=== PATIENT | male | born 1965 | race African-American/Black ===

== ENCOUNTER 2020-05-31 17:12 | Inpatient (IN) | payer OTHER ==
[~2020-05-31] VITALS: Ht 190.5 cm; Wt 102.1 kg
[~2020-05-31 17:12] MED LIST: LISI-517 PO
[2020-05-31] MEDS ORDERED: MORPHINE SULFATE 4 MG/ML VIAL. IV/SQ PRN (18:15)
[2020-05-31] MEDS ORDERED: PIPERACILLIN/TAZOBACTAM 3.375 GM in IV NORMAL SALINE 50ML 50 ML IV ONE (18:30)
--- NOTE | 2020-05-31 18:46 | RAD ---
XR CHEST 1V History: Reason: necrotic wound / Spl. Instructions: / History: Comparison: None. Findings: No consolidation or pleural effusion. Normal heart size. No pneumothorax. Impression: 1. No acute cardiopulmonary process. Electronically signed by: Janak Celestin DO (05/31/2020 6:43 PM) [facility]
--- NOTE | 2020-05-31 18:51 | RAD ---
XR FOOT_LEFT 3 VIEWS History: Reason: necrotic wound / Spl. Instructions: / History: Technique: 3 views left foot. Comparison: None. Findings: Gas along the plantar aspect of the first digit. First digit soft tissue swelling. Normal alignment. No fracture. No radiographic evidence of osteomyelitis. Mild first MTP DJD. Plantar calcaneal spur. M ild ankle DJD. Dorsal foot soft tissue swelling. Impression: 1. Focus of gas along the plantar aspect of the first digit, may relate to known wound or subcutaneo us gas related to gas-forming organisms. Recommend further clinical evaluation and short-term follow- up. 2. No radiographic evidence of osteomyelitis. If persistent clinical concern, MRI can further evalua te. 3. Diffuse dorsal foot soft tissue swelling. Electronically signed by: Janak Celestin DO (05/31/2020 6:49 PM) SAMANTHA
[2020-05-31] MEDS ORDERED: VANCOMYCIN 2 GM in IV NORMAL SALINE 500ML BAG 500 ML IV ONE (19:00)
[2020-05-31 19:02] LABS: BASO # 0.1 x10^3/uL (0.0-0.2); BASO % 0 % (0-3); EOS # 0.1 x10^3/uL (0.0-0.7); EOS % 0 % (0-3); HEMATOCRIT 28.2 % (39.0-53.0); HEMOGLOBIN 9.4 g/dL (13.0-17.5); LYMPH # 1.5 x10^3/uL (1.0-4.8); LYMPH % 11 % (24-48); MEAN CORPUSCULAR HEMOGLOBIN 25 pg (25-35); MEAN CORPUSCULAR HGB CONC 34 g/dL (31-37); MEAN CORPUSCULAR VOLUME 75 fL (79-100); MONO # 1.3 x10^3/uL (0.0-1.1); MONO % 9 % (0-9); NEUT # 11.2 x10^3/uL (1.8-7.7); NEUT % 80 % (31-73); PLATELET COUNT 361 x10^3/uL (140-400); RED BLOOD COUNT 3.76 x10^6/uL (4.30-5.70); RED CELL DISTRIBUTION WIDTH 18.8 % (11.5-14.5); WHITE BLOOD COUNT 14.1 x10^3/uL (4.0-11.0)
--- NOTE | 2020-05-31 19:02 | EKG ---
[facility] [address] [place] [address] Test Date: 2020-05-31 Test Time: 18:22:25 Pat Name: TAMARA FOFANA Department: Room: Gender: M [employer] Compliance Officer: : 1965 Requested By: DANIEL PENA Order Number: [id number] Reading MD: Measurements Intervals Hunt Rate: 70 P: 35 MA: 160 QRS: -10 QRSD: 92 T: 30 QT: 408 QTc: 443 Interpretive Statements SINUS RHYTHM LEFTWARD AXIS OTHERWISE NORMAL ECG RI6.01 No previous ECG available for comparison
[2020-05-31 19:08] LABS: PROTHROMBIN TIME PATIENT 15.7 SEC (11.7-14.0)
[2020-05-31 19:10] LABS: CALCIUM 8.6 mg/dL (8.5-10.1); CREATININE 1.5 mg/dL (0.7-1.3); GFR 58.4; POTASSIUM 3.9 mmol/L (3.5-5.1)
--- NOTE | 2020-05-31 19:13 | HP ---
ADMIT DATE: 05/31/2020 CHIEF COMPLAINT: Left lower extremity diabetic ulcer. HISTORY OF PRESENT ILLNESS: The patient is a pleasant 55-year-old male who has peripheral vascular disease. He has had diabetes for many years. He has never had any surgeries on his legs, but the left lower extremity he has got a severe diabetic wound. I discussed the case with the ER physician. We are going to admit the patient and consult Orthopedics and give him some IV antibiotics and wound care. PAST MEDICAL HISTORY: Diabetes, hypertension, hyperlipidemia, noncompliance, and peripheral vascular disease. ALLERGIES: None. FAMILY HISTORY: Diabetes. SOCIAL HISTORY: Does not drink, smoke or take drugs. He is . MEDICATIONS: Reviewed, please refer to the MRAD. REVIEW OF SYSTEMS: GENERAL: No history of weight change, weakness or fevers. SKIN: No bruising, hair changes or rashes. EYES: No blurred, double or loss of vision. NOSE AND THROAT: No history of nosebleeds, hoarseness or sore throat. HEART: No history of palpitations, chest pain or shortness of breath on exertion. LUNGS: Denies cough, hemoptysis, wheezing or shortness of breath. GASTROINTESTINAL: Denies changes in appetite, nausea, vomiting, diarrhea or constipation. GENITOURINARY: No history of frequency, urgency, hesitancy or nocturia. NEUROLOGIC: Denies history of numbness, tingling, tremor or weakness. PSYCHIATRIC: No history of panic, anxiety or depression. ENDOCRINE: No history of heat or cold intolerance, polyuria or polydipsia. EXTREMITIES: He complains of left leg pain and oozing. PHYSICAL EXAMINATION: VITALS: Within normal limits and are stable. GENERAL: No apparent distress. Alert and oriented. HEENT: Normal cephalic atraumatic, external auditory canals are patent. EYES: Extraocular muscles are intact, pupils are equally round and reactive to light and accommodation. MUSCULOSKELETAL: Well developed, well nourished, good range of motion. ENDOCRINE: No thyromegaly was palpated. LYMPHATICS: No cervical chain or axillary nodes were noted. HEMATOPOIETIC: No bruising. NECK: Supple, no JVD, no thyromegaly was noted. LUNGS: Clear to auscultation in all lung gardner without rhonchi or wheezing. HEART: RRR, S1, S2 present. Peripheral pulses intact, no obvious murmurs were noted. ABDOMEN: Soft, nontender. Positive bowel sounds no organomegaly, normal bowel sounds. EXTREMITIES: The left leg has severe wounds. Please see the pictures. NEUROLOGIC: Normal speech, normal tone. A & O x 3, moves all extremities, no obvious focal deficits. PSYCHIATRIC: Normal affect, normal mood. Stable. SKIN: No ulcerations or rashes, good skin turgor, no jaundice. VASCULAR: Good capillary refill, neurovascular bundle appears to be intact. LABORATORY DATA: Pending. IMAGING: Foot x-ray shows focus of gas along the plantar aspect of the first digit, may relate to known wound or subcutaneous gas related to gas forming organisms. No osteomyelitis was noted. Diffuse soft tissue swelling. ASSESSMENT AND PLAN: Diabetic foot disease. The patient has been admitted. We will consult Orthopedics. IV antibiotics. Consult Infectious Disease. Home medications, deep vein thrombosis prophylaxis. Full code. PROGNOSIS: Guarded. ANCELMO TODD DO DR: TEX/carmen JOB#: [id number] / [id number]
[2020-05-31 19:16] LABS: ALBUMIN 1.7 g/dL (3.4-5.0); ALBUMIN/GLOBULIN RATIO 0.3 (1.0-1.7); TOTAL BILIRUBIN 1.8 mg/dL (0.2-1.0); TOTAL PROTEIN 8.1 g/dL (6.4-8.2)
[2020-05-31] MEDS: IV NORMAL SALINE 1000ML BAG 1,000 ML IV SCH ×3 (19:18→22:09)
[2020-05-31] MEDS: VANCOMYCIN PER PHARMACY MC PRN (20:15)
--- NOTE | 2020-05-31 20:19 | NUR ---
Pharmacy Vancomycin Dosing Note S: Consulted to monitor and dose vancomycin started 05/31/20. O: TAMARA FOFANA is a 55 year old M with , DIABETIC FOOT ULCER . Other Antibiotics: ZOSYN X1 IN ED LABS: Last BUN: 20 Last Creatinine: 1.5 Creatinine Clearance: 67 mL/min Last WBC: 14.1 Tmax (past 24 hours): AFEBRILE Vancomycin Dosing: Dosing Weight: Adjusted Target Trough: 10-20 A: Based on: VANCO dosing guidelines P: 1. Begin Vancomycin 2000mg LOAD dose, then 1250 mg IV q12h 2. Follow up Trough level on 06/02/20 at 0730 3. Pharmacy will continue to monitor, follow and adjust therapy as needed. EFREN OLIVEIRA RPH, 05/31/20 2019
[2020-05-31] MEDS ORDERED: MORPHINE SULFATE 4 MG/ML VIAL. IV PRN (20:30)
[2020-05-31] MEDS ORDERED: IV NORMAL SALINE 1000ML BAG 1,000 ML IV ONE (20:30)
[2020-05-31] MEDS ORDERED: ONDANSETRON PF 4 MG/2 ML VIAL. IV PRN (20:30)
[2020-05-31] MEDS ORDERED: ACETAMINOPHEN 325 MG TABLET. PO PRN (20:30)
--- NOTE | 2020-05-31 21:02 | PHYS DOC ---
Past Medical History Past Medical History: CVA, Diabetes-Type II, High Cholesterol, Hypertension Past Surgical History: Appendectomy Smoking Status: Never Smoker Alcohol Use: None Drug Use: None General Adult EDM: Chief Complaint: WOUND CHECK HPI: HPI: Patient is a 55 year old male with history of diabetes type 2, hypertension, high cholesterol, PVD, who presents to the ED today to be evaluated for diabetic foot ulcer on the left that he has had for 3 weeks. Patient states he went to see the doctor today and was told his infection has gotten worse and he needs to come to the ED and be admitted. Patient denies any fever, denies any nausea vomiting. Review of Systems: Review of Systems: Constitutional: Denies fever or chills. [] Eyes: Denies change in visual acuity. [] HENT: Denies nasal congestion or sore throat. [] Respiratory: Denies cough or shortness of breath. [] Cardiovascular: Denies chest pain or edema. [] GI: Denies abdominal pain, nausea, vomiting, bloody stools or diarrhea. [] : Denies dysuria. [] Musculoskeletal: Denies back pain or joint pain. [] Integument: Reports diabetic foot ulcer to the left Neurologic: Denies headache, focal weakness or sensory changes. [] Psychiatric: Denies depression or anxiety. [] Heart Score: C/O Chest Pain: N/A Risk Factors: Risk Factors: DM, Current or recent (<one month) smoker, HTN, HLP, family history of CAD, obesity. Risk Scores: Score 0 - 3: 2.5% MACE over next 6 weeks - Discharge Home Score 4 - 6: 20.3% MACE over next 6 weeks - Admit for Clinical Observation Score 7 - 10: 72.7% MACE over next 6 weeks - Early Invasive Strategies Current Medications: Current Medications Medications (Trade) Dose Ordered Sig/Beverly Start Time Stop Time Status Last Admin Dose Admin Morphine Sulfate (Morphine Sulfate) 4 mg PRN Q15MIN PRN 05/31/20 18:15 05/31/20 20:26 DC Piperacillin Sod/ Tazobactam Sod 3.375 gm/Sodium Chloride 50 ml @ 100 mls/hr 1X ONCE 05/31/20 18:30 05/31/20 18:59 DC 05/31/20 19:18 100 MLS/HR Sodium Chloride 1,000 ml @ 2,550 mls/hr Q24M 05/31/20 18:30 05/31/20 19:30 DC 05/31/20 20:16 2,550 MLS/HR Vancomycin HCl (Vanco Per Pharmacy) 1 each PRN DAILY PRN 05/31/20 18:15 05/31/20 20:15 1 EACH Allergies: Allergies: Allergies Coded Allergies Type Severity Reaction Last Updated Verified No Known Drug Allergies 03/04/13 No Physical Exam: PE: Constitutional: Well developed, well nourished, no acute distress, non-toxic appearance. [] HENT: Normocephalic, atraumatic, bilateral external ears normal, oropharynx mois t, no oral exudates, nose normal. [] Eyes: PERRLA, EOMI, conjunctiva normal, no discharge. [] Neck: Normal range of motion, no tenderness, supple, no stridor. [] Cardiovascular:Heart rate regular rhythm, no murmur [] Lungs & Thorax: Bilateral breath sounds clear to auscultation [] Abdomen: Bowel sounds normal, soft, no tenderness, no masses, no pulsatile masses. [] Skin: Left plantar foot along the great toe and metacarpal with the necrotic black wound approximately 8 x 4 cm. There is another wound on the left fifth toe, left third toe, plantar aspect. There is a roughly 2 x 2 cm. Mild edema noted to the foot. Drainage from the wounds noted. Multiple wounds noted in between the toes as well as the top of the left foot toes. Left bryson with 2 other wounds each roughly 2 cm. Back: No tenderness, no CVA tenderness. [] Extremities: No tenderness, no cyanosis, no clubbing, ROM intact, no edema. [] Neurologic: Alert and oriented X 3, normal motor function, normal sensory function, no focal deficits noted. [] Psychologic: Affect normal, judgement normal, mood normal. [] Current Patient Data: Labs: Laboratory Tests Test 05/31/20 18:25 05/31/20 18:48 SARS-CoV-2 Antigen (Rapid) Negative (NEGATIVE) White Blood Count 14.1 x10^3/uL (4.0-11.0) H Red Blood Count 3.76 x10^6/uL (4.30-5.70) L Hemoglobin 9.4 g/dL (13.0-17.5) L Hematocrit 28.2 % (39.0-53.0) L Mean Corpuscular Volume 75 fL (79-100) L Mean Corpuscular Hemoglobin 25 pg (25-35) Mean Corpuscular Hemoglobin Concent 34 g/dL (31-37) Red Cell Distribution Width 18.8 % (11.5-14.5) H Platelet Count 361 x10^3/uL (140-400) Neutrophils (%) (Auto) 80 % (31-73) H Lymphocytes (%) (Auto) 11 % (24-48) L Monocytes (%) (Auto) 9 % (0-9) Eosinophils (%) (Auto) 0 % (0-3) Basophils (%) (Auto) 0 % (0-3) Neutrophils # (Auto) 11.2 x10^3/uL (1.8-7.7) H Lymphocytes # (Auto) 1.5 x10^3/uL (1.0-4.8) Monocytes # (Auto) 1.3 x10^3/uL (0.0-1.1) H Eosinophils # (Auto) 0.1 x10^3/uL (0.0-0.7) Basophils # (Auto) 0.1 x10^3/uL (0.0-0.2) Prothrombin Time 15.7 SEC (11.7-14.0) H Prothrombin Time INR 1.3 (0.8-1.1) H Activated Partial Thromboplast Time 37 SEC (24-38) Sodium Level 134 mmol/L (136-145) L Potassium Level 3.9 mmol/L (3.5-5.1) Chloride Level 96 mmol/L (98-107) L Carbon Dioxide Level 28 mmol/L (21-32) Anion Gap 10 (6-14) Blood Urea Nitrogen 20 mg/dL (8-26) Creatinine 1.5 mg/dL (0.7-1.3) H Estimated GFR (Cockcroft-Gault) 58.4 BUN/Creatinine Ratio 13 (6-20) Glucose Level 149 mg/dL (70-99) H Lactic Acid Level 0.9 mmol/L (0.4-2.0) Calcium Level 8.6 mg/dL (8.5-10.1) Total Bilirubin 1.8 mg/dL (0.2-1.0) H Aspartate Amino Transferase (AST) 31 U/L (15-37) Alanine Aminotransferase (ALT) 31 U/L (16-63) Alkaline Phosphatase 225 U/L (46-116) H Total Protein 8.1 g/dL (6.4-8.2) Albumin 1.7 g/dL (3.4-5.0) L Albumin/Globulin Ratio 0.3 (1.0-1.7) L Procalcitonin 3.40 ng/mL (0.00-0.10) H Laboratory Tests 05/31/20 18:48 Laboratory Tests 05/31/20 18:48 Vital Signs: Vital Signs Date Time Temp Pulse Resp B/P (MAP) Pulse Ox O2 Delivery O2 Flow Rate FiO2 05/31/20 17:17 97.4 68 18 123/65 (84) 98 Room Air 97.4 EKG: EK Interpreted by Dr. Casas sinus rhythm HR 70 no STEMI [] Radiology/Procedures: Radiology/Procedures: []PROCEDURE: FOOT LEFT 3V XR FOOT_LEFT 3 VIEWS History: Reason: necrotic wound / Spl. Instructions: / History: Technique: 3 views left foot. Comparison: None. Findings: Gas along the plantar aspect of the first digit. First digit soft tissue swelling. Normal alignment. No fracture. No radiographic evidence of osteomyelitis. Mild first MTP DJD. Plantar calcaneal spur. Mild ankle DJD. Dorsal foot soft tissue swelling. Impression: 1. Focus of gas along the plantar aspect of the first digit, may relate to known wound or subcutaneous gas related to gas-forming organisms. Recommend further clinical evaluation and short-term follow-up. 2. No radiographic evidence of osteomyelitis. If persistent clinical concern, MRI can further evaluate. 3. Diffuse dorsal foot soft tissue swelling. Electronically signed by: Janak Celestin DO (05/31/2020 6:49 PM) [facility] DICTATED and SIGNED BY: JANAK CELESTIN DO DATE: 05/31/20 [id number] PROCEDURE: PORTABLE CHEST 1V XR CHEST 1V History: Reason: necrotic wound / Spl. Instructions: / History: Comparison: None. Findings: No consolidation or pleural effusion. Normal heart size. No pneumothorax. Impression: 1. No acute cardiopulmonary process. Electronically signed by: Janak Celestin DO (05/31/2020 6:43 PM) [facility] DICTATED and SIGNED BY: JANAK CELESTIN Jimena DO DATE: 05/31/20 [id number] 0 Course & Med Decision Making: Course & Med Decision Making Pertinent Labs and Imaging studies reviewed. (See chart for details) This is a 55-year-old male patient with history of diabetes, PVD, presenting today with diabetic foot ulcer. The plantar aspect of the foot especially along the great toe and the first metatarsal is necrotic. Multiple areas of necrosis noted to the other toes. Vitals on arrival to the ED temperature 97.4, heart rate 68, respiration 18, blood pressure 133/65, O2 sats 98% on room air. CBC with a WBC of 14.4, hemoglobin 9.4, hematocrit 28.2, CMP with creatinine of 1.5, BUN of 20, lactic 0.9, procalcitonin 3.40. X-ray of the left foot noted for gas-forming infection. Patient was started on the sepsis protocol on arrival to the ED. He was given IV fluids as well as vancomycin and Zosyn. Consulted with Dr. Clifford who will take patient to OR in am Spoke with Dr. Aragon who accepted patient for admission. Catherine Disclaimer: [employer] Disclaimer: This electronic medical record was generated, in whole or in part, using a voice recognition dictation system. Departure Departure Impression: Primary Impression: Diabetic foot ulcer Qualified Codes: E11.621 - Type 2 diabetes mellitus with foot ulcer; L97.523 - Non-pressure chronic ulcer of other part of left foot with necrosis of muscle Additional Impressions: Acute on chronic renal failure Qualified Codes: N17.9 - Acute kidney failure, unspecified; N18.9 - Chronic kidney disease, unspecified Anemia Qualified Codes: D64.9 - Anemia, unspecified Disposition: 09 ADMITTED INPT THIS HOSP Condition: STABLE Referrals: NON,STAFF (PCP) DANIEL PENA APRN May 31, 2020 21:02
[2020-05-31 21:08] LABS: BILIRUBIN,URINE MODERATE (NEG); CLARITY,URINE CLEAR; COLOR,URINE AMBER; NITRITE,URINE NEGATIVE (NEG); PH,URINE 5.5 (<5.0-8.0); PROTEIN,URINE 30 mg/dL (NEG-TRACE)
[2020-05-31 21:17] LABS: BACTERIA,URINE 0 /HPF (0-FEW); GRANULAR CASTS,URINE FEW /HPF; HYALINE CASTS, URINE FEW /HPF; RBC,URINE OCC /HPF (0-2)
[2020-05-31 21:20] VITALS: BP 161/82
[2020-05-31] MEDS ORDERED: DIPH,PERTUSS(ACELL),TET VAC/PF 0.5 ML SYRINGE. VAX IM ONE (22:00)
[2020-05-31 23:00] VITALS: BP 175/85
[2020-05-31] MEDS ORDERED: SITA100T PO (23:07)
[2020-05-31] MEDS ORDERED: CARV25TA2 PO (23:07)
[2020-05-31] MEDS ORDERED: AMLO-186 PO (23:07)
[2020-05-31] MEDS ORDERED: ATOR40TA59 PO (23:07)
[2020-05-31] MEDS ORDERED: TAMS0.4C97 PO (23:07)
[2020-05-31] MEDS ORDERED: METF10007 PO (23:07)
[2020-05-31] MEDS ORDERED: SERT100T PO (23:07)
--- NOTE | 2020-05-31 23:22 | RAD ---
Exam: US DPLX VENOUS EXTREMITY LOWER LT Indication: Lower extremity edema, Left foot wound Technique: Color-flow and pulsed wave duplex ultrasound with compression of venous structures of the left lower extremity. Comparison: None Available. Findings: Occlusive thrombus in both posterior tibial veins. Occlusive thrombus in the left greater saphenous vein at the level of the mid thigh down through the ankle. Impression: 1. Positive for DVT in the left lower extremity. 2. Superficial thrombophlebitis involving the greater saphenous vein from the mid thigh to the ankle. Electronically signed by: Brennan Pineda MD (05/31/2020 11:19 PM) ABIMAEL
--- NOTE | 2020-05-31 23:26 | RAD ---
Realtime grayscale and color Duplex Doppler ultrasonography of the left lower extremity was performed . History: Left foot wound Comparison: None. Findings: Left: Common femoral artery peak systolic velocity measures 182 cm/s. Profunda femoris artery peak systolic velocity measures 121 cm/s. Proximal superficial femoral artery peak systolic velocity measures 271 cm/s. Mid superficial femoral artery peak systolic velocity measures 149 cm/s. Distal superficial femoral artery peak systolic velocity measures 157 cm/s. Popliteal artery peak systolic velocity measures 186 cm/s. Posterior tibial artery peak systolic velocity measures 161 cm/s. Dorsalis pedis artery peak systolic velocity measures 96 cm/s. Monophasic waveforms in the posterior tibial artery and dorsalis pedis artery, consistent with a more proximal stenosis. Impression: Areas of elevated peak systolic velocity in the left lower extremity arterial vasculature consistent with stenosis, most pronounced in the superficial femoral artery proximally. Electronically signed by: Brennan Pineda MD (05/31/2020 11:24 PM) ABIMAEL
[2020-06-01] VITALS (10 sets, daily range): BP systolic 169–198; BP diastolic 82–98
[2020-06-01 04:20] LABS: BASO # 0.1 x10^3/uL (0.0-0.2); BASO % 1 % (0-3); EOS % 0 % (0-3); HEMOGLOBIN 8.7 g/dL (13.0-17.5); LYMPH # 1.8 x10^3/uL (1.0-4.8); LYMPH % 14 % (24-48); MEAN CORPUSCULAR HEMOGLOBIN 25 pg (25-35); MEAN CORPUSCULAR HGB CONC 33 g/dL (31-37); MEAN CORPUSCULAR VOLUME 75 fL (79-100); MONO # 1.3 x10^3/uL (0.0-1.1); MONO % 10 % (0-9); NEUT # 9.7 x10^3/uL (1.8-7.7); NEUT % 75 % (31-73); PLATELET COUNT 361 x10^3/uL (140-400); RED BLOOD COUNT 3.47 x10^6/uL (4.30-5.70); RED CELL DISTRIBUTION WIDTH 18.8 % (11.5-14.5); WHITE BLOOD COUNT 12.9 x10^3/uL (4.0-11.0)
[2020-06-01 05:01] LABS: ALBUMIN 1.4 g/dL (3.4-5.0); ALBUMIN/GLOBULIN RATIO 0.2 (1.0-1.7); CALCIUM 7.8 mg/dL (8.5-10.1); CREATININE 1.4 mg/dL (0.7-1.3); GFR 63.2; POTASSIUM 3.6 mmol/L (3.5-5.1); TOTAL BILIRUBIN 1.7 mg/dL (0.2-1.0); TOTAL PROTEIN 7.1 g/dL (6.4-8.2)
[2020-06-01] MEDS ORDERED: VANCOMYCIN 1.25 GM in IV NORMAL SALINE 250ML 250 ML IV SCH (08:00)
--- NOTE | 2020-06-01 08:35 | PDOC ---
Infectious Disease Note Vital Sign Vital Signs Vital Signs Date Time Temp Pulse Resp B/P (MAP) Pulse Ox O2 Delivery O2 Flow Rate FiO2 06/01/20 08:18 Room Air 06/01/20 03:00 100.2 85 16 172/86 (114) 95 100.2 Labs Lab Laboratory Tests Test 05/31/20 18:25 05/31/20 18:48 05/31/20 20:58 06/01/20 04:00 SARS-CoV-2 Antigen (Rapid) Negative (NEGATIVE) White Blood Count 14.1 x10^3/uL (4.0-11.0) 12.9 x10^3/uL (4.0-11.0) Red Blood Count 3.76 x10^6/uL (4.30-5.70) 3.47 x10^6/uL (4.30-5.70) Hemoglobin 9.4 g/dL (13.0-17.5) 8.7 g/dL (13.0-17.5) Hematocrit 28.2 % (39.0-53.0) 26.0 % (39.0-53.0) Mean Corpuscular Volume 75 fL (79-100) 75 fL (79-100) Mean Corpuscular Hemoglobin 25 pg (25-35) 25 pg (25-35) Mean Corpuscular Hemoglobin Concent 34 g/dL (31-37) 33 g/dL (31-37) Red Cell Distribution Width 18.8 % (11.5-14.5) 18.8 % (11.5-14.5) Platelet Count 361 x10^3/uL (140-400) 361 x10^3/uL (140-400) Neutrophils (%) (Auto) 80 % (31-73) 75 % (31-73) Lymphocytes (%) (Auto) 11 % (24-48) 14 % (24-48) Monocytes (%) (Auto) 9 % (0-9) 10 % (0-9) Eosinophils (%) (Auto) 0 % (0-3) 0 % (0-3) Basophils (%) (Auto) 0 % (0-3) 1 % (0-3) Neutrophils # (Auto) 11.2 x10^3/uL (1.8-7.7) 9.7 x10^3/uL (1.8-7.7) Lymphocytes # (Auto) 1.5 x10^3/uL (1.0-4.8) 1.8 x10^3/uL (1.0-4.8) Monocytes # (Auto) 1.3 x10^3/uL (0.0-1.1) 1.3 x10^3/uL (0.0-1.1) Eosinophils # (Auto) 0.1 x10^3/uL (0.0-0.7) 0.0 x10^3/uL (0.0-0.7) Basophils # (Auto) 0.1 x10^3/uL (0.0-0.2) 0.1 x10^3/uL (0.0-0.2) Prothrombin Time 15.7 SEC (11.7-14.0) Prothromb Time International Ratio 1.3 (0.8-1.1) Activated Partial Thromboplast Time 37 SEC (24-38) Sodium Level 134 mmol/L (136-145) 135 mmol/L (136-145) Potassium Level 3.9 mmol/L (3.5-5.1) 3.6 mmol/L (3.5-5.1) Chloride Level 96 mmol/L (98-107) 100 mmol/L (98-107) Carbon Dioxide Level 28 mmol/L (21-32) 26 mmol/L (21-32) Anion Gap 10 (6-14) 9 (6-14) Blood Urea Nitrogen 20 mg/dL (8-26) 19 mg/dL (8-26) Creatinine 1.5 mg/dL (0.7-1.3) 1.4 mg/dL (0.7-1.3) Estimated GFR (Cockcroft-Gault) 58.4 63.2 BUN/Creatinine Ratio 13 (6-20) 14 (6-20) Glucose Level 149 mg/dL (70-99) 181 mg/dL (70-99) Lactic Acid Level 0.9 mmol/L (0.4-2.0) Calcium Level 8.6 mg/dL (8.5-10.1) 7.8 mg/dL (8.5-10.1) Total Bilirubin 1.8 mg/dL (0.2-1.0) 1.7 mg/dL (0.2-1.0) Aspartate Amino Transf (AST/SGOT) 31 U/L (15-37) 28 U/L (15-37) Alanine Aminotransferase (ALT/SGPT) 31 U/L (16-63) 26 U/L (16-63) Alkaline Phosphatase 225 U/L (46-116) 202 U/L (46-116) Total Protein 8.1 g/dL (6.4-8.2) 7.1 g/dL (6.4-8.2) Albumin 1.7 g/dL (3.4-5.0) 1.4 g/dL (3.4-5.0) Albumin/Globulin Ratio 0.3 (1.0-1.7) 0.2 (1.0-1.7) Procalcitonin 3.40 ng/mL (0.00-0.10) Urine Collection Type Unknown Urine Color Zeina Urine Clarity Clear Urine pH 5.5 (<5.0-8.0) Urine Specific [place] 1.015 (1.000-1.030) Urine Protein 30 mg/dL (NEG-TRACE) Urine Glucose (UA) Negative mg/dL (NEG) Urine Ketones (Stick) Trace mg/dL (NEG) Urine Blood Negative (NEG) Urine Nitrite Negative (NEG) Urine Bilirubin Moderate (NEG) Urine Urobilinogen Dipstick 4.0 mg/dL (0.2 mg/dL) Urine Leukocyte Esterase Trace (NEG) Urine RBC Occ /HPF (0-2) Urine WBC 5-10 /HPF (0-4) Urine Squamous Epithelial Cells Few /LPF Urine Bacteria 0 /HPF (0-FEW) Urine Cellular Casts Few /HPF Urine Hyaline Casts Few /HPF Urine Granular Casts Few /HPF Test 06/01/20 08:08 Glucose (Fingerstick) 172 mg/dL (70-99) Objective Assessment Patient seen consult dictated Plan Plan of Care / EMELY VILLELA MD Jun 01, 2020 08:35
[2020-06-01] MEDS: PIPERACILLIN/TAZOBACTAM 3.375 GM in IV NORMAL SALINE 50ML 50 ML IV SCH ×4 (09:00→23:42)
--- NOTE | 2020-06-01 09:20 | CONS ---
DATE OF CONSULTATION: 06/01/2020 REQUESTING PHYSICIAN: Dr. Aragon. REASON FOR CONSULTATION: Diabetic foot infection. HISTORY OF PRESENT ILLNESS: This is a 55-year-old gentleman with history of peripheral vascular disease and diabetes, who came in with 2-week history of "he said he was in a kitchen and he noticed skin was peeling off." The patient has a foul smelling necrotic wound into the left foot. The patient was put on vancomycin and consult has been requested. The patient denies any fever. Denies any nausea, vomiting, diarrhea, chest pain or shortness of breath. Denies any trauma. PAST MEDICAL HISTORY: Positive for diabetes mellitus, hypertension, CVA, has had appendicectomy, hyperlipidemia and history of depression. SOCIAL HISTORY: Negative for smoking, alcohol use or drug use. ALLERGIES: No known drug allergies. CURRENT MEDICATIONS: Reviewed. REVIEW OF SYSTEMS: As per HPI, all other systems reviewed are negative. PHYSICAL EXAMINATION: GENERAL: Alert, oriented gentleman, not in distress. VITAL SIGNS: Stable with a T-max 100.2, pulse 85, respirations 16 and blood pressure 172/86. HEENT: Both pupils are round and reacting. No conjunctival lesion. No lesion in the mouth. NECK: Supple, no JVP, no lymphadenopathy. LUNGS: Clear. HEART: S1, S2 regular. ABDOMEN: Soft, nontender, no organomegaly. EXTREMITIES: The right lower extremity is unremarkable. The patient does have some superficial skin breakdowns and scabs present. Left lower extremity, the foot is a foul smelling necrotic distal foot involving the large areas of toes and the foot. Dorsalis pedis is not palpable. NEUROLOGIC: The patient is alert, awake and appropriate. No focal neurologic deficit. LABORATORY DATA: White count is 12.9, BUN and creatinine is 19 and 1.4. Liver functions are normal. Total bilirubin is 1.7. Urinalysis 5-10 wbc's. COVID negative. Procalcitonin is 0.4. X-ray of the chest is unremarkable. X-ray of the foot showed a focus of gas along the plantar aspect of the first digit may relate to the known wound or subcutaneous gas forming organism. No osteomyelitis seen. Ultrasound of the lower extremity showed left lower extremity arterial vascular stenosis and the venous Doppler also showed DVT in the left lower extremity, superficial thrombophlebitis is also there. IMPRESSION: 1. Left foot diabetic infection with gangrenous changes. 2. Peripheral arterial disease. 3. Gas in the x-ray probably from the wound as the patient does not look systemically sick, having gas forming organism infection. 4. Diabetes. 5. Hypertension. 6. Renal insufficiency. RECOMMENDATIONS: Continue vancomycin. Although creatinine is improving, we will watch closely. Add Zosyn. Supportive care also get Vascular Surgery involved and we will continue to follow. Thank you very much, Dr. Aragon, for giving me the opportunity to participate in this patient's care. EMELY VILLELA MD DR: LIVIA/carmen JOB#: [id number] / [id number]
--- NOTE | 2020-06-01 10:16 | PDOC ---
PROGRESS NOTES Date of Service DATE: 06/01/20 TIME: 10:13 Subjective Subjective Problems overnight: About 2 weeks worth of worsening left foot pain symptoms and turning black. Objective Vital Signs Vital Signs Date Time Temp Pulse Resp B/P (MAP) Pulse Ox O2 Delivery O2 Flow Rate FiO2 06/01/20 08:18 Room Air 06/01/20 07:00 97.5 129 33 186/88 (120) 98 97.5 Physical Exam Clear necrosis of the left foot distally with adequate sensation otherwise and some scabbed areas on the legs overall but no evidence of proximal infection Labs Laboratory Tests Test 05/31/20 18:25 05/31/20 18:48 05/31/20 20:58 06/01/20 04:00 SARS-CoV-2 Antigen (Rapid) Negative (NEGATIVE) White Blood Count 14.1 x10^3/uL (4.0-11.0) 12.9 x10^3/uL (4.0-11.0) Red Blood Count 3.76 x10^6/uL (4.30-5.70) 3.47 x10^6/uL (4.30-5.70) Hemoglobin 9.4 g/dL (13.0-17.5) 8.7 g/dL (13.0-17.5) Hematocrit 28.2 % (39.0-53.0) 26.0 % (39.0-53.0) Mean Corpuscular Volume 75 fL (79-100) 75 fL (79-100) Mean Corpuscular Hemoglobin 25 pg (25-35) 25 pg (25-35) Mean Corpuscular Hemoglobin Concent 34 g/dL (31-37) 33 g/dL (31-37) Red Cell Distribution Width 18.8 % (11.5-14.5) 18.8 % (11.5-14.5) Platelet Count 361 x10^3/uL (140-400) 361 x10^3/uL (140-400) Neutrophils (%) (Auto) 80 % (31-73) 75 % (31-73) Lymphocytes (%) (Auto) 11 % (24-48) 14 % (24-48) Monocytes (%) (Auto) 9 % (0-9) 10 % (0-9) Eosinophils (%) (Auto) 0 % (0-3) 0 % (0-3) Basophils (%) (Auto) 0 % (0-3) 1 % (0-3) Neutrophils # (Auto) 11.2 x10^3/uL (1.8-7.7) 9.7 x10^3/uL (1.8-7.7) Lymphocytes # (Auto) 1.5 x10^3/uL (1.0-4.8) 1.8 x10^3/uL (1.0-4.8) Monocytes # (Auto) 1.3 x10^3/uL (0.0-1.1) 1.3 x10^3/uL (0.0-1.1) Eosinophils # (Auto) 0.1 x10^3/uL (0.0-0.7) 0.0 x10^3/uL (0.0-0.7) Basophils # (Auto) 0.1 x10^3/uL (0.0-0.2) 0.1 x10^3/uL (0.0-0.2) Prothrombin Time 15.7 SEC (11.7-14.0) Prothromb Time International Ratio 1.3 (0.8-1.1) Activated Partial Thromboplast Time 37 SEC (24-38) Sodium Level 134 mmol/L (136-145) 135 mmol/L (136-145) Potassium Level 3.9 mmol/L (3.5-5.1) 3.6 mmol/L (3.5-5.1) Chloride Level 96 mmol/L (98-107) 100 mmol/L (98-107) Carbon Dioxide Level 28 mmol/L (21-32) 26 mmol/L (21-32) Anion Gap 10 (6-14) 9 (6-14) Blood Urea Nitrogen 20 mg/dL (8-26) 19 mg/dL (8-26) Creatinine 1.5 mg/dL (0.7-1.3) 1.4 mg/dL (0.7-1.3) Estimated GFR (Cockcroft-Gault) 58.4 63.2 BUN/Creatinine Ratio 13 (6-20) 14 (6-20) Glucose Level 149 mg/dL (70-99) 181 mg/dL (70-99) Lactic Acid Level 0.9 mmol/L (0.4-2.0) Calcium Level 8.6 mg/dL (8.5-10.1) 7.8 mg/dL (8.5-10.1) Total Bilirubin 1.8 mg/dL (0.2-1.0) 1.7 mg/dL (0.2-1.0) Aspartate Amino Transf (AST/SGOT) 31 U/L (15-37) 28 U/L (15-37) Alanine Aminotransferase (ALT/SGPT) 31 U/L (16-63) 26 U/L (16-63) Alkaline Phosphatase 225 U/L (46-116) 202 U/L (46-116) Total Protein 8.1 g/dL (6.4-8.2) 7.1 g/dL (6.4-8.2) Albumin 1.7 g/dL (3.4-5.0) 1.4 g/dL (3.4-5.0) Albumin/Globulin Ratio 0.3 (1.0-1.7) 0.2 (1.0-1.7) Procalcitonin 3.40 ng/mL (0.00-0.10) Urine Collection Type Unknown Urine Color Zeina Urine Clarity Clear Urine pH 5.5 (<5.0-8.0) Urine Specific [place] 1.015 (1.000-1.030) Urine Protein 30 mg/dL (NEG-TRACE) Urine Glucose (UA) Negative mg/dL (NEG) Urine Ketones (Stick) Trace mg/dL (NEG) Urine Blood Negative (NEG) Urine Nitrite Negative (NEG) Urine Bilirubin Moderate (NEG) Urine Urobilinogen Dipstick 4.0 mg/dL (0.2 mg/dL) Urine Leukocyte Esterase Trace (NEG) Urine RBC Occ /HPF (0-2) Urine WBC 5-10 /HPF (0-4) Urine Squamous Epithelial Cells Few /LPF Urine Bacteria 0 /HPF (0-FEW) Urine Cellular Casts Few /HPF Urine Hyaline Casts Few /HPF Urine Granular Casts Few /HPF Test 06/01/20 08:08 Glucose (Fingerstick) 172 mg/dL (70-99) Laboratory Tests Test 05/31/20 18:25 05/31/20 18:48 05/31/20 20:58 06/01/20 04:00 SARS-CoV-2 Antigen (Rapid) Negative (NEGATIVE) White Blood Count 14.1 x10^3/uL (4.0-11.0) 12.9 x10^3/uL (4.0-11.0) Red Blood Count 3.76 x10^6/uL (4.30-5.70) 3.47 x10^6/uL (4.30-5.70) Hemoglobin 9.4 g/dL (13.0-17.5) 8.7 g/dL (13.0-17.5) Hematocrit 28.2 % (39.0-53.0) 26.0 % (39.0-53.0) Mean Corpuscular Volume 75 fL (79-100) 75 fL (79-100) Mean Corpuscular Hemoglobin 25 pg (25-35) 25 pg (25-35) Mean Corpuscular Hemoglobin Concent 34 g/dL (31-37) 33 g/dL (31-37) Red Cell Distribution Width 18.8 % (11.5-14.5) 18.8 % (11.5-14.5) Platelet Count 361 x10^3/uL (140-400) 361 x10^3/uL (140-400) Neutrophils (%) (Auto) 80 % (31-73) 75 % (31-73) Lymphocytes (%) (Auto) 11 % (24-48) 14 % (24-48) Monocytes (%) (Auto) 9 % (0-9) 10 % (0-9) Eosinophils (%) (Auto) 0 % (0-3) 0 % (0-3) Basophils (%) (Auto) 0 % (0-3) 1 % (0-3) Neutrophils # (Auto) 11.2 x10^3/uL (1.8-7.7) 9.7 x10^3/uL (1.8-7.7) Lymphocytes # (Auto) 1.5 x10^3/uL (1.0-4.8) 1.8 x10^3/uL (1.0-4.8) Monocytes # (Auto) 1.3 x10^3/uL (0.0-1.1) 1.3 x10^3/uL (0.0-1.1) Eosinophils # (Auto) 0.1 x10^3/uL (0.0-0.7) 0.0 x10^3/uL (0.0-0.7) Basophils # (Auto) 0.1 x10^3/uL (0.0-0.2) 0.1 x10^3/uL (0.0-0.2) Prothrombin Time 15.7 SEC (11.7-14.0) Prothromb Time International Ratio 1.3 (0.8-1.1) Activated Partial Thromboplast Time 37 SEC (24-38) Sodium Level 134 mmol/L (136-145) 135 mmol/L (136-145) Potassium Level 3.9 mmol/L (3.5-5.1) 3.6 mmol/L (3.5-5.1) Chloride Level 96 mmol/L (98-107) 100 mmol/L (98-107) Carbon Dioxide Level 28 mmol/L (21-32) 26 mmol/L (21-32) Anion Gap 10 (6-14) 9 (6-14) Blood Urea Nitrogen 20 mg/dL (8-26) 19 mg/dL (8-26) Creatinine 1.5 mg/dL (0.7-1.3) 1.4 mg/dL (0.7-1.3) Estimated GFR (Cockcroft-Gault) 58.4 63.2 BUN/Creatinine Ratio 13 (6-20) 14 (6-20) Glucose Level 149 mg/dL (70-99) 181 mg/dL (70-99) Lactic Acid Level 0.9 mmol/L (0.4-2.0) Calcium Level 8.6 mg/dL (8.5-10.1) 7.8 mg/dL (8.5-10.1) Total Bilirubin 1.8 mg/dL (0.2-1.0) 1.7 mg/dL (0.2-1.0) Aspartate Amino Transf (AST/SGOT) 31 U/L (15-37) 28 U/L (15-37) Alanine Aminotransferase (ALT/SGPT) 31 U/L (16-63) 26 U/L (16-63) Alkaline Phosphatase 225 U/L (46-116) 202 U/L (46-116) Total Protein 8.1 g/dL (6.4-8.2) 7.1 g/dL (6.4-8.2) Albumin 1.7 g/dL (3.4-5.0) 1.4 g/dL (3.4-5.0) Albumin/Globulin Ratio 0.3 (1.0-1.7) 0.2 (1.0-1.7) Procalcitonin 3.40 ng/mL (0.00-0.10) Urine Collection Type Unknown Urine Color Zeina Urine Clarity Clear Urine pH 5.5 (<5.0-8.0) Urine Specific [place] 1.015 (1.000-1.030) Urine Protein 30 mg/dL (NEG-TRACE) Urine Glucose (UA) Negative mg/dL (NEG) Urine Ketones (Stick) Trace mg/dL (NEG) Urine Blood Negative (NEG) Urine Nitrite Negative (NEG) Urine Bilirubin Moderate (NEG) Urine Urobilinogen Dipstick 4.0 mg/dL (0.2 mg/dL) Urine Leukocyte Esterase Trace (NEG) Urine RBC Occ /HPF (0-2) Urine WBC 5-10 /HPF (0-4) Urine Squamous Epithelial Cells Few /LPF Urine Bacteria 0 /HPF (0-FEW) Urine Cellular Casts Few /HPF Urine Hyaline Casts Few /HPF Urine Granular Casts Few /HPF Test 06/01/20 08:08 Glucose (Fingerstick) 172 mg/dL (70-99) Imaging Vascular studies noted proximal occlusion and monophasic flow distally Assessment Assessment 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 I went over with him that at least he should have consideration of potentially correcting the vascular issues as I think is a little premature to address the foot right now prior to addressing those issues. Full consult dictated Justicifation of Admission Dx: Justifications for Admission: Justification of Admission Dx: N/A MATTIE GABRIEL MD Jun 01, 2020 10:16
--- NOTE | 2020-06-01 10:27 | NUR ---
This RN notified Dr. Condon of pt's elevated BP. Dr. Condon stated he would place orders for Labetolol IV. Will await these orders.
[2020-06-01] MEDS: VANCOMYCIN PER PHARMACY MC PRN (11:22)
[2020-06-01] MEDS: LABETALOL 20 MG/4 ML DISP.SYRIN. IVP PRN (11:37)
[2020-06-01] MEDS ORDERED: IV RINGERS,LACTATED 1000ML 1,000 ML IV SCH (12:45)
[2020-06-01] MEDS ORDERED: HYDROmorphone 2 MG/ML VIAL IVP PRN (12:45)
[2020-06-01] MEDS ORDERED: MORPHINE SULFATE 2 MG/ML VIAL. IVP PRN (12:45)
[2020-06-01] MEDS ORDERED: fentaNYL PF VIAL 100 MCG/2 ML VIAL IVP PRN ×2 (12:45)
[2020-06-01] MEDS ORDERED: PROCHLORPERAZINE 10 MG/2 ML VIAL. IVP PRN (12:45)
[2020-06-01] MEDS ORDERED: INSULIN LISPRO 100 UNIT/ML 3ML VIAL for OP,RR ONLY. SQ PRN (12:45)
--- NOTE | 2020-06-01 12:58 | NUR ---
SW following for discharge planning. Spoke with RN and reviewed chart. Pt from home. Pt has [employer] insurance. Possible surgery pending vascular. Room air, IV Vanco and IV Zosyn. Pt NPO at this time with a negative RAPID COVID result. SW following.
--- NOTE | 2020-06-01 13:54 | PDOC2 ---
CONSULT Date of Service Date of Service DATE: 06/01/20 TIME: 12:35 Reason for Consult Reason for Consult: Peripheral vascular disease, left foot wound Referring Physician Referring Physician: Dr. Crews Identification/Chief Complaint Chief Complaint Left foot wound Source Source: Chart review, Patient History of Present Illness Reason for Visit: This is a pleasant 55-year-old male with a history of diabetes, peripheral arterial disease, hypertension, hyperlipidemia and stroke who presented to the hospital with a left foot wound. Patient states that approximately 2 weeks ago he noticed the skin peeling off of his left foot. He presented to his primary care doctor yesterday and was subsequently admitted to the hospital for a worsening foot wound with skin necrosis, purulent drainage, malodorous, erythema and swelling. The wound necrosis and drainage involves most of his toes and forefoot. In addition he has two bullae on his medial calf draining purulent drainage. The patient has been seen by infectious disease and intravenous antibiotics have been initiated. Patient denies pain in his foot except while ambulating. He denies any history of lower extremity claudication. Patient has had a stroke involving his left side with weakness in his left upper arm and left leg. He was ambulating without difficulty prior to foot wound. Patient denies any fever or chills although temperature today was 100.2. Patient denies any nausea or vomiting. Patient denies any shortness of breath. Lower extremity venous ultrasound demonstrates posterior tibial vein thrombosis and greater saphenous vein thrombosis with superficial thrombophlebitis phlebitis. Lower extremity arterial ultrasound demonstrates monophasic flow in the posterior tibial and dorsalis pedis artery. Handheld arterial Doppler demonstrates biphasic dorsalis pedis and posterior tibial pulses. Left foot X-ray suggests gas along the plantar aspect of the first digit. Lab results WBC 14.9, procalcitonin 3.4, glucose 146, creatinine 1.4. Positive blood cultures: GRAM POSITIVE COCCI IN [employer]USTERS Past Medical History Cardiovascular: HTN, Hyperlipidemia CENTRAL NERVOUS SYSTEM: CVA Endocrine: Diabetes Past Surgical History Past Surgical History: Appendectomy Family History Family History Noncontributory to current problem Social History No ALCOHOL: none Lives: with Family Current Problem List Problem List Problems Medical Problems: (1) Acute on chronic renal failure Status: Acute (2) Anemia Status: Acute (3) Diabetic foot ulcer Status: Acute Current Medications Current Medications Current Medications Sodium Chloride 1,000 ml @ 2,550 mls/hr Q24M IV Last administered on 05/31/20at 22:09; Start 05/31/20 at 18:30; Stop 05/31/20 at 19:30; Status DC Morphine Sulfate (Morphine Sulfate) 4 mg PRN Q15MIN PRN IV/SQ PAIN GREATER THAN 3/10; Start 05/31/20 at 18:15; Stop 05/31/20 at 20:26; Status DC Piperacillin Sod/ Tazobactam Sod 3.375 gm/Sodium Chloride 50 ml @ 100 mls/hr 1X ONCE IV Last administered on 05/31/20at 19:18; Start 05/31/20 at 18:30; Stop 05/31/20 at 18:59; Status DC Vancomycin HCl (Vanco Per Pharmacy) 1 each PRN DAILY PRN MC SEE COMMENTS Last administered on 06/01/20at 11:22; Start 05/31/20 at 18:15 Vancomycin HCl 2 gm/Sodium Chloride 500 ml @ 250 mls/hr 1X ONCE IV Last administered on 05/31/20at 20:06; Start 05/31/20 at 19:00; Stop 05/31/20 at 20:59; Status DC Vancomycin HCl 1.25 gm/Sodium Chloride 250 ml @ 167 mls/hr Q12H IV Last administered on 06/01/20at 08:10; Start 06/01/20 at 08:00 Vancomycin HCl (Vancomycin Trough Level) 1 each 1X ONCE MC ; Start 06/02/20 at 07:30; Stop 06/02/20 at 07:31 Ondansetron HCl (Zofran) 4 mg PRN Q8HRS PRN IV NAUSEA/VOMITING; Start 05/31/20 at 20:30; Stop 06/01/20 at 20:29 Morphine Sulfate (Morphine Sulfate) 4 mg PRN Q2HR PRN IV PAIN; Start 05/31/20 at 20:30; Stop 06/01/20 at 20:29 Acetaminophen (Tylenol) 650 mg PRN Q4HRS PRN PO FEVER > 100.3'F; Start 05/31/20 at 20:30; Stop 06/01/20 at 20:29 Sodium Chloride 1,000 ml @ 125 mls/hr 1X ONCE IV Last administered on at 22:09; Start 05/31/20 at 20:30; Stop 06/01/20 at 04:29; Status DC Diphtheria/ Tetanus/Acell Pertussis (ADACEL TDap SYRINGE) 0.5 ml ONCE ONCE VAX IM ; Start 05/31/20 at 22:00; Stop 05/31/20 at 22:01; Status DC Piperacillin Sod/ Tazobactam Sod 3.375 gm/Sodium Chloride 50 ml @ 100 mls/hr Q6HRS IV ; Start 06/01/20 at 09:00 Labetalol HCl (Normodyne Iv Push) 10 mg PRN Q2HR PRN IVP HYPERTENSION Last administered on 06/01/20at 11:37; Start 06/01/20 at 10:30 Active Scripts Active Reported Amlodipine Besylate 5 Mg Tablet 5 Mg PO HS Carvedilol 25 Mg Tablet 25 Mg PO BIDWMEALS Atorvastatin Calcium 40 Mg Tablet 80 Mg PO HS Zoloft (Sertraline Hcl) 100 Mg Tablet 100 Mg PO HS Flomax (Tamsulosin Hcl) 0.4 Mg Cap.er.24h 0.4 Mg PO DAILY Metformin Hcl 1,000 Mg Tablet 1,000 Mg PO BIDWMEALS Januvia (Sitagliptin Phosphate) 100 Mg Tablet 100 Mg PO DAILY Allergies Allergies: Coded Allergies: No Known Drug Allergies (Unverified , 03/04/13) ROS Review of System Constitutional: Denies fever or chills Eyes: Denies any visual disturbances HENT: Denies nasal congestion or sore throat Respiratory: Denies cough or shortness of breath Cardiovascular: Denies any palpitations or chest pain GI: Denies abdominal pain, nausea, vomiting, bloody stools or diarrhea : Denies dysuria or hematuria Musculoskeletal: As per HPI Integument: As per HPI Neurologic: No gross deficits Endocrine: Diabetes Psychiatric: Denies depression or anxiety Physical Exam Physical Exam General: Alert and oriented X3, in no acute distress HEENT: Atraumatic, Pupils equal, round. Mucous membranes moist. Cardiac: Heart rate 110-120. Normal carotid pulses. Lungs: CTA, non-labored respirations. Respirations >20. Abdomen: Soft, obese, nontender, nondistended, no palpable masses. RLQ scar. Extremities: 2+ palpable bilateral radial, femoral pulses. 2+ palpable right dorsalis pedis and 1+ posterior tibial pulse. Left hand-held Doppler with biphasic dorsalis pedis and posterior tibial pulses. Moderate to severe swelling in the left calf and foot. Calves are soft. Musculoskeletal: Moving all extremities. Left arm with mild contracture. Skin: Left foot with skin necrosis involving all toes and large area plantar surface first metatarsal. Purulent drainage that is malodorous from webspaces of 1,2nd and 3rd, 4th toes. Erythema that extends into forefoot. Bullae on medial calf draining purulent drainage with fluctuance that does not extend pass bullae. Neurological: Motor and sensation intact. 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 Speech clear, no facial asymmetry. Psychiatry: No depression or anxiety Vitals VITALS Vital Signs Date Time Temp Pulse Resp B/P (MAP) Pulse Ox O2 Delivery O2 Flow Rate FiO2 06/01/20 11:37 110 198/82 06/01/20 10:41 97.7 20 100 Room Air 97.7 Labs Labs Laboratory Tests Test 05/31/20 18:25 05/31/20 18:48 05/31/20 20:58 06/01/20 04:00 SARS-CoV-2 Antigen (Rapid) Negative (NEGATIVE) White Blood Count 14.1 x10^3/uL (4.0-11.0) 12.9 x10^3/uL (4.0-11.0) Red Blood Count 3.76 x10^6/uL (4.30-5.70) 3.47 x10^6/uL (4.30-5.70) Hemoglobin 9.4 g/dL (13.0-17.5) 8.7 g/dL (13.0-17.5) Hematocrit 28.2 % (39.0-53.0) 26.0 % (39.0-53.0) Mean Corpuscular Volume 75 fL (79-100) 75 fL (79-100) Mean Corpuscular Hemoglobin 25 pg (25-35) 25 pg (25-35) Mean Corpuscular Hemoglobin Concent 34 g/dL (31-37) 33 g/dL (31-37) Red Cell Distribution Width 18.8 % (11.5-14.5) 18.8 % (11.5-14.5) Platelet Count 361 x10^3/uL (140-400) 361 x10^3/uL (140-400) Neutrophils (%) (Auto) 80 % (31-73) 75 % (31-73) Lymphocytes (%) (Auto) 11 % (24-48) 14 % (24-48) Monocytes (%) (Auto) 9 % (0-9) 10 % (0-9) Eosinophils (%) (Auto) 0 % (0-3) 0 % (0-3) Basophils (%) (Auto) 0 % (0-3) 1 % (0-3) Neutrophils # (Auto) 11.2 x10^3/uL (1.8-7.7) 9.7 x10^3/uL (1.8-7.7) Lymphocytes # (Auto) 1.5 x10^3/uL (1.0-4.8) 1.8 x10^3/uL (1.0-4.8) Monocytes # (Auto) 1.3 x10^3/uL (0.0-1.1) 1.3 x10^3/uL (0.0-1.1) Eosinophils # (Auto) 0.1 x10^3/uL (0.0-0.7) 0.0 x10^3/uL (0.0-0.7) Basophils # (Auto) 0.1 x10^3/uL (0.0-0.2) 0.1 x10^3/uL (0.0-0.2) Prothrombin Time 15.7 SEC (11.7-14.0) Prothromb Time International Ratio 1.3 (0.8-1.1) Activated Partial Thromboplast Time 37 SEC (24-38) Sodium Level 134 mmol/L (136-145) 135 mmol/L (136-145) Potassium Level 3.9 mmol/L (3.5-5.1) 3.6 mmol/L (3.5-5.1) Chloride Level 96 mmol/L (98-107) 100 mmol/L (98-107) Carbon Dioxide Level 28 mmol/L (21-32) 26 mmol/L (21-32) Anion Gap 10 (6-14) 9 (6-14) Blood Urea Nitrogen 20 mg/dL (8-26) 19 mg/dL (8-26) Creatinine 1.5 mg/dL (0.7-1.3) 1.4 mg/dL (0.7-1.3) Estimated GFR (Cockcroft-Gault) 58.4 63.2 BUN/Creatinine Ratio 13 (6-20) 14 (6-20) Glucose Level 149 mg/dL (70-99) 181 mg/dL (70-99) Lactic Acid Level 0.9 mmol/L (0.4-2.0) Calcium Level 8.6 mg/dL (8.5-10.1) 7.8 mg/dL (8.5-10.1) Total Bilirubin 1.8 mg/dL (0.2-1.0) 1.7 mg/dL (0.2-1.0) Aspartate Amino Transf (AST/SGOT) 31 U/L (15-37) 28 U/L (15-37) Alanine Aminotransferase (ALT/SGPT) 31 U/L (16-63) 26 U/L (16-63) Alkaline Phosphatase 225 U/L (46-116) 202 U/L (46-116) Total Protein 8.1 g/dL (6.4-8.2) 7.1 g/dL (6.4-8.2) Albumin 1.7 g/dL (3.4-5.0) 1.4 g/dL (3.4-5.0) Albumin/Globulin Ratio 0.3 (1.0-1.7) 0.2 (1.0-1.7) Procalcitonin 3.40 ng/mL (0.00-0.10) Urine Collection Type Unknown Urine Color [place] Urine Clarity Clear Urine pH 5.5 (<5.0-8.0) Urine Specific [place] 1.015 (1.000-1.030) Urine Protein 30 mg/dL (NEG-TRACE) Urine Glucose (UA) Negative mg/dL (NEG) Urine Ketones (Stick) Trace mg/dL (NEG) Urine Blood Negative (NEG) Urine Nitrite Negative (NEG) Urine Bilirubin Moderate (NEG) Urine Urobilinogen Dipstick 4.0 mg/dL (0.2 mg/dL) Urine Leukocyte Esterase Trace (NEG) Urine RBC Occ /HPF (0-2) Urine WBC 5-10 /HPF (0-4) Urine Squamous Epithelial Cells Few /LPF Urine Bacteria 0 /HPF (0-FEW) Urine Cellular Casts Few /HPF Urine Hyaline Casts Few /HPF Urine Granular Casts Few /HPF Test 06/01/20 08:08 06/01/20 11:36 Glucose (Fingerstick) 172 mg/dL (70-99) 146 mg/dL (70-99) Laboratory Tests Test 05/31/20 18:25 05/31/20 18:48 05/31/20 20:58 06/01/20 04:00 SARS-CoV-2 Antigen (Rapid) Negative (NEGATIVE) White Blood Count 14.1 x10^3/uL (4.0-11.0) 12.9 x10^3/uL (4.0-11.0) Red Blood Count 3.76 x10^6/uL (4.30-5.70) 3.47 x10^6/uL (4.30-5.70) Hemoglobin 9.4 g/dL (13.0-17.5) 8.7 g/dL (13.0-17.5) Hematocrit 28.2 % (39.0-53.0) 26.0 % (39.0-53.0) Mean Corpuscular Volume 75 fL (79-100) 75 fL (79-100) Mean Corpuscular Hemoglobin 25 pg (25-35) 25 pg (25-35) Mean Corpuscular Hemoglobin Concent 34 g/dL (31-37) 33 g/dL (31-37) Red Cell Distribution Width 18.8 % (11.5-14.5) 18.8 % (11.5-14.5) Platelet Count 361 x10^3/uL (140-400) 361 x10^3/uL (140-400) Neutrophils (%) (Auto) 80 % (31-73) 75 % (31-73) Lymphocytes (%) (Auto) 11 % (24-48) 14 % (24-48) Monocytes (%) (Auto) 9 % (0-9) 10 % (0-9) Eosinophils (%) (Auto) 0 % (0-3) 0 % (0-3) Basophils (%) (Auto) 0 % (0-3) 1 % (0-3) Neutrophils # (Auto) 11.2 x10^3/uL (1.8-7.7) 9.7 x10^3/uL (1.8-7.7) Lymphocytes # (Auto) 1.5 x10^3/uL (1.0-4.8) 1.8 x10^3/uL (1.0-4.8) Monocytes # (Auto) 1.3 x10^3/uL (0.0-1.1) 1.3 x10^3/uL (0.0-1.1) Eosinophils # (Auto) 0.1 x10^3/uL (0.0-0.7) 0.0 x10^3/uL (0.0-0.7) Basophils # (Auto) 0.1 x10^3/uL (0.0-0.2) 0.1 x10^3/uL (0.0-0.2) Prothrombin Time 15.7 SEC (11.7-14.0) Prothromb Time International Ratio 1.3 (0.8-1.1) Activated Partial Thromboplast Time 37 SEC (24-38) Sodium Level 134 mmol/L (136-145) 135 mmol/L (136-145) Potassium Level 3.9 mmol/L (3.5-5.1) 3.6 mmol/L (3.5-5.1) Chloride Level 96 mmol/L (98-107) 100 mmol/L (98-107) Carbon Dioxide Level 28 mmol/L (21-32) 26 mmol/L (21-32) Anion Gap 10 (6-14) 9 (6-14) Blood Urea Nitrogen 20 mg/dL (8-26) 19 mg/dL (8-26) Creatinine 1.5 mg/dL (0.7-1.3) 1.4 mg/dL (0.7-1.3) Estimated GFR (Cockcroft-Gault) 58.4 63.2 BUN/Creatinine Ratio 13 (6-20) 14 (6-20) Glucose Level 149 mg/dL (70-99) 181 mg/dL (70-99) Lactic Acid Level 0.9 mmol/L (0.4-2.0) Calcium Level 8.6 mg/dL (8.5-10.1) 7.8 mg/dL (8.5-10.1) Total Bilirubin 1.8 mg/dL (0.2-1.0) 1.7 mg/dL (0.2-1.0) Aspartate Amino Transf (AST/SGOT) 31 U/L (15-37) 28 U/L (15-37) Alanine Aminotransferase (ALT/SGPT) 31 U/L (16-63) 26 U/L (16-63) Alkaline Phosphatase 225 U/L (46-116) 202 U/L (46-116) Total Protein 8.1 g/dL (6.4-8.2) 7.1 g/dL (6.4-8.2) Albumin 1.7 g/dL (3.4-5.0) 1.4 g/dL (3.4-5.0) Albumin/Globulin Ratio 0.3 (1.0-1.7) 0.2 (1.0-1.7) Procalcitonin 3.40 ng/mL (0.00-0.10) Urine Collection Type Unknown Urine Color [place] Urine Clarity Clear Urine pH 5.5 (<5.0-8.0) Urine Specific [place] 1.015 (1.000-1.030) Urine Protein 30 mg/dL (NEG-TRACE) Urine Glucose (UA) Negative mg/dL (NEG) Urine Ketones (Stick) Trace mg/dL (NEG) Urine Blood Negative (NEG) Urine Nitrite Negative (NEG) Urine Bilirubin Moderate (NEG) Urine Urobilinogen Dipstick 4.0 mg/dL (0.2 mg/dL) Urine Leukocyte Esterase Trace (NEG) Urine RBC Occ /HPF (0-2) Urine WBC 5-10 /HPF (0-4) Urine Squamous Epithelial Cells Few /LPF Urine Bacteria 0 /HPF (0-FEW) Urine Cellular Casts Few /HPF Urine Hyaline Casts Few /HPF Urine Granular Casts Few /HPF Test 06/01/20 08:08 06/01/20 11:36 Glucose (Fingerstick) 172 mg/dL (70-99) 146 mg/dL (70-99) Images Images Reviewed Arterial US Left: Common femoral artery peak systolic velocity measures 182 cm/s. Profunda femoris artery peak systolic velocity measures 121 cm/s. Proximal superficial femoral artery peak systolic velocity measures 271 cm/s. Mid superficial femoral artery peak systolic velocity measures 149 cm/s. Distal superficial femoral artery peak systolic velocity measures 157 cm/s. Popliteal artery peak systolic velocity measures 186 cm/s. Posterior tibial artery peak systolic velocity measures 161 cm/s. Dorsalis pedis artery peak systolic velocity measures 96 cm/s. Monophasic waveforms in the posterior tibial artery and dorsalis pedis artery, consistent with a more proximal stenosis. Impression: Areas of elevated peak systolic velocity in the left lower extremity arterial vasculature consistent with stenosis, most pronounced in the superficial femoral artery proximally. Venous Ultrasound Findings: Occlusive thrombus in both posterior tibial veins. Occlusive thrombus in the left greater saphenous vein at the level of the mid thigh down through the ankle. Impression: 1. Positive for DVT in the left lower extremity. 2. Superficial thrombophlebitis involving the greater saphenous vein from the mid thigh to the ankle. Xray Findings: Gas along the plantar aspect of the first digit. First digit soft tissue swelling. Normal alignment. No fracture. No radiographic evidence of osteomyelitis. Mild first MTP DJD. Plantar calcaneal spur. Mild ankle DJD. Dorsal foot soft tissue swelling. Impression: 1. Focus of gas along the plantar aspect of the first digit, may relate to known wound or subcutaneous gas related to gas-forming organisms. Recommend further clinical evaluation and short-term follow-up. 2. No radiographic evidence of osteomyelitis. If persistent clinical concern, MRI can further evaluate. 3. Diffuse dorsal foot soft tissue swelling. Assessment/Plan Assessment/Plan 55-year-old male with diabetic foot wound with gangrenous skin changes and purulent drainage. Possible sepsis with positive blood cultures, tachycardia, fever,and leukocytosis. Recommend urgent foot debridement with possible transmetatarsal amputation versus a more proximal leg amputation. Tentatively we have scheduled him for this afternoon. I have discussed at length with the patient and his the plan and options for care. He expresses understanding and is agreeable to the procedure. Arterial US was reviewed there is some elevated velocity in SFA, although he does have biphasic doppler signal by handheld doppler in his DP and PT arteries in the foot. Hopefully this is adequate to heal an amputation. We could potentially proceed with additional arterial intervention in the future if needed. Agree with infectious disease consultation and intravenous antibiotics. Continue local wound care. Will discuss plan of care with the vascular surgeon and make additional recommendations as needed. CLEVE VASQUEZ APRN Jun 01, 2020 13:54
--- NOTE | 2020-06-01 14:07 | PDOC ---
[facility] PROGRESS NOTE Date of Service DOS: DATE: 06/01/20 TIME: 14:00 Chief Complaint Chief Complaint Assessment/Plan Sepsis Left foot diabetic infection with gangrenous changes. Peripheral vascular disease Left lower extremity DVT KAYCEE due to vasomotor nephropathy History of diabetes mellitus type 2 Hypertensive urgency Anemia of chronic inflammation Elevated alkaline phosphatase Severe protein malnutrition Continue empiric IV antibiotics Pending blood and wound cultures Pending OR with vascular surgery Wound care consult PT OT Lovenox for DVT prophylaxis ADA diet Full code Discussed with RN and SW Disposition pending surgical debridement Surrogate decision maker is the History of Present Illness History of Present Illness 06/01/2020 No acute events overnight. Pain is well controlled. T-max of 100.2 this morning. Patient has no concerns at this time. No concerns from nursing. Patient's chart, labs, images were reviewed and discussed with RN 55-year-old male who has peripheral vascular disease. He has had diabetes for many years. He has never had any surgeries on his legs, but the left lower extremity he has got a severe diabetic wound. Vitals/I&O Vitals/I&O: Vital Signs Date Time Temp Pulse Resp B/P (MAP) Pulse Ox O2 Delivery O2 Flow Rate FiO2 06/01/20 12:50 190/94 (126) 06/01/20 11:37 110 06/01/20 10:41 97.7 20 100 Room Air 97.7 I & O 05/31/20 05/31/20 06/01/20 15:00 23:00 07:00 Intake Total 0 ml 200 ml Balance 0 ml 200 ml Physical Exam General: Alert, Oriented X3, Cooperative Extremities: Other (Gain gangrenous changes of the left lower foot with malodor) Labs Labs: Laboratory Tests Test 05/31/20 18:25 05/31/20 18:48 05/31/20 20:58 06/01/20 04:00 SARS-CoV-2 Antigen (Rapid) Negative (NEGATIVE) White Blood Count 14.1 x10^3/uL (4.0-11.0) 12.9 x10^3/uL (4.0-11.0) Red Blood Count 3.76 x10^6/uL (4.30-5.70) 3.47 x10^6/uL (4.30-5.70) Hemoglobin 9.4 g/dL (13.0-17.5) 8.7 g/dL (13.0-17.5) Hematocrit 28.2 % (39.0-53.0) 26.0 % (39.0-53.0) Mean Corpuscular Volume 75 fL (79-100) 75 fL (79-100) Mean Corpuscular Hemoglobin 25 pg (25-35) 25 pg (25-35) Mean Corpuscular Hemoglobin Concent 34 g/dL (31-37) 33 g/dL (31-37) Red Cell Distribution Width 18.8 % (11.5-14.5) 18.8 % (11.5-14.5) Platelet Count 361 x10^3/uL (140-400) 361 x10^3/uL (140-400) Neutrophils (%) (Auto) 80 % (31-73) 75 % (31-73) Lymphocytes (%) (Auto) 11 % (24-48) 14 % (24-48) Monocytes (%) (Auto) 9 % (0-9) 10 % (0-9) Eosinophils (%) (Auto) 0 % (0-3) 0 % (0-3) Basophils (%) (Auto) 0 % (0-3) 1 % (0-3) Neutrophils # (Auto) 11.2 x10^3/uL (1.8-7.7) 9.7 x10^3/uL (1.8-7.7) Lymphocytes # (Auto) 1.5 x10^3/uL (1.0-4.8) 1.8 x10^3/uL (1.0-4.8) Monocytes # (Auto) 1.3 x10^3/uL (0.0-1.1) 1.3 x10^3/uL (0.0-1.1) Eosinophils # (Auto) 0.1 x10^3/uL (0.0-0.7) 0.0 x10^3/uL (0.0-0.7) Basophils # (Auto) 0.1 x10^3/uL (0.0-0.2) 0.1 x10^3/uL (0.0-0.2) Prothrombin Time 15.7 SEC (11.7-14.0) Prothromb Time International Ratio 1.3 (0.8-1.1) Activated Partial Thromboplast Time 37 SEC (24-38) Sodium Level 134 mmol/L (136-145) 135 mmol/L (136-145) Potassium Level 3.9 mmol/L (3.5-5.1) 3.6 mmol/L (3.5-5.1) Chloride Level 96 mmol/L (98-107) 100 mmol/L (98-107) Carbon Dioxide Level 28 mmol/L (21-32) 26 mmol/L (21-32) Anion Gap 10 (6-14) 9 (6-14) Blood Urea Nitrogen 20 mg/dL (8-26) 19 mg/dL (8-26) Creatinine 1.5 mg/dL (0.7-1.3) 1.4 mg/dL (0.7-1.3) Estimated GFR (Cockcroft-Gault) 58.4 63.2 BUN/Creatinine Ratio 13 (6-20) 14 (6-20) Glucose Level 149 mg/dL (70-99) 181 mg/dL (70-99) Lactic Acid Level 0.9 mmol/L (0.4-2.0) Calcium Level 8.6 mg/dL (8.5-10.1) 7.8 mg/dL (8.5-10.1) Total Bilirubin 1.8 mg/dL (0.2-1.0) 1.7 mg/dL (0.2-1.0) Aspartate Amino Transf (AST/SGOT) 31 U/L (15-37) 28 U/L (15-37) Alanine Aminotransferase (ALT/SGPT) 31 U/L (16-63) 26 U/L (16-63) Alkaline Phosphatase 225 U/L (46-116) 202 U/L (46-116) Total Protein 8.1 g/dL (6.4-8.2) 7.1 g/dL (6.4-8.2) Albumin 1.7 g/dL (3.4-5.0) 1.4 g/dL (3.4-5.0) Albumin/Globulin Ratio 0.3 (1.0-1.7) 0.2 (1.0-1.7) Procalcitonin 3.40 ng/mL (0.00-0.10) Urine Collection Type Unknown Urine Color Zeina Urine Clarity Clear Urine pH 5.5 (<5.0-8.0) Urine Specific [place] 1.015 (1.000-1.030) Urine Protein 30 mg/dL (NEG-TRACE) Urine Glucose (UA) Negative mg/dL (NEG) Urine Ketones (Stick) Trace mg/dL (NEG) Urine Blood Negative (NEG) Urine Nitrite Negative (NEG) Urine Bilirubin Moderate (NEG) Urine Urobilinogen Dipstick 4.0 mg/dL (0.2 mg/dL) Urine Leukocyte Esterase Trace (NEG) Urine RBC Occ /HPF (0-2) Urine WBC 5-10 /HPF (0-4) Urine Squamous Epithelial Cells Few /LPF Urine Bacteria 0 /HPF (0-FEW) Urine Cellular Casts Few /HPF Urine Hyaline Casts Few /HPF Urine Granular Casts Few /HPF Test 06/01/20 08:08 06/01/20 11:36 Glucose (Fingerstick) 172 mg/dL (70-99) 146 mg/dL (70-99) Assessment and Plan Assessmemt and Plan Problems Medical Problems: (1) Acute on chronic renal failure Status: Acute (2) Anemia Status: Acute (3) Diabetic foot ulcer Status: Acute Comment Review of Relevant I have reviewed the following items deepa (where applicable) has been applied. Medications: Current Medications Medications (Trade) Dose Ordered Sig/Beverly Route PRN Reason Start Time Stop Time Status Last Admin Dose Admin Sodium Chloride 1,000 ml @ 2,550 mls/hr Q24M IV 05/31/20 18:30 05/31/20 19:30 DC 05/31/20 22:09 Piperacillin Sod/ Tazobactam Sod 3.375 gm/Sodium Chloride 50 ml @ 100 mls/hr 1X ONCE IV 05/31/20 18:30 05/31/20 18:59 DC 05/31/20 19:18 Vancomycin HCl (Vanco Per Pharmacy) 1 each PRN DAILY PRN MC SEE COMMENTS 05/31/20 18:15 06/01/20 11:22 Vancomycin HCl 2 gm/Sodium Chloride 500 ml @ 250 mls/hr 1X ONCE IV 05/31/20 19:00 05/31/20 20:59 DC 05/31/20 20:06 Vancomycin HCl 1.25 gm/Sodium Chloride 250 ml @ 167 mls/hr Q12H IV 06/01/20 08:00 06/01/20 08:10 Sodium Chloride 1,000 ml @ 125 mls/hr 1X ONCE IV 05/31/20 20:30 06/01/20 04:29 DC 05/31/20 22:09 Piperacillin Sod/ Tazobactam Sod 3.375 gm/Sodium Chloride 50 ml @ 100 mls/hr Q6HRS IV 06/01/20 09:00 06/01/20 13:09 Labetalol HCl (Normodyne Iv Push) 10 mg PRN Q2HR PRN IVP HYPERTENSION 06/01/20 10:30 06/01/20 11:37 Justifications for Admission Other Justification TRACY CHOI MD Jun 01, 2020 14:07
[2020-06-01] MEDS ORDERED: LIDOCAINE 2% PF 5 ML VIAL. ONE (14:37)
[2020-06-01] MEDS ORDERED: PROPOFOL 10 MG/ML (20ML) VIAL. IV ONE (14:37)
[2020-06-01] MEDS ORDERED: fentaNYL PF VIAL 100 MCG/2 ML VIAL ONE (14:37)
[2020-06-01] MEDS: NORMAL SALINE IV SCH (14:38)
[2020-06-01] MEDS: DAPTOMYCIN IV SCH (14:38)
[2020-06-01] MEDS ORDERED: BACITRACIN 50,000 UNIT in IV NORMAL SALINE 500ML BAG 500 ML IRR ONE (16:00)
[2020-06-01] MEDS ORDERED: ceFAZolin SODIUM IV Push 1 GM VIAL. IVP ONE (17:19)
[2020-06-01] MEDS ORDERED: DEXAMETHASONE SOD PHOS 4 MG/ML VIAL ONE (17:29)
[2020-06-01] MEDS ORDERED: ONDANSETRON PF 4 MG/2 ML VIAL. ONE (17:29)
--- NOTE | 2020-06-01 18:13 | PDOC ---
BRIEF OPERATIVE NOTE Date: Jun 01, 2020 Pre-Op Diagnosis Left leg gangrene Post-Op Diagnosis Same Procedure Performed Left guillotine Transmetatarsal Amputation Surgeon Christy Moise DO, FACS Anesthesia Type: General Blood Loss 100mL Specimens Obtained Left foot and wound culture Complications None Operative Note Full note dictated CHRISTY MOISE DO Jun 01, 2020 18:13
--- NOTE | 2020-06-01 18:40 | OP ---
DATE OF SURGERY: 06/01/2020 VASCULAR SURGERY OPERATIVE NOTE ATTENDING SURGEON: Christy Moise DO PREOPERATIVE DIAGNOSIS: 1. 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 2. Diabetes mellitus. POSTOPERATIVE DIAGNOSES: 1. 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 2. Diabetes mellitus. PROCEDURE: 1. Left transmetatarsal guillotine amputation. 2. Sharp excisional debridement of the left lower leg. ANESTHESIA: General. SPECIMENS: 1. Left forefoot containing first through fifth toes. 2. Wound culture. ANESTHESIA: General. ESTIMATED BLOOD LOSS: 100 mL. COMPLICATIONS: None. PREOPERATIVE INDICATIONS: The patient is a very pleasant 55-year-old diabetic male who developed worsening left foot gangrene involving all of his toes on the left foot. The patient had evidence of purulent infection also on the lower portion of the leg with purulent drainage. The patient was consented for operative therapy including possible transmetatarsal amputation and possible below-knee amputation. He understood all risks, benefits and alternatives of the procedure prior to proceeding. OPERATIVE PROCEDURE: The patient was brought to the operating suite and placed in the supine position. After establishing appropriate anesthesia, the left foot was prepped and draped in a sterile fashion. Next, a timeout procedure was performed. It was confirmed that the correct operative site was marked and draped, and the patient received appropriate perioperative antibiotics. Following this, a transmetatarsal amputation incision was made at the base of the foot and the toes were disarticulated from the metatarsal heads. Fortunately, there was no evidence of deep space infection within the mid foot and no evidence of tracking along the tendon sheaths. A sharp dissection was performed along the metatarsal bones with the first through fifth metatarsal bones. Next, a bone saw was used to divide the metatarsal bones at the mid foot. Next, Bovie electrocautery was used to obtain hemostasis. Following adequate hemostasis, the wound was copiously irrigated with antibiotic-impregnated solution. At this point in time, the wound on the lower lateral portion of his leg was opened and there was certainly purulent drainage from this location as well. Wound cultures were obtained from the foot and from this area and sent for culture. Next, the two areas of draining purulence were connected into one single wound down to healthy tissue. There was no tracking of purulence cephalad or caudad. This wound was also irrigated with antibiotic-impregnated solution. Next, after correct lap, sponge, needle and instrument count, nonadherent dressings were placed followed by sterile dressings, followed by a compressive wrap. The patient tolerated the procedure well and was transferred to the postanesthesia care unit in stable condition. CHRISTY MOISE DO DR: ZAHIRA/camren JOB#: [id number] / [id number]
--- NOTE | 2020-06-01 20:42 | CONS ---
DATE OF CONSULTATION: 06/01/2020 ORTHOPEDIC CONSULTATION REASON FOR CONSULTATION: Left foot wound and vascular disease. HISTORY OF PRESENT ILLNESS: The patient is a 55-year-old male who noticed that he started to have problems with his left foot about 2 weeks ago when he had noticed skin peeling off of his left foot around his great toe primarily. It has worsened over this period of time and indicates increased pain with activity in the left foot and due to the worsening in his left foot, went to his primary care doctor and was admitted to the hospital for progression of his foot wound as he had smelling drainage from the foot as well and clear necrosis of his great toe as well as some of the lesser toes. 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 PAST SURGICAL HISTORY: Appendectomy. SOCIAL HISTORY: Denies smoking, alcohol or drug use. ALLERGIES: He has no known drug allergies. MEDICATIONS: List is reviewed. REVIEW OF SYSTEMS: Significant for the worsening foot problems with drainage, otherwise denies any fever or chills. PHYSICAL EXAMINATION: GENERAL: Pleasant, cooperative 55-year-old male, in no acute distress. VITAL SIGNS: He has a T-max since his admission of 100.2. EXTREMITIES: Examination of the left lower extremity, he has necrosis of his toes and the distal aspect of his foot. He has normal examination of the contralateral foot. On the left side, he has purulent foul-smelling drainage and has some scabs over the lower extremities, particularly the leg and calf areas, but no evidence of redness or erythema. Likewise does not appear to have spreading proximal infection as the necrosis and redness over the distal aspect of the left foot only. LABORATORY DATA: White count is 12.9. DIAGNOSTIC DATA: X-rays of the foot showed some gas along the plantar aspect of the first digit. There is no evidence of osteomyelitis. Vascular ultrasound showed DVT in the left lower extremity and some proximal occlusion. IMPRESSION: Left diabetic foot ulcer. No signs of neuropathy. I suspect gas formation is adjacent to the known foot wound, but he clearly has gangrene of the toes and forefoot. TREATMENT PLAN: I went over with him that I would recommended a Vascular Surgery evaluation as he appears to have some proximal stenosis and occlusion that may warrant consideration for revascularization along with definitive treatment of his gangrene of his toes and foot. I would expect they would perform either both procedures as indicated at the same time, but I would be happy to assist from an orthopedic standpoint as necessary. MATTIE GABRIEL MD DR: MIGUE/carmen JOB#: [id number] / [id number]
[2020-06-02] MEDS: LABETALOL 20 MG/4 ML DISP.SYRIN. IVP PRN (00:03)
[2020-06-02 03:00] VITALS: BP 169/79
[2020-06-02] MEDS: PIPERACILLIN/TAZOBACTAM 3.375 GM in IV NORMAL SALINE 50ML 50 ML IV SCH ×3 (05:59→17:10)
--- NOTE | 2020-06-02 06:42 | PDOC ---
Infectious Disease Note Subjective Subjective Comfortable. NO pain/F/C/S/N/V/D/SOA/rash ROS ROS o/w neg Vital Sign Vital Signs Vital Signs Date Time Temp Pulse Resp B/P (MAP) Pulse Ox O2 Delivery O2 Flow Rate FiO2 06/02/20 03:00 98.6 67 18 169/79 (109) 98 Room Air 98.6 06/01/20 18:23 8 Physical Exam PHYSICAL EXAM GENERAL: Alert, oriented gentleman, not in distress. HEENT: Both pupils are round and reacting. No conjunctival lesion. No lesion in the mouth. NECK: Supple, no JVP, no lymphadenopathy. LUNGS: Clear. HEART: S1, S2 regular. ABDOMEN: Soft, nontender, no organomegaly. EXTREMITIES: The right lower extremity does have some superficial skin breakdowns and scabs present. Left lower extremity - dressed NEUROLOGIC: The patient is alert, awake and appropriate. No focal neurologic deficit. SKIN: No rash Labs Lab Laboratory Tests Test 06/01/20 08:08 06/01/20 11:36 06/01/20 14:14 06/01/20 18:21 Glucose (Fingerstick) 172 mg/dL (70-99) 146 mg/dL (70-99) 147 mg/dL (70-99) 155 mg/dL (70-99) Test 06/01/20 20:08 Glucose (Fingerstick) 150 mg/dL (70-99) Micro GRAM NEGATIVE RODS:MANY GRAM POSITIVE COCCI:FEW SQUAMOUS EPI CELL:NONE SEEN PMN (WBCs):NONE SEEN Microbiology 05/31/20 Blood Culture - Final, Complete 05/31/20 Gram Stain - Final, Resulted 05/31/20 Aerobic Culture, Resulted Pending Objective Assessment 4/4 GPC Bacteremia 05/31 1. Left foot diabetic infection with gangrenous changes- S/p Left transmetatarsal guillotine amputation. Sharp excisional debridement of the left lower leg. 06/01 2. Peripheral arterial disease. 3. Gas in the x-ray probably from the wound as the patient does not look systemically sick, having gas forming organism infection. 4. Diabetes. 5. Hypertension. 6. Renal insufficiency. Plan Plan of Care S/p Dexamethasone 06/01 Continue Daptomycin and Zosyn. F/u labs and cults JAREN WILLARD MD Jun 02, 2020 06:42
[2020-06-02 07:00] VITALS: BP 184/88
[2020-06-02] MEDS: MORPHINE SULFATE 2 MG/ML VIAL. IV PRN (10:21)
[2020-06-02 11:00] VITALS: BP 181/82
[2020-06-02] MEDS ORDERED: DEXTROSE 50% 25 GM / 50ML DISP.SYRIN. IV PRN (12:00)
[2020-06-02] MEDS: TAMSULOSIN 0.4 MG CAP.ER.24H. PO SCH (12:27)
[2020-06-02] MEDS: INSULIN LISPRO 300 UNITS/3 ML VIAL. SQ SCH ×3 (12:29→22:00)
[2020-06-02] MEDS: DAPTOMYCIN IV SCH (14:37)
[2020-06-02] MEDS: NORMAL SALINE IV SCH (14:37)
[2020-06-02 15:00] VITALS: BP 167/84
--- NOTE | 2020-06-02 17:03 | PDOC ---
GENERAL General: Patient examined chart reviewed today's hospital day 3 for this patient with ga ngrenous left foot ulcer status post transmetatarsal amputation of that foot yesterday. He is resting comfortably in bed has no new complaints for me this afternoon. We appreciate subspecialty support. Problems: (1) Type 2 diabetes mellitus (2) S/P transmetatarsal amputation of foot (3) Diabetic foot ulcer (4) Acute on chronic renal failure VITAL SIGNS Vital Signs/I&O: Vital Signs Date Time Temp Pulse Resp B/P (MAP) Pulse Ox O2 Delivery O2 Flow Rate FiO2 06/02/20 11:00 99.7 80 17 181/82 (115) 99 Room Air 99.7 06/01/20 18:23 8 I & O 06/01/20 06/01/20 06/02/20 15:00 23:00 07:00 Intake Total 300 ml 1300 ml 900 ml Output Total 525 ml 150 ml Balance 300 ml 775 ml 750 ml In general the patient is pleasant at baseline orientation in no acute distress HEENT exam is unremarkable Chest bilateral equal air entry though diminished throughout no crackles or wheezes are noted Heart S1-S2 normal regular rate and rhythm no murmurs or gallops are noted Abdomen soft nontender nondistended no masses organomegaly noted Extremity exam is notable for marked excoriations over right lower extremity pulses are intact no edema noted. Left lower extremity dressings are dry clean and intact ALLERGIES Allergies: Allergies Coded Allergies Type Severity Reaction Last Updated Verified No Known Drug Allergies 03/04/13 No MEDS Medications: Current Medications Medications (Trade) Dose Ordered Sig/Beverly Start Time Stop Time Status Last Admin Dose Admin Acetaminophen (Tylenol) 650 mg PRN Q4HRS PRN 05/31/20 20:30 06/01/20 20:29 DC Acetaminophen/ Hydrocodone Bitart (Lortab 5/325) 1 tab PRN Q6HRS PRN 06/01/20 23:00 Amlodipine Besylate (Norvasc) 5 mg HS 06/02/20 21:00 Atorvastatin Calcium (Lipitor) 80 mg HS 06/02/20 21:00 Bacitracin 79152 unit/Sodium Chloride 500 ml @ 500 mls/hr 1X ONCE 06/01/20 16:00 06/01/20 16:59 DC 06/01/20 17:37 Carvedilol (Coreg) 25 mg BIDWMEALS 06/02/20 17:00 Cefazolin Sodium (Ancef) 1 gm STK-MED ONCE 06/01/20 17:19 06/01/20 17:20 DC Cefazolin Sodium/ Dextrose 50 ml @ 100 mls/hr 1X ONCE 06/01/20 18:30 06/01/20 18:59 DC 06/01/20 17:28 Daptomycin 610 mg/ Sodium Chloride 50 ml @ 100 mls/hr Q24H 06/01/20 15:00 06/02/20 14:37 Dexamethasone Sodium Phosphate (Decadron) 4 mg STK-MED ONCE 06/01/20 17:29 06/01/20 17:29 DC Dextrose (Dextrose 50%-Water Syringe) 12.5 gm PRN Q15MIN PRN 06/02/20 12:00 Diphtheria/ Tetanus/Acell Pertussis (ADACEL TDap SYRINGE) 0.5 ml ONCE ONCE 05/31/20 22:00 05/31/20 22:01 DC Fentanyl Citrate (Fentanyl 2ml Vial) 100 mcg STK-MED ONCE 06/01/20 14:37 06/01/20 14:37 DC Hydromorphone HCl (Dilaudid) 0.5 mg PRN Q10MIN PRN 06/01/20 12:45 06/02/20 12:44 DC Insulin Human Lispro (HumaLOG VIAL for OP,RR ONLY) 0-10 units PRN Q1HR PRN 06/01/20 12:45 06/02/20 12:44 DC Insulin Human Lispro (HumaLOG) 0-7 UNITS TIDWMEALS 06/02/20 12:00 06/02/20 12:29 Labetalol HCl (Normodyne Iv Push) 10 mg PRN Q2HR PRN 06/01/20 10:30 06/02/20 00:03 Lidocaine HCl (Lidocaine Pf 2% Vial) 5 ml STK-MED ONCE 06/01/20 14:37 06/01/20 14:37 DC Morphine Sulfate (Morphine Sulfate) 2 mg PRN Q2HR PRN 06/01/20 23:00 06/02/20 10:21 Ondansetron HCl (Zofran) 4 mg STK-MED ONCE 06/01/20 17:29 06/01/20 17:29 DC Piperacillin Sod/ Tazobactam Sod 3.375 gm/Sodium Chloride 50 ml @ 100 mls/hr Q6HRS 06/01/20 09:00 06/02/20 11:57 Prochlorperazine Edisylate (Compazine) 5 mg PACU PRN PRN 06/01/20 12:45 06/02/20 12:44 DC Propofol (Diprivan) 200 mg STK-MED ONCE 06/01/20 14:37 06/01/20 14:37 DC Ringer's Solution 1,000 ml @ 30 mls/hr Q24H 06/01/20 12:45 06/02/20 00:44 DC Sertraline HCl (Zoloft) 100 mg HS 06/02/20 21:00 Sodium Chloride 1,000 ml @ 125 mls/hr 1X ONCE 05/31/20 20:30 06/01/20 04:29 DC 05/31/20 22:09 Tamsulosin HCl (Flomax) 0.4 mg DAILY 06/02/20 12:00 06/02/20 12:27 Vancomycin HCl (Vanco Per Pharmacy) 1 each PRN DAILY PRN 05/31/20 18:15 06/01/20 14:07 DC 06/01/20 11:22 Vancomycin HCl (Vancomycin Trough Level) 1 each 1X ONCE 06/02/20 07:30 06/01/20 14:04 DC Vancomycin HCl 1.25 gm/Sodium Chloride 250 ml @ 167 mls/hr Q12H 06/01/20 08:00 06/01/20 14:03 DC 06/01/20 08:10 Vancomycin HCl 2 gm/Sodium Chloride 500 ml @ 250 mls/hr 1X ONCE 05/31/20 19:00 06/01/20 14:03 DC 05/31/20 20:06 Current Medications Medications (Trade) Dose Ordered Sig/Beverly Route PRN Reason Start Time Stop Time Status Last Admin Dose Admin Cefazolin Sodium/ Dextrose 50 ml @ 100 mls/hr 1X ONCE IV 06/01/20 18:30 06/01/20 18:59 DC 06/01/20 17:28 Morphine Sulfate (Morphine Sulfate) 2 mg PRN Q2HR PRN IV SEVERE PAIN 7-10 06/01/20 23:00 06/02/20 10:21 Tamsulosin HCl (Flomax) 0.4 mg DAILY PO 06/02/20 12:00 06/02/20 12:27 Insulin Human Lispro (HumaLOG) 0-7 UNITS TIDWMEALS SQ 06/02/20 12:00 06/02/20 12:29 LAB Lab: Laboratory Tests Test 06/01/20 18:21 06/01/20 20:08 06/02/20 07:52 06/02/20 11:50 Glucose (Fingerstick) 155 mg/dL (70-99) H 150 mg/dL (70-99) H 236 mg/dL (70-99) H 215 mg/dL (70-99) H ASSESSMENT & PLAN A&P Plan as noted above This note was created using [employer] and may have omissions and/or errors due to the nature of real-time voice polarity tester. Justifications for Admission Other Justification Problem Qualifiers (1) Diabetic foot ulcer: Diabetic foot ulcer location: unspecified part of foot Diabetes mellitus type: type 2 Laterality: left Non-pressure ulcer stage: with necrosis of muscle Qualified Codes: E11.621 - Type 2 diabetes mellitus with foot ulcer; L97.523 - Non-pressure chronic ulcer of other part of left foot with necrosis of muscle (2) Acute on chronic renal failure: Acute renal failure type: unspecified Chronic kidney disease stage: unspecified stage Qualified Codes: N17.9 - Acute kidney failure, unspecified; N18.9 - Chronic kidney disease, unspecified BREA ASKEW MD Jun 02, 2020 17:03
[2020-06-02] MEDS: CARVEDILOL 12.5 MG TABLET. PO SCH (17:10)
[2020-06-02 19:30] VITALS: BP 160/72
[2020-06-02] MEDS: ONDANSETRON PF 4 MG/2 ML VIAL. IVP PRN (20:35)
[2020-06-02] MEDS: ATORVASTATIN CALCIUM 40 MG TABLET. PO SCH (21:30)
[2020-06-02] MEDS: amLODIPine BESYLATE 5 MG TABLET PO SCH (21:30)
[2020-06-02] MEDS: SERTRALINE 50 MG TABLET. PO SCH (21:30)
[2020-06-02 23:21] VITALS: BP 113/65
[2020-06-03] MEDS: ONDANSETRON PF 4 MG/2 ML VIAL. IVP PRN (00:49)
[2020-06-03] MEDS: PIPERACILLIN/TAZOBACTAM 3.375 GM in IV NORMAL SALINE 50ML 50 ML IV SCH ×4 (00:49→17:35)
[2020-06-03 03:32] VITALS: BP 111/72
[2020-06-03 05:02] LABS: BASO # 0.1 x10^3/uL (0.0-0.2); BASO % 1 % (0-3); EOS % 0 % (0-3); HEMATOCRIT 27.8 % (39.0-53.0); HEMOGLOBIN 9.3 g/dL (13.0-17.5); LYMPH # 0.9 x10^3/uL (1.0-4.8); LYMPH % 4 % (24-48); MEAN CORPUSCULAR HEMOGLOBIN 25 pg (25-35); MEAN CORPUSCULAR HGB CONC 34 g/dL (31-37); MEAN CORPUSCULAR VOLUME 75 fL (79-100); MONO # 0.9 x10^3/uL (0.0-1.1); MONO % 4 % (0-9); NEUT # 20.7 x10^3/uL (1.8-7.7); NEUT % 92 % (31-73); PLATELET COUNT 413 x10^3/uL (140-400); RED BLOOD COUNT 3.69 x10^6/uL (4.30-5.70); RED CELL DISTRIBUTION WIDTH 18.3 % (11.5-14.5); WHITE BLOOD COUNT 22.7 x10^3/uL (4.0-11.0)
[2020-06-03 05:36] LABS: ALBUMIN 1.5 g/dL (3.4-5.0); ALBUMIN/GLOBULIN RATIO 0.3 (1.0-1.7); CALCIUM 7.8 mg/dL (8.5-10.1); CREATININE 1.7 mg/dL (0.7-1.3); GFR 50.5; POTASSIUM 5.1 mmol/L (3.5-5.1); TOTAL BILIRUBIN 1.6 mg/dL (0.2-1.0)
[2020-06-03 07:00] VITALS: BP 149/69
--- NOTE | 2020-06-03 07:22 | PDOC ---
Infectious Disease Note Subjective Subjective Comfortable. Some N/V o/w NO pain/F/C/S/D/SOA/rash Vital Sign Vital Signs Vital Signs Date Time Temp Pulse Resp B/P (MAP) Pulse Ox O2 Delivery O2 Flow Rate FiO2 06/03/20 03:32 98.7 82 16 111/72 (85) 93 Room Air 98.7 Physical Exam PHYSICAL EXAM GENERAL: Alert, oriented gentleman, not in distress. HEENT: Both pupils are round and reacting. No conjunctival lesion. No lesion in the mouth. NECK: Supple, no JVP, no lymphadenopathy. LUNGS: Clear. HEART: S1, S2 regular. ABDOMEN: Soft, nontender, no organomegaly. EXTREMITIES: The right lower extremity does have some superficial skin breakdowns and scabs present. Left lower extremity - dressed NEUROLOGIC: The patient is alert, awake and appropriate. No focal neurologic deficit. SKIN: No rash Labs Lab Laboratory Tests Test 06/02/20 07:52 06/02/20 11:50 06/02/20 16:57 06/02/20 21:18 Glucose (Fingerstick) 236 mg/dL (70-99) 215 mg/dL (70-99) 250 mg/dL (70-99) 156 mg/dL (70-99) Test 06/03/20 03:30 White Blood Count 22.7 x10^3/uL (4.0-11.0) Red Blood Count 3.69 x10^6/uL (4.30-5.70) Hemoglobin 9.3 g/dL (13.0-17.5) Hematocrit 27.8 % (39.0-53.0) Mean Corpuscular Volume 75 fL (79-100) Mean Corpuscular Hemoglobin 25 pg (25-35) Mean Corpuscular Hemoglobin Concent 34 g/dL (31-37) Red Cell Distribution Width 18.3 % (11.5-14.5) Platelet Count 413 x10^3/uL (140-400) Neutrophils (%) (Auto) 92 % (31-73) Lymphocytes (%) (Auto) 4 % (24-48) Monocytes (%) (Auto) 4 % (0-9) Eosinophils (%) (Auto) 0 % (0-3) Basophils (%) (Auto) 1 % (0-3) Neutrophils # (Auto) 20.7 x10^3/uL (1.8-7.7) Lymphocytes # (Auto) 0.9 x10^3/uL (1.0-4.8) Monocytes # (Auto) 0.9 x10^3/uL (0.0-1.1) Eosinophils # (Auto) 0.0 x10^3/uL (0.0-0.7) Basophils # (Auto) 0.1 x10^3/uL (0.0-0.2) Sodium Level 132 mmol/L (136-145) Potassium Level 5.1 mmol/L (3.5-5.1) Chloride Level 98 mmol/L (98-107) Carbon Dioxide Level 27 mmol/L (21-32) Anion Gap 7 (6-14) Blood Urea Nitrogen 15 mg/dL (8-26) Creatinine 1.7 mg/dL (0.7-1.3) Estimated GFR (Cockcroft-Gault) 50.5 BUN/Creatinine Ratio 9 (6-20) Glucose Level 132 mg/dL (70-99) Calcium Level 7.8 mg/dL (8.5-10.1) Total Bilirubin 1.6 mg/dL (0.2-1.0) Aspartate Amino Transf (AST/SGOT) 26 U/L (15-37) Alanine Aminotransferase (ALT/SGPT) 25 U/L (16-63) Alkaline Phosphatase 173 U/L (46-116) Creatine Kinase 72 U/L (39-308) Total Protein 7.0 g/dL (6.4-8.2) Albumin 1.5 g/dL (3.4-5.0) Albumin/Globulin Ratio 0.3 (1.0-1.7) Micro GRAM NEGATIVE RODS:MANY GRAM POSITIVE COCCI:FEW SQUAMOUS EPI CELL:NONE SEEN PMN (WBCs):NONE SEEN Microbiology 05/31/20 Blood Culture - Final, Complete 05/31/20 Gram Stain - Final, Resulted 05/31/20 Aerobic Culture, Resulted Pending Objective Assessment 06/24 GPC Bacteremia 05/31 MRSA Leukocytosis - s/p Dexamethasone 06/01 1. Left foot diabetic infection with gangrenous changes- S/p Left transmetatarsal guillotine amputation. Sharp excisional debridement of the left lower leg. 06/01 2. Peripheral arterial disease. 3. Gas in the x-ray probably from the wound as the patient does not look systemically sick, having gas forming organism infection. 4. Diabetes. 5. Hypertension. 6. Renal insufficiency. Plan Plan of Care Repeat Blood cults in am ECHO in am Continue Daptomycin Ck 72 06/03 and Zosyn. F/u labs and cults D/w nursing JAREN WILLARD MD Jun 03, 2020 07:22
[2020-06-03 07:31] LABS: % BANDS 3 % (0-9); % BASOS 1 % (0-3); % EOS 1 % (0-5); % LYMPHS 5 % (24-48); % MONOS 5 % (0-10); % SEGS 85 % (35-66)
[2020-06-03 07:32] LABS: ANISOCYTOSIS PRESENT; HYPOCHROMIA PRESENT; PLT ESTIMATE INCREASED (ADEQUATE)
[2020-06-03 07:35] LABS: POLYCHROMASIA SLIGHT; TARGET CELLS OCC
[2020-06-03] MEDS: TAMSULOSIN 0.4 MG CAP.ER.24H. PO SCH (08:27)
[2020-06-03] MEDS: CARVEDILOL 12.5 MG TABLET. PO SCH ×2 (08:27→17:35)
[2020-06-03 11:00] VITALS: BP 141/74
--- NOTE | 2020-06-03 11:50 | NUR ---
Dr. Archibald changed pt's surgical dressing with this RN at bedside. Pt tolerated procedure well. Pt rates pain at 5/10 after dressing changed. Requesting pain medication. Will administer, refer to EMAR for details.
[2020-06-03] MEDS: INSULIN LISPRO 300 UNITS/3 ML VIAL. SQ SCH ×2 (12:00→17:41)
[2020-06-03] MEDS: HYDROcodone/APAP 5/325MG 1 TAB TABLET PO PRN (12:09)
--- NOTE | 2020-06-03 12:11 | PDOC ---
SURGICAL PROGRESS NOTE DATE: 06/03/20 TIME: 12:07 Subjective Patient was seen and examined at the bedside and is doing well. His pain is under good control. His glucose has been under good control. Vital Signs Vital Signs Date Time Temp Pulse Resp B/P (MAP) Pulse Ox O2 Delivery O2 Flow Rate FiO2 06/03/20 08:27 79 149/69 06/03/20 08:18 Room Air 06/03/20 07:00 99.2 16 96 99.2 I&O Intake and Output 06/03/20 06:59 Intake Total 1660 ml Output Total 420 ml Balance 1240 ml Intake Oral 1560 ml IV Total 100 ml Output Urine Total 420 ml # Voids 6 General: Alert, Oriented X3, Cooperative Heart: Regular rate, Normal S1, Normal S2 Abdomen: Normal bowel sounds, Soft Extremities: No clubbing, No cyanosis, Other (Left knee contracture, pain with range of motion) Skin: Other (Left foot wounds are clean, dry, and intact, there is no evidence of purulent drainage or worsening cellulitis) Neuro: Strength at 5/5 X4 ext, Sensation intact, Cranial nerves 3-12 NL Psych/Mental Status: Mental status NL, Mood NL Labs Laboratory Tests Test 06/01/20 14:14 06/01/20 18:21 06/01/20 20:08 06/02/20 07:52 Glucose (Fingerstick) 147 mg/dL (70-99) 155 mg/dL (70-99) 150 mg/dL (70-99) 236 mg/dL (70-99) Test 06/02/20 11:50 06/02/20 16:57 06/02/20 21:18 06/03/20 03:30 Glucose (Fingerstick) 215 mg/dL (70-99) 250 mg/dL (70-99) 156 mg/dL (70-99) White Blood Count 22.7 x10^3/uL (4.0-11.0) Red Blood Count 3.69 x10^6/uL (4.30-5.70) Hemoglobin 9.3 g/dL (13.0-17.5) Hematocrit 27.8 % (39.0-53.0) Mean Corpuscular Volume 75 fL (79-100) Mean Corpuscular Hemoglobin 25 pg (25-35) Mean Corpuscular Hemoglobin Concent 34 g/dL (31-37) Red Cell Distribution Width 18.3 % (11.5-14.5) Platelet Count 413 x10^3/uL (140-400) Neutrophils (%) (Auto) 92 % (31-73) Lymphocytes (%) (Auto) 4 % (24-48) Monocytes (%) (Auto) 4 % (0-9) Eosinophils (%) (Auto) 0 % (0-3) Basophils (%) (Auto) 1 % (0-3) Neutrophils # (Auto) 20.7 x10^3/uL (1.8-7.7) Lymphocytes # (Auto) 0.9 x10^3/uL (1.0-4.8) Monocytes # (Auto) 0.9 x10^3/uL (0.0-1.1) Eosinophils # (Auto) 0.0 x10^3/uL (0.0-0.7) Basophils # (Auto) 0.1 x10^3/uL (0.0-0.2) Segmented Neutrophils % 85 % (35-66) Band Neutrophils % 3 % (0-9) Lymphocytes % 5 % (24-48) Monocytes % 5 % (0-10) Eosinophils % 1 % (0-5) Basophils % 1 % (0-3) Platelet Estimate Increased (ADEQUATE) Large Platelets Present Polychromasia Slight Hypochromasia Present Anisocytosis Present Target Cells Occ Sodium Level 132 mmol/L (136-145) Potassium Level 5.1 mmol/L (3.5-5.1) Chloride Level 98 mmol/L (98-107) Carbon Dioxide Level 27 mmol/L (21-32) Anion Gap 7 (6-14) Blood Urea Nitrogen 15 mg/dL (8-26) Creatinine 1.7 mg/dL (0.7-1.3) Estimated GFR (Cockcroft-Gault) 50.5 BUN/Creatinine Ratio 9 (6-20) Glucose Level 132 mg/dL (70-99) Calcium Level 7.8 mg/dL (8.5-10.1) Total Bilirubin 1.6 mg/dL (0.2-1.0) Aspartate Amino Transf (AST/SGOT) 26 U/L (15-37) Alanine Aminotransferase (ALT/SGPT) 25 U/L (16-63) Alkaline Phosphatase 173 U/L (46-116) Creatine Kinase 72 U/L (39-308) Total Protein 7.0 g/dL (6.4-8.2) Albumin 1.5 g/dL (3.4-5.0) Albumin/Globulin Ratio 0.3 (1.0-1.7) Test 06/03/20 07:31 06/03/20 11:50 Glucose (Fingerstick) 147 mg/dL (70-99) 125 mg/dL (70-99) Laboratory Tests Test 06/02/20 16:57 06/02/20 21:18 06/03/20 03:30 06/03/20 07:31 Glucose (Fingerstick) 250 mg/dL (70-99) 156 mg/dL (70-99) 147 mg/dL (70-99) White Blood Count 22.7 x10^3/uL (4.0-11.0) Red Blood Count 3.69 x10^6/uL (4.30-5.70) Hemoglobin 9.3 g/dL (13.0-17.5) Hematocrit 27.8 % (39.0-53.0) Mean Corpuscular Volume 75 fL (79-100) Mean Corpuscular Hemoglobin 25 pg (25-35) Mean Corpuscular Hemoglobin Concent 34 g/dL (31-37) Red Cell Distribution Width 18.3 % (11.5-14.5) Platelet Count 413 x10^3/uL (140-400) Neutrophils (%) (Auto) 92 % (31-73) Lymphocytes (%) (Auto) 4 % (24-48) Monocytes (%) (Auto) 4 % (0-9) Eosinophils (%) (Auto) 0 % (0-3) Basophils (%) (Auto) 1 % (0-3) Neutrophils # (Auto) 20.7 x10^3/uL (1.8-7.7) Lymphocytes # (Auto) 0.9 x10^3/uL (1.0-4.8) Monocytes # (Auto) 0.9 x10^3/uL (0.0-1.1) Eosinophils # (Auto) 0.0 x10^3/uL (0.0-0.7) Basophils # (Auto) 0.1 x10^3/uL (0.0-0.2) Segmented Neutrophils % 85 % (35-66) Band Neutrophils % 3 % (0-9) Lymphocytes % 5 % (24-48) Monocytes % 5 % (0-10) Eosinophils % 1 % (0-5) Basophils % 1 % (0-3) Platelet Estimate Increased (ADEQUATE) Large Platelets Present Polychromasia Slight Hypochromasia Present Anisocytosis Present Target Cells Occ Sodium Level 132 mmol/L (136-145) Potassium Level 5.1 mmol/L (3.5-5.1) Chloride Level 98 mmol/L (98-107) Carbon Dioxide Level 27 mmol/L (21-32) Anion Gap 7 (6-14) Blood Urea Nitrogen 15 mg/dL (8-26) Creatinine 1.7 mg/dL (0.7-1.3) Estimated GFR (Cockcroft-Gault) 50.5 BUN/Creatinine Ratio 9 (6-20) Glucose Level 132 mg/dL (70-99) Calcium Level 7.8 mg/dL (8.5-10.1) Total Bilirubin 1.6 mg/dL (0.2-1.0) Aspartate Amino Transf (AST/SGOT) 26 U/L (15-37) Alanine Aminotransferase (ALT/SGPT) 25 U/L (16-63) Alkaline Phosphatase 173 U/L (46-116) Creatine Kinase 72 U/L (39-308) Total Protein 7.0 g/dL (6.4-8.2) Albumin 1.5 g/dL (3.4-5.0) Albumin/Globulin Ratio 0.3 (1.0-1.7) Test 06/03/20 11:50 Glucose (Fingerstick) 125 mg/dL (70-99) Problem List Problems Medical Problems: (1) Acute on chronic renal failure Status: Acute (2) Anemia Status: Acute (3) Diabetic foot ulcer Status: Acute Assessment/Plan 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 The wound is clean and healthy without further infection. There is a lateral ankle wound that also is clean and healthy appearing. I would recommend a negative pressure wound VAC be placed to both wounds and a Y configuration to assist with healing. He will continue broad-spectrum antibiotics and taper antibiotics based on intraoperative cultures. Patient should be nonweightbearing to the left lower extremity to allow healing. Left knee contracture with limited range of motion--I would recommend orthopedic surgery evaluate him in his knee to address this issue. Likely nothing during the acute setting will need to be done given his nonambulatory status currently. Christy Moise DO, JASPER Justicifation of Admission Dx: Justifications for Admission: Justification of Admission Dx: N/A CHRISTY MOISE DO Jun 03, 2020 12:11
[2020-06-03] MEDS: NORMAL SALINE IV SCH (14:56)
[2020-06-03] MEDS: DAPTOMYCIN IV SCH (14:56)
[2020-06-03 15:00] VITALS: BP 141/69
--- NOTE | 2020-06-03 15:18 | PDOC ---
GENERAL General: Patient examined chart reviewed seen with at bedside this afternoon. He is without new complaint today. They are on board with the plan for wound VAC and discharge to rehab early this week when stable. White count is higher today we will recheck in the morning. We appreciate infectious diseases and vascular support. Continue current management otherwise. Problems: (1) Acute on chronic renal failure (2) Type 2 diabetes mellitus (3) S/P transmetatarsal amputation of foot VITAL SIGNS Vital Signs/I&O: Vital Signs Date Time Temp Pulse Resp B/P (MAP) Pulse Ox O2 Delivery O2 Flow Rate FiO2 06/03/20 11:00 98.1 73 18 141/74 (96) 97 Room Air 98.1 I & O 06/02/20 06/02/20 06/03/20 15:00 23:00 07:00 Intake Total 410 ml 50 ml 1200 ml Output Total 420 ml Balance -10 ml 50 ml 1200 ml In general the patient is frail sitting up resting in his bed with complaint today HEENT exam is unremarkable for acute abnormality Neck is soft and supple no adenopathy or thyromegaly noted Chest bilateral equal air entry though diminished throughout no crackles or wheezes are noted Heart S1-S2 normal regular rate and rhythm no murmurs or gallops are noted Extremity exam is unremarkable for acute abnormality ALLERGIES Allergies: Allergies Coded Allergies Type Severity Reaction Last Updated Verified No Known Drug Allergies 03/04/13 No MEDS Medications: Current Medications Medications (Trade) Dose Ordered Sig/Beverly Start Time Stop Time Status Last Admin Dose Admin Acetaminophen (Tylenol) 650 mg PRN Q4HRS PRN 05/31/20 20:30 06/01/20 20:29 DC Acetaminophen/ Hydrocodone Bitart (Lortab 5/325) 1 tab PRN Q6HRS PRN 06/01/20 23:00 06/03/20 12:09 Amlodipine Besylate (Norvasc) 5 mg HS 06/02/20 21:00 06/02/20 21:30 Atorvastatin Calcium (Lipitor) 80 mg HS 06/02/20 21:00 06/02/20 21:30 Bacitracin 32155 unit/Sodium Chloride 500 ml @ 500 mls/hr 1X ONCE 06/01/20 16:00 06/01/20 16:59 DC 06/01/20 17:37 Carvedilol (Coreg) 25 mg BIDWMEALS 06/02/20 17:00 06/03/20 08:27 Cefazolin Sodium (Ancef) 1 gm STK-MED ONCE 06/01/20 17:19 06/01/20 17:20 DC Cefazolin Sodium/ Dextrose 50 ml @ 100 mls/hr 1X ONCE 06/01/20 18:30 06/01/20 18:59 DC 06/01/20 17:28 Daptomycin 610 mg/ Sodium Chloride 50 ml @ 100 mls/hr Q24H 06/01/20 15:00 06/03/20 14:56 Dexamethasone Sodium Phosphate (Decadron) 4 mg STK-MED ONCE 06/01/20 17:29 06/01/20 17:29 DC Dextrose (Dextrose 50%-Water Syringe) 12.5 gm PRN Q15MIN PRN 06/02/20 12:00 Diphtheria/ Tetanus/Acell Pertussis (ADACEL TDap SYRINGE) 0.5 ml ONCE ONCE 05/31/20 22:00 05/31/20 22:01 DC Fentanyl Citrate (Fentanyl 2ml Vial) 100 mcg STK-MED ONCE 06/01/20 14:37 06/01/20 14:37 DC Hydromorphone HCl (Dilaudid) 0.5 mg PRN Q10MIN PRN 06/01/20 12:45 06/02/20 12:44 DC Insulin Human Lispro (HumaLOG VIAL for OP,RR ONLY) 0-10 units PRN Q1HR PRN 06/01/20 12:45 06/02/20 12:44 DC Insulin Human Lispro (HumaLOG) 0-7 UNITS TIDWMEALS 06/02/20 12:00 06/02/20 17:14 Labetalol HCl (Normodyne Iv Push) 10 mg PRN Q2HR PRN 06/01/20 10:30 06/02/20 00:03 Lactobacillus Rhamnosus (Culturelle) 1 cap BID 06/03/20 21:00 Lidocaine HCl (Lidocaine Pf 2% Vial) 5 ml STK-MED ONCE 06/01/20 14:37 06/01/20 14:37 DC Morphine Sulfate (Morphine Sulfate) 2 mg PRN Q2HR PRN 06/01/20 23:00 06/02/20 10:21 Ondansetron HCl (Zofran) 4 mg PRN Q4HRS PRN 06/02/20 20:15 06/03/20 00:49 Piperacillin Sod/ Tazobactam Sod 3.375 gm/Sodium Chloride 50 ml @ 100 mls/hr Q6HRS 06/01/20 09:00 06/03/20 12:09 Prochlorperazine Edisylate (Compazine) 5 mg PACU PRN PRN 06/01/20 12:45 06/02/20 12:44 DC Propofol (Diprivan) 200 mg STK-MED ONCE 06/01/20 14:37 06/01/20 14:37 DC Ringer's Solution 1,000 ml @ 30 mls/hr Q24H 06/01/20 12:45 06/02/20 00:44 DC Sertraline HCl (Zoloft) 100 mg HS 06/02/20 21:00 06/02/20 21:30 Sodium Chloride 1,000 ml @ 125 mls/hr 1X ONCE 05/31/20 20:30 06/01/20 04:29 DC 05/31/20 22:09 Tamsulosin HCl (Flomax) 0.4 mg DAILY 06/02/20 12:00 06/03/20 08:27 Vancomycin HCl (Vanco Per Pharmacy) 1 each PRN DAILY PRN 05/31/20 18:15 06/01/20 14:07 DC 06/01/20 11:22 Vancomycin HCl (Vancomycin Trough Level) 1 each 1X ONCE 06/02/20 07:30 06/01/20 14:04 DC Vancomycin HCl 1.25 gm/Sodium Chloride 250 ml @ 167 mls/hr Q12H 06/01/20 08:00 06/01/20 14:03 DC 06/01/20 08:10 Vancomycin HCl 2 gm/Sodium Chloride 500 ml @ 250 mls/hr 1X ONCE 05/31/20 19:00 06/01/20 14:03 DC 05/31/20 20:06 Current Medications Medications (Trade) Dose Ordered Sig/Beverly Route PRN Reason Start Time Stop Time Status Last Admin Dose Admin Amlodipine Besylate (Norvasc) 5 mg HS PO 06/02/20 21:00 06/02/20 21:30 Atorvastatin Calcium (Lipitor) 80 mg HS PO 06/02/20 21:00 06/02/20 21:30 Carvedilol (Coreg) 25 mg BIDWMEALS PO 06/02/20 17:00 06/03/20 08:27 Sertraline HCl (Zoloft) 100 mg HS PO 06/02/20 21:00 06/02/20 21:30 Ondansetron HCl (Zofran) 4 mg PRN Q4HRS PRN IVP NAUSEA/VOMITING 06/02/20 20:15 06/03/20 00:49 LAB Lab: Laboratory Tests Test 06/02/20 16:57 06/02/20 21:18 06/03/20 03:30 06/03/20 07:31 Glucose (Fingerstick) 250 mg/dL (70-99) H 156 mg/dL (70-99) H 147 mg/dL (70-99) H White Blood Count 22.7 x10^3/uL (4.0-11.0) H Red Blood Count 3.69 x10^6/uL (4.30-5.70) L Hemoglobin 9.3 g/dL (13.0-17.5) L Hematocrit 27.8 % (39.0-53.0) L Mean Corpuscular Volume 75 fL (79-100) L Mean Corpuscular Hemoglobin 25 pg (25-35) Mean Corpuscular Hemoglobin Concent 34 g/dL (31-37) Red Cell Distribution Width 18.3 % (11.5-14.5) H Platelet Count 413 x10^3/uL (140-400) H Neutrophils (%) (Auto) 92 % (31-73) H Lymphocytes (%) (Auto) 4 % (24-48) L Monocytes (%) (Auto) 4 % (0-9) Eosinophils (%) (Auto) 0 % (0-3) Basophils (%) (Auto) 1 % (0-3) Neutrophils # (Auto) 20.7 x10^3/uL (1.8-7.7) H Lymphocytes # (Auto) 0.9 x10^3/uL (1.0-4.8) L Monocytes # (Auto) 0.9 x10^3/uL (0.0-1.1) Eosinophils # (Auto) 0.0 x10^3/uL (0.0-0.7) Basophils # (Auto) 0.1 x10^3/uL (0.0-0.2) Segmented Neutrophils % 85 % (35-66) H Band Neutrophils % 3 % (0-9) Lymphocytes % 5 % (24-48) L Monocytes % 5 % (0-10) Eosinophils % 1 % (0-5) Basophils % 1 % (0-3) Platelet Estimate Increased (ADEQUATE) Large Platelets Present Polychromasia Slight Hypochromasia Present Anisocytosis Present Target Cells Occ Sodium Level 132 mmol/L (136-145) L Potassium Level 5.1 mmol/L (3.5-5.1) Chloride Level 98 mmol/L (98-107) Carbon Dioxide Level 27 mmol/L (21-32) Anion Gap 7 (6-14) Blood Urea Nitrogen 15 mg/dL (8-26) Creatinine 1.7 mg/dL (0.7-1.3) H Estimated GFR (Cockcroft-Gault) 50.5 BUN/Creatinine Ratio 9 (6-20) Glucose Level 132 mg/dL (70-99) H Calcium Level 7.8 mg/dL (8.5-10.1) L Total Bilirubin 1.6 mg/dL (0.2-1.0) H Aspartate Amino Transferase (AST) 26 U/L (15-37) Alanine Aminotransferase (ALT) 25 U/L (16-63) Alkaline Phosphatase 173 U/L (46-116) H Creatine Kinase 72 U/L (39-308) Total Protein 7.0 g/dL (6.4-8.2) Albumin 1.5 g/dL (3.4-5.0) L Albumin/Globulin Ratio 0.3 (1.0-1.7) L Test 06/03/20 11:50 Glucose (Fingerstick) 125 mg/dL (70-99) H Laboratory Tests 06/03/20 03:30 Laboratory Tests 06/03/20 03:30 ASSESSMENT & PLAN A&P Plan as noted above This note was created using [employer] and may have omissions and/or errors due to 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 Justifications for Admission Other Justification Problem Qualifiers (1) Acute on chronic renal failure: Acute renal failure type: unspecified Chronic kidney disease stage: unspecified stage Qualified Codes: N17.9 - Acute kidney failure, unspecified; N18.9 - Chronic kidney disease, unspecified (2) S/P transmetatarsal amputation of foot: Laterality: left Qualified Codes: Z89.432 - Acquired absence of left foot BREA ASKEW MD Jun 03, 2020 15:18
[2020-06-03 19:00] VITALS: BP 169/91
[2020-06-03] MEDS: SERTRALINE 50 MG TABLET. PO SCH (20:54)
[2020-06-03] MEDS: ATORVASTATIN CALCIUM 40 MG TABLET. PO SCH (20:54)
[2020-06-03] MEDS: amLODIPine BESYLATE 5 MG TABLET PO SCH (20:55)
[2020-06-03] MEDS: LACTOBACILLUS RHAMNOSUS GG 1 CAPSULE. PO SCH (20:56)
[2020-06-03 23:00] VITALS: BP 132/68
[2020-06-04] MEDS: PIPERACILLIN/TAZOBACTAM 3.375 GM in IV NORMAL SALINE 50ML 50 ML IV SCH ×4 (00:46→17:23)
[2020-06-04 03:07] LABS: HEMOGLOBIN A1C 7.4 % (4.8-5.6)
[2020-06-04 03:30] VITALS: BP 142/73
[2020-06-04] MEDS: MORPHINE SULFATE 2 MG/ML VIAL. IV PRN ×2 (05:58→16:12)
[2020-06-04 07:00] VITALS: BP 153/80
--- NOTE | 2020-06-04 07:10 | NUR ---
IP: Pt is mrsa + in blood requiring contact precautions with an open wound.
[2020-06-04] MEDS: INSULIN LISPRO 300 UNITS/3 ML VIAL. SQ SCH ×3 (08:00→17:00)
[2020-06-04] MEDS: CARVEDILOL 12.5 MG TABLET. PO SCH ×2 (09:02→17:00)
[2020-06-04] MEDS: TAMSULOSIN 0.4 MG CAP.ER.24H. PO SCH (09:03)
[2020-06-04] MEDS: LACTOBACILLUS RHAMNOSUS GG 1 CAPSULE. PO SCH ×2 (09:03→21:04)
[2020-06-04 09:08] LABS: BASO # 0.1 x10^3/uL (0.0-0.2); BASO % 1 % (0-3); EOS # 0.2 x10^3/uL (0.0-0.7); EOS % 1 % (0-3); HEMATOCRIT 23.6 % (39.0-53.0); HEMOGLOBIN 7.8 g/dL (13.0-17.5); LYMPH # 1.6 x10^3/uL (1.0-4.8); LYMPH % 12 % (24-48); MEAN CORPUSCULAR HEMOGLOBIN 25 pg (25-35); MEAN CORPUSCULAR HGB CONC 33 g/dL (31-37); MEAN CORPUSCULAR VOLUME 76 fL (79-100); MONO % 8 % (0-9); NEUT # 10.5 x10^3/uL (1.8-7.7); NEUT % 79 % (31-73); PLATELET COUNT 386 x10^3/uL (140-400); RED BLOOD COUNT 3.12 x10^6/uL (4.30-5.70); WHITE BLOOD COUNT 13.3 x10^3/uL (4.0-11.0)
[2020-06-04 09:21] LABS: ALBUMIN 1.4 g/dL (3.4-5.0); ALBUMIN/GLOBULIN RATIO 0.2 (1.0-1.7); CREATININE 1.5 mg/dL (0.7-1.3); GFR 58.4; TOTAL BILIRUBIN 1.3 mg/dL (0.2-1.0); TOTAL PROTEIN 7.4 g/dL (6.4-8.2)
--- NOTE | 2020-06-04 09:52 | PDOC ---
Infectious Disease Note Subjective: Subjective Comfortable. Some N/V o/w NO pain/F/C/S/D/SOA/rash Vital Signs: Vital Signs Vital Signs Date Time Temp Pulse Resp B/P (MAP) Pulse Ox O2 Delivery O2 Flow Rate FiO2 06/04/20 09:02 68 153/80 06/04/20 07:00 98.7 18 96 Room Air 98.7 06/04/20 05:58 8.0 Physical Exam: PHYSICAL EXAM GENERAL: Alert, oriented gentleman, not in distress. HEENT: Both pupils are round and reacting. No conjunctival lesion. No lesion in the mouth. NECK: Supple, no JVP, no lymphadenopathy. LUNGS: Clear. HEART: S1, S2 regular. ABDOMEN: Soft, nontender, no organomegaly. EXTREMITIES: The right lower extremity does have some superficial skin breakdowns and scabs present. Left lower extremity - cielo ssed NEUROLOGIC: The patient is alert, awake and appropriate. No focal neurologic deficit. SKIN: No rash Medications: Inpatient Meds: Medications reviewed. Labs: Lab Laboratory Tests Test 06/03/20 11:50 06/03/20 17:20 06/03/20 20:05 06/04/20 07:43 Glucose (Fingerstick) 125 mg/dL (70-99) 172 mg/dL (70-99) 162 mg/dL (70-99) 135 mg/dL (70-99) Test 06/04/20 08:40 White Blood Count 13.3 x10^3/uL (4.0-11.0) Red Blood Count 3.12 x10^6/uL (4.30-5.70) Hemoglobin 7.8 g/dL (13.0-17.5) Hematocrit 23.6 % (39.0-53.0) Mean Corpuscular Volume 76 fL (79-100) Mean Corpuscular Hemoglobin 25 pg (25-35) Mean Corpuscular Hemoglobin Concent 33 g/dL (31-37) Red Cell Distribution Width 18.0 % (11.5-14.5) Platelet Count 386 x10^3/uL (140-400) Neutrophils (%) (Auto) 79 % (31-73) Lymphocytes (%) (Auto) 12 % (24-48) Monocytes (%) (Auto) 8 % (0-9) Eosinophils (%) (Auto) 1 % (0-3) Basophils (%) (Auto) 1 % (0-3) Neutrophils # (Auto) 10.5 x10^3/uL (1.8-7.7) Lymphocytes # (Auto) 1.6 x10^3/uL (1.0-4.8) Monocytes # (Auto) 1.0 x10^3/uL (0.0-1.1) Eosinophils # (Auto) 0.2 x10^3/uL (0.0-0.7) Basophils # (Auto) 0.1 x10^3/uL (0.0-0.2) Sodium Level 131 mmol/L (136-145) Potassium Level 4.0 mmol/L (3.5-5.1) Chloride Level 98 mmol/L (98-107) Carbon Dioxide Level 26 mmol/L (21-32) Anion Gap 7 (6-14) Blood Urea Nitrogen 20 mg/dL (8-26) Creatinine 1.5 mg/dL (0.7-1.3) Estimated GFR (Cockcroft-Gault) 58.4 BUN/Creatinine Ratio 13 (6-20) Glucose Level 127 mg/dL (70-99) Calcium Level 8.0 mg/dL (8.5-10.1) Total Bilirubin 1.3 mg/dL (0.2-1.0) Aspartate Amino Transf (AST/SGOT) 24 U/L (15-37) Alanine Aminotransferase (ALT/SGPT) 20 U/L (16-63) Alkaline Phosphatase 138 U/L (46-116) Total Protein 7.4 g/dL (6.4-8.2) Albumin 1.4 g/dL (3.4-5.0) Albumin/Globulin Ratio 0.2 (1.0-1.7) Micro ------ ------ RUN DATE: 06/04/20 [facility] LAB *LIVE* PAGE 1 RUN TIME: 0181 Specimen Inquiry PATIENT: TAMARA FOFANA ACCT: [id number] LOC: [address] [place] [address] U: [id number] AGE/SX: 55/M ROOM: [facility] RE05/31/[address]: ANCELMO TODD III DO : 1965 BED: 1 DIS: STATUS: ADM IN TLOC: SPEC #: [id number] GEOVANNA: 05/31/20 STATUS: COMP REQ #: [id number] RECD: 05/31/[address]: DANIEL PENA APRN SOURCE: FOOT ENTR: 05/31/20-[address]: DAREK,STAFF SPDESC: LEFT ORDERED: AEROBIC CULT DIDI COMMENTS: LEFT FOOT ULCER Procedure Result GRAM STAIN Final Final GRAM NEGATIVE RODS:MANY GRAM POSITIVE COCCI:FEW SQUAMOUS EPI CELL:NONE SEEN PMN (WBCs):NONE SEEN Unless otherwise specified, Testing Performed by: [address] [address] For Inquires, the Physician may contact the Microbiology department at [phone] AEROBIC CULTURE Final Final MANY GRAM NEGATIVE RODS on 06/02/20 at 1137 FINAL ID= [PROTEUS VULGARIS GROUP] MODERATE [STAPHYLOCOCCUS AUREUS (MRSA)] on 06/02/20 at 1137 MODERATE Mixed skin christiana isolated on 06/02/20 at 1137 Testing Performed by: [address] [address] For Inquires, the Physician may contact the Microbiology department at [phone] PROTEUS VULGARIS GROUP STAPHYLOCOCCUS AUREUS (MRSA) ANTIMICROBIAL SUSCEPTIBILITY Final Comment Comment NEG SHANON 56 PROTEUS VULGARIS GROUP ANTIBIOTIC RESULT INTERPRETATION AMPICILLIN/SULBACTAM 16/8 I AMIKACIN <=16 S AMPICILLIN >16 R AMOXICILLIN/K CLAVULANATE <=8/4 S AZTREONAM >16 R RUN DATE: 06/04/20 [facility] *LIVE* PAGE 2 RUN TIME: 0820 Specimen Inquiry SPEC: [id number] PATIENT: TAMARA FOFANA [id number] (Continued) Procedure Result CONTINUED ON NEXT PAGE RUN DATE: 06/04/20 [facility] *LIVE* PAGE 3 RUN TIME: 0820 Specimen Inquiry SPEC: [id number] PATIENT: TAMARA FOFANA [id number] (Continued) Procedure Result ANTIMICROBIAL SUSCEPTIBILITY Final (continued) CEFTRIAXONE >32 R CEFTAZIDIME 4 S CEFOTAXIME 32 I CEFOXITIN <=8 S CEFAZOLIN >16 R CIPROFLOXACIN <=0.25 S CEFEPIME <=2 S CEFUROXIME >16 R ERTAPENEM <=0.5 S GENTAMICIN <=2 S LEVOFLOXACIN <=0.5 S MEROPENEM <=1 S PIPERACILLIN/TAZOBACTAM <=8 S TRIMETHOPRIM/SULFAMETHOXAZOLE <=0.5/9.5 S TETRACYCLINE >8 R TOBRAMYCIN <=2 S POS SHANON TYPE 38 STAPHYLOCOCCUS AUREUS (MRSA) ANTIBIOTIC RESULT INTERPRETATION AZITHROMYCIN <=2 S CLINDAMYCIN 0.5 S CEFOXITIN SCREEN >4 POS CIPROFLOXACIN >2 R CEFTAROLINE 1 S DAPTOMYCIN 1 S ERYTHROMYCIN <=0.25 S GENTAMICIN <=4 S LINEZOLID 4 S LEVOFLOXACIN >4 R OXACILLIN >2 R PENICILLIN >2 R* RIFAMPIN <=1 S TRIMETHOPRIM/SULFAMETHOXAZOLE >2/38 R TETRACYCLINE <=4 S VANCOMYCIN 1 S Unless otherwise specified, Testing Performed by: [address] [address] For Inquires, the Physician may contact the Microbiology department at [phone] RUN DATE: 06/03/20 [facility] LAB *LIVE* PAGE 1 RUN TIME: 704 Specimen Inquiry PATIENT: CTTAMARA ACCT: [id number] LOC: [address] [place] [address] U: [id number] AGE/SX: 55/M ROOM: 662 RE05/31/[address]: ANCELMO TODD III DO : 1965 BED: 1 D IS: STATUS: ADM IN TLOC: SPEC #: [id number] GEOVANNA: 05/31/20 STATUS: JULIANA REDouglas #: [id number] RECD: 05/31/[address] [facility] [address]: DANIEL PENA APRN SOURCE: BLOOD ENTR: 06/01/20-[address]: DAREK,STAFF [facility]: ORDERED: BLD CULT - LC Procedure Result BLOOD CULTURE LC Final Final FINAL ID= [STAPHYLOCOCCUS AUREUS (MRSA)] STAPHYLOCOCCUS AUREUS (MRSA) ANTIMICROBIAL SUSCEPTIBILITY Final Comment POS SHANON TYPE 38 STAPHYLOCOCCUS AUREUS (MRSA) ANTIBIOTIC RESULT INTERPRETATION AZITHROMYCIN <=2 S CLINDAMYCIN 0.5 S CEFOXITIN SCREEN >4 POS CIPROFLOXACIN >2 R CEFTAROLINE 1 S DAPTOMYCIN 1 S ERYTHROMYCIN <=0.25 S GENTAMICIN <=4 S LINEZOLID 4 S LEVOFLOXACIN >4 R OXACILLIN >2 R PENICILLIN >2 R* RIFAMPIN <=1 S TRIMETHOPRIM/SULFAMETHOXAZOLE >2/38 R TETRACYCLINE <=4 S VANCOMYCIN 1 S Unless otherwise specified, Testing Performed by: [address] [address] For Inquires, the Physician may contact the Microbiology department at [phone] -- Objective: Assessment: MRSA bacteremia 4 out of 4 bottles 05/31 POA Leukocytosis - s/p Dexamethasone 06/01 Left foot diabetic infection with gangrenous changes- S/p Left transmetatarsal guillotine amputation. Sharp excisional debridement of the left lower leg. 06/01 Peripheral arterial disease. Diabetes. Hypertension. Renal insufficiency. Plan: Plan of Care Continue daptomycin and Zosyn CK 72 on June 03 Local wound care as directed Follow-up labs and cults Follow-up blood cultures from 06/04/2020 Will need ADAN Discussed with nursing staff ESPERANZA VILLELA MD Jun 04, 2020 09:52
[2020-06-04 11:00] VITALS: BP 145/73
--- NOTE | 2020-06-04 12:07 | PDOC ---
[employer] PROGRESS NOTE Date of Service DOS: DATE: 06/04/20 TIME: 12:05 Chief Complaint Chief Complaint Assessment/Plan Sepsis Left foot diabetic infection with gangrenous changes. Peripheral vascular disease Left lower extremity DVT KAYCEE due to vasomotor nephropathy History of diabetes mellitus type 2 Hypertensive urgency Anemia of chronic inflammation Elevated alkaline phosphatase Severe protein malnutrition Continue empiric IV antibiotics Pending blood and wound cultures Pending OR with vascular surgery Wound care consult PT OT Lovenox for DVT prophylaxis ADA diet Full code Discussed with RN and SW Disposition pending surgical debridement Surrogate decision maker is the History of Present Illness History of Present Illness 06/04/2020 Patient seen and evaluated s/p left transmetatarsal amputation. Afebrile, no acute vents overnight. He is to have wound VAC placed today. Continue IV anti biotics, per ID. 06/01/2020 No acute events overnight. Pain is well controlled. T-max of 100.2 this morning. Patient has no concerns at this time. No concerns from nursing. Patient's chart, labs, images were reviewed and discussed with RN 55-year-old male who has peripheral vascular disease. He has had diabetes for many years. He has never had any surgeries on his legs, but the left lower extremity he has got a severe diabetic wound. Vitals/I&O Vitals/I&O: Vital Signs Date Time Temp Pulse Resp B/P (MAP) Pulse Ox O2 Delivery O2 Flow Rate FiO2 06/04/20 11:00 98.7 71 18 145/73 (97) 96 Room Air 98.7 06/04/20 05:58 8.0 I & O 06/03/20 06/03/20 06/04/20 15:00 23:00 07:00 Intake Total 100 ml 100 ml Output Total 200 ml 350 ml Balance 100 ml -100 ml -350 ml Physical Exam Physical Exam: GENERAL: Alert, oriented gentleman, not in distress. HEENT: Both pupils are round and reacting. No conjunctival lesion. No lesion in the mouth. NECK: Supple, no JVP, no lymphadenopathy. LUNGS: Clear. HEART: S1, S2 regular. ABDOMEN: Soft, nontender, no organomegaly. EXTREMITIES: The right lower extremity does have some superficial skin breakdowns and scabs present. Left lower extremity - dressed NEUROLOGIC: The patient is alert, awake and appropriate. No focal neurologic deficit. SKIN: No rash General: Alert, Oriented X3, Cooperative Heart: Regular rate, Normal S1, Normal S2 Abdomen: Normal bowel sounds, Soft Extremities: No clubbing, No cyanosis, Other (Left knee contracture, pain with range of motion) Skin: Other (Left foot wounds are clean, dry, and intact, there is no evidence of purulent drainage or worsening cellulitis) Labs Labs: Laboratory Tests Test 06/03/20 17:20 06/03/20 20:05 06/04/20 07:43 06/04/20 08:40 Glucose (Fingerstick) 172 mg/dL (70-99) 162 mg/dL (70-99) 135 mg/dL (70-99) White Blood Count 13.3 x10^3/uL (4.0-11.0) Red Blood Count 3.12 x10^6/uL (4.30-5.70) Hemoglobin 7.8 g/dL (13.0-17.5) Hematocrit 23.6 % (39.0-53.0) Mean Corpuscular Volume 76 fL (79-100) Mean Corpuscular Hemoglobin 25 pg (25-35) Mean Corpuscular Hemoglobin Concent 33 g/dL (31-37) Red Cell Distribution Width 18.0 % (11.5-14.5) Platelet Count 386 x10^3/uL (140-400) Neutrophils (%) (Auto) 79 % (31-73) Lymphocytes (%) (Auto) 12 % (24-48) Monocytes (%) (Auto) 8 % (0-9) Eosinophils (%) (Auto) 1 % (0-3) Basophils (%) (Auto) 1 % (0-3) Neutrophils # (Auto) 10.5 x10^3/uL (1.8-7.7) Lymphocytes # (Auto) 1.6 x10^3/uL (1.0-4.8) Monocytes # (Auto) 1.0 x10^3/uL (0.0-1.1) Eosinophils # (Auto) 0.2 x10^3/uL (0.0-0.7) Basophils # (Auto) 0.1 x10^3/uL (0.0-0.2) Sodium Level 131 mmol/L (136-145) Potassium Level 4.0 mmol/L (3.5-5.1) Chloride Level 98 mmol/L (98-107) Carbon Dioxide Level 26 mmol/L (21-32) Anion Gap 7 (6-14) Blood Urea Nitrogen 20 mg/dL (8-26) Creatinine 1.5 mg/dL (0.7-1.3) Estimated GFR (Cockcroft-Gault) 58.4 BUN/Creatinine Ratio 13 (6-20) Glucose Level 127 mg/dL (70-99) Calcium Level 8.0 mg/dL (8.5-10.1) Total Bilirubin 1.3 mg/dL (0.2-1.0) Aspartate Amino Transf (AST/SGOT) 24 U/L (15-37) Alanine Aminotransferase (ALT/SGPT) 20 U/L (16-63) Alkaline Phosphatase 138 U/L (46-116) Total Protein 7.4 g/dL (6.4-8.2) Albumin 1.4 g/dL (3.4-5.0) Albumin/Globulin Ratio 0.2 (1.0-1.7) Test 06/04/20 11:34 Glucose (Fingerstick) 204 mg/dL (70-99) Assessment and Plan Assessmemt and Plan Problems Medical Problems: (1) Acute on chronic renal failure Status: Acute (2) Anemia Status: Acute (3) Diabetic foot ulcer Status: Acute Comment Review of Relevant I have reviewed the following items deepa (where applicable) has been applied. Medications: Current Medications Medications (Trade) Dose Ordered Sig/Beverly Route PRN Reason Start Time Stop Time Status Last Admin Dose Admin Lactobacillus Rhamnosus (Culturelle) 1 cap BID PO 06/03/20 21:00 06/04/20 09:03 Justifications for Admission Other Justification LA WHITEHEAD MD Jun 04, 2020 12:07
--- NOTE | 2020-06-04 13:09 | NUR ---
SW following for discharge planning. Pt COVID results negative, pt post surgery. Pt remains on room air. Pt remains on IV abx. Pt diet ADA. PT/OT to evaluate. SW following. Addendum: 06/04/20 at 1508 by PERLA TAI Pt positive for MRSA. Addendum: 06/04/20 at 1700 by PERLA TAI PT recommendation is for acute rehab. ZAIRE met with pt and pt's . Pt agreeable and would like referral sent to acute rehab. Pt choice of vendor form completed. Referral phoned and faxed.
--- NOTE | 2020-06-04 14:49 | PDOC ---
Provider Note Date of Service: DATE: 06/04/20 TIME: 14:47 Provider Note Pt currently working with PT at bedside. Dressing intact on the left foot. He is s/p open left transmetatarsal amputation. He is to have Wound vac applied to the left foot. Will need to continue abx and local wound care. PT for mobilization and transfer training. Justifications for Admission Other Justification MATEUS AYOUB MD Jun 04, 2020 14:49
[2020-06-04 15:00] VITALS: BP 160/75
[2020-06-04] MEDS: NORMAL SALINE IV SCH (15:03)
[2020-06-04] MEDS: DAPTOMYCIN IV SCH (15:03)
[2020-06-04] MEDS: HYDROcodone/APAP 5/325MG 1 TAB TABLET PO PRN (15:03)
--- NOTE | 2020-06-04 16:05 | NUR ---
Wound Care Wound Type/Assessment: Consult by vascular surgery to apply NPWT to L TMA and L medial venous wound s/p I&D on 06/01/20. R anterior leg has stable, intact, dry scabs. LLE has one superficial open area that is pink and moist from a deroofed blister documented as LLE #1. A second blister site documented as LLE #2 was not located. These assessments have been discontinued. L TMA is bright red with exposed bone, tendon,and adipose. L medial lower leg wound (LLE #3 per documentation) granulated with exposed muscle and adipose (exposed tendon erroneously documented in wound assessment, please disregard). No other open wounds noted on head to toe assessment. Treatment Recommendations/Plan: NPWT to LLE and L TMA wounds. Ole be changed by wound care nurses Education provided: Educated to turn often to avoid skin breakdown and how to troubleshoot wound vac Offloading surface/device: able to turn independently Recommended Referrals/Tests: NA Discharge Recommendations for dressings: As above. Follow up in wound clinic after DC
[2020-06-04 19:00] VITALS: BP 165/80
[2020-06-04] MEDS: SERTRALINE 50 MG TABLET. PO SCH (21:04)
[2020-06-04] MEDS: ATORVASTATIN CALCIUM 40 MG TABLET. PO SCH (21:05)
[2020-06-04] MEDS: amLODIPine BESYLATE 5 MG TABLET PO SCH (21:05)
[2020-06-04 23:00] VITALS: BP 161/78
[2020-06-05] MEDS: PIPERACILLIN/TAZOBACTAM 3.375 GM in IV NORMAL SALINE 50ML 50 ML IV SCH ×4 (00:36→17:20)
[2020-06-05 03:00] VITALS: BP 161/75
[2020-06-05 07:00] VITALS: BP 186/89
[2020-06-05] MEDS: INSULIN LISPRO 300 UNITS/3 ML VIAL. SQ SCH ×3 (08:00→16:59)
[2020-06-05] MEDS: CARVEDILOL 12.5 MG TABLET. PO SCH ×2 (08:26→17:20)
[2020-06-05] MEDS: LACTOBACILLUS RHAMNOSUS GG 1 CAPSULE. PO SCH ×2 (08:26→20:28)
[2020-06-05] MEDS: TAMSULOSIN 0.4 MG CAP.ER.24H. PO SCH (08:27)
--- NOTE | 2020-06-05 08:54 | PDOC ---
[employer] PROGRESS NOTE Date of Service DOS: DATE: 06/05/20 TIME: 08:52 Chief Complaint Chief Complaint Assessment/Plan Sepsis Left foot diabetic infection with gangrenous changes. Peripheral vascular disease Left lower extremity DVT KAYCEE due to vasomotor nephropathy History of diabetes mellitus type 2 Hypertensive urgency Anemia of chronic inflammation Elevated alkaline phosphatase Severe protein malnutrition Continue empiric IV antibiotics Pending blood and wound cultures Pending OR with vascular surgery Wound care consult PT OT Lovenox for DVT prophylaxis ADA diet Full code Discussed with RN and SW Disposition pending surgical debridement Surrogate decision maker is the History of Present Illness History of Present Illness 06/05/2020 Afebrile. No complaints, breathing room air. Wound VAC in place, s/p transmetatarsal agitation. Continue IV antibiotics, per ID, and local wound care. Worked with PT yesterday, recommending acute rehab. Plan for ADAN today. 06/04/2020 Patient seen and evaluated s/p left transmetatarsal amputation. Afebrile, no acute vents overnight. He is to have wound VAC placed today. Continue IV antibiotics, per ID. 06/01/2020 No acute events overnight. Pain is well controlled. T-max of 100.2 this morning. Patient has no concerns at this time. No concerns from nursing. Patient's chart, labs, images were reviewed and discussed with RN 55-year-old male who has peripheral vascular disease. He has had diabetes for many years. He has never had any surgeries on his legs, but the left lower extremity he has got a severe diabetic wound. Vitals/I&O Vitals/I&O: Vital Signs Date Time Temp Pulse Resp B/P (MAP) Pulse Ox O2 Delivery O2 Flow Rate FiO2 06/05/20 08:30 Room Air 06/05/20 08:26 72 186/89 06/05/20 07:00 98.1 16 95 98.1 I & O 06/04/20 06/04/20 06/05/20 15:00 23:00 07:00 Output Total 200 ml 700 ml 1000 ml Balance -200 ml -700 ml -1000 ml Physical Exam General: Alert, Oriented X3, Cooperative Heart: Regular rate, Normal S1, Normal S2 Abdomen: Normal bowel sounds, Soft Extremities: No clubbing, No cyanosis, Other (Left foot with wound VAC in place) Skin: Other (Left foot wounds are clean, dry, and intact, there is no evidence of purulent drainage or worsening cellulitis) Labs Labs: Laboratory Tests Test 06/04/20 11:34 06/04/20 17:01 06/05/20 00:32 06/05/20 07:21 Glucose (Fingerstick) 204 mg/dL (70-99) 158 mg/dL (70-99) 153 mg/dL (70-99) 139 mg/dL (70-99) Assessment and Plan Assessmemt and Plan Problems Medical Problems: (1) Acute on chronic renal failure Status: Acute (2) Anemia Status: Acute (3) Diabetic foot ulcer Status: Acute Comment Review of Relevant I have reviewed the following items deepa (where applicable) has been applied. Justifications for Admission Other Justification LA WHITEHEAD MD Jun 05, 2020 08:54
[2020-06-05] MEDS ORDERED: BENZOCAINE ONE 20% MUCOSAL SPRAY. MM (10:45)
[2020-06-05] MEDS ORDERED: LIDOCAINE 2% TOPICAL JELLY 30GM TUBE. TP ONE (10:45)
[2020-06-05] MEDS ORDERED: LIDOCAINE 2% VISCOUS 15 ML SOLUTION. SWSW ONE (10:45)
[2020-06-05 11:00] VITALS: BP 128/66
--- NOTE | 2020-06-05 11:08 | PDOC ---
Infectious Disease Note Subjective: Subjective Patient without complaints Denies any postop Denies nausea/vomiting /F/C/S/D/SOA/rash Vital Signs: Vital Signs Vital Signs Date Time Temp Pulse Resp B/P (MAP) Pulse Ox O2 Delivery O2 Flow Rate FiO2 06/05/20 08:30 Room Air 06/05/20 08:26 72 186/89 06/05/20 07:00 98.1 16 95 98.1 Physical Exam: PHYSICAL EXAM GENERAL: Alert, oriented gentleman, not in distress. HEENT: Both pupils are round and reacting. No conjunctival lesion. No lesion in the mouth. NECK: Supple, no JVP, no lymphadenopathy. LUNGS: Clear. HEART: S1, S2 regular. ABDOMEN: Soft, nontender, no organomegaly. EXTREMITIES: The right lower extremity does have some superficial skin breakdowns and scabs present. Left lower extremity - dressed NEUROLOGIC: The patient is alert, awake and appropriate. No focal neurologic deficit. SKIN: No rash Medications: Inpatient Meds: Medications reviewed. Labs: Lab Laboratory Tests Test 06/04/20 11:34 06/04/20 17:01 06/05/20 00:32 06/05/20 07:21 Glucose (Fingerstick) 204 mg/dL (70-99) 158 mg/dL (70-99) 153 mg/dL (70-99) 139 mg/dL (70-99) Test 06/05/20 10:56 Glucose (Fingerstick) 179 mg/dL (70-99) Micro RUN DATE: 06/04/20 [facility] *LIVE* PAGE 1 RUN TIME: 819 Specimen Inquiry PATIENT: TAMARA FOFANA ACCT: [id number] LOC: [address] [place] [address] U: [id number] AGE/SX: 55/M ROOM: 2 RE05/31/[address]: ANCELMO TODD III DO : 1965 BED: 1 DIS: STATUS: ADM IN TLOC: ------ ------ SPEC #: [id number] GEOVANNA: 05/31/20 STATUS: COMP REQ #: [id number] RECD: 05/31/[address]: DANIEL PENA APRN SOURCE: FOOT ENTR: 05/31/[address]: DAREK,STAFF SPDESC: LEFT ORDERED: AEROBIC CULT GS COMMENTS: LEFT FOOT ULCER Procedure Result GRAM STAIN Final Final GRAM NEGATIVE RODS:MANY GRAM POSITIVE COCCI:FEW SQUAMOUS EPI CELL:NONE SEEN PMN (WBCs):NONE SEEN Unless otherwise specified, Testing Performed by: [address] [address] For Inquires, the Physician may contact the Microbiology department at [phone] AEROBIC CULTURE Final Final MANY GRAM NEGATIVE RODS on 06/02/20 at 1130 FINAL ID= [PROTEUS VULGARIS GROUP] MODERATE [STAPHYLOCOCCUS AUREUS (MRSA)] on 06/02/20 at 1137 MODERATE Mixed skin christiana isolated on 06/02/20 at 1137 Testing Performed by: [address] [address] For Inquires, the Physician may contact the Microbiology department at [phone] PROTEUS VULGARIS GROUP STAPHYLOCOCCUS AUREUS (MRSA) ANTIMICROBIAL SUSCEPTIBILITY Final Comment Comment NEG SHANON 56 PROTEUS VULGARIS GROUP ANTIBIOTIC RESULT INTERPRETATION AMPICILLIN/SULBACTAM 16/8 I AMIKACIN <=16 S AMPICILLIN >16 R AMOXICILLIN/K CLAVULANATE <=8/4 S AZTREONAM >16 R RUN DATE: 06/04/20 [facility] *LIVE* PAGE 2 RUN TIME: 0820 Specimen Inquiry SPEC: [id number] PATIENT: FOFANATAMARA [id number] (Continued) Procedure Result CONTINUED ON NEXT PAGE RUN DATE: 06/04/20 [facility] *LIVE* PAGE 3 RUN TIME: 0820 Specimen Inquiry SPEC: [id number] PATIENT: HILDA FOFANASLOANE Engel [id number] (Continued) ---- -------- Procedure Result ANTIMICROBIAL SUSCEPTIBILITY Final (continued) CEFTRIAXONE >32 R CEFTAZIDIME 4 S CEFOTAXIME 32 I CEFOXITIN <=8 S CEFAZOLIN >16 R CIPROFLOXACIN <=0.25 S CEFEPIME <=2 S CEFUROXIME >16 R ERTAPENEM <=0.5 S GENTAMICIN <=2 S LEVOFLOXACIN <=0.5 S MEROPENEM <=1 S PIPERACILLIN/TAZOBACTAM <=8 S TRIMETHOPRIM/SULFAMETHOXAZOLE <=0.5/9.5 S TETRACYCLINE >8 R TOBRAMYCIN <=2 S POS SHANON TYPE 38 STAPHYLOCOCCUS AUREUS (MRSA) ANTIBIOTIC RESULT INTERPRETATION AZITHROMYCIN <=2 S CLINDAMYCIN 0.5 S CEFOXITIN SCREEN >4 POS CIPROFLOXACIN >2 R CEFTAROLINE 1 S DAPTOMYCIN 1 S ERYTHROMYCIN <=0.25 S GENTAMICIN <=4 S LINEZOLID 4 S LEVOFLOXACIN >4 R OXACILLIN >2 R PENICILLIN >2 R* RIFAMPIN <=1 S TRIMETHOPRIM/SULFAMETHOXAZOLE >2/38 R TETRACYCLINE <=4 S VANCOMYCIN 1 S Unless otherwise specified, Testing Performed by: [facility] [address] [place] [address] For Inquires, the Physician may contact the Microbiology department at [phone] RUN DATE: 06/03/20 [facility] *LIVE* PAGE 1 RUN TIME: 704 Specimen Inquiry PATIENT: TAMARA FOFANA Toro ACCT: [id number] LOC: [address] [place] [address] U: [id number] AGE/SX: 55/M ROOM: 662 RE05/31/[address]: ANCELMO TODD III, DO : 1965 BED: 1 DIS: STATUS: ADM IN TLOC: SPEC #: [id number] GEOVANNA: 05/31/20 STATUS: COMP REQ #: [id number] RECD: 05/31/20-[address]: DANIEL PENA APRN SOURCE: BLOOD ENTR: 06/01/20-[address]: DAREK,STAFF [facility]: ORDERED: DANNY CULT - LC Procedure Result --------- --- BLOOD CULTURE LC Final Final FINAL ID= [STAPHYLOCOCCUS AUREUS (MRSA)] STAPHYLOCOCCUS AUREUS (MRSA) ANTIMICROBIAL SUSCEPTIBILITY Final Comment POS SHANON TYPE 38 STAPHYLOCOCCUS AUREUS (MRSA) ANTIBIOTIC RESULT INTERPRETATION AZITHROMYCIN <=2 S CLINDAMYCIN 0.5 S CEFOXITIN SCREEN >4 POS CIPROFLOXACIN >2 R CEFTAROLINE 1 S DAPTOMYCIN 1 S ERYTHROMYCIN <=0.25 S GENTAMICIN <=4 S LINEZOLID 4 S LEVOFLOXACIN >4 R OXACILLIN >2 R PENICILLIN >2 R* RIFAMPIN <=1 S TRIMETHOPRIM/SULFAMETHOXAZOLE >2/38 R TETRACYCLINE <=4 S VANCOMYCIN 1 S Unless otherwise specified, Testing Performed by: [address] [address] For Inquires, the Physician may contact the Microbiology department at [phone] Objective: Assessment: MRSA bacteremia 4 out of 4 bottles 05/31 POA Leukocytosis - s/p Dexamethasone 06/01 Left foot diabetic infection with gangrenous changes- S/p Left transmetatarsal guillotine amputation. Sharp excisional debridement of the left lower leg. 06/01 cult proteus vulgaris and staph aureus Peripheral arterial disease. Diabetes. Hypertension. Renal insufficiency. Plan: Plan of Care Continue daptomycin and Zosyn CK 72 on June 03 Local wound care as directed Follow-up labs and cults Follow-up blood cultures from 06/04/2020 are negative so far F/U ADAN Continue supportive care ESPERANZA VILLELA MD Jun 05, 2020 11:08
--- NOTE | 2020-06-05 11:19 | NUR ---
ZAIRE following for discharge planning. ZAIRE called and spoke with Linh from acute rehab. Referral received and is being reviewed by their medical scribe. If pt is clinically accepted they will submit for insurance authorization. Pt has [facility]. Pt will need a negative COVID result 72 hours prior to admission. Linh stated rooms are private and pt being MRSA positive won't be a barrier to discharge. ZAIRE following. Addendum: 06/06/20 at 0949 by PERLA TAI Pt transferred to .
--- NOTE | 2020-06-05 14:42 | PDOC ---
Provider Note Date of Service: DATE: 06/05/20 TIME: 14:38 Provider Note This is a 55 yo male who has DM and noted with left foot gangrene. He eventually had left metatarsal amputation and was noted with MRSA bacteremia. ADAN has been requested to rule out endocarditis. He is AOx3 and no respiratory distress. No known esophageal issues such as strictures or anomaly. ADAN, risks and benefits discussed and agreeable to proceed . Justifications for Admission Other Justification ALEE TUCKER APRN Jun 05, 2020 14:42
[2020-06-05] MEDS ORDERED: LIDOCAINE 2% PF 5 ML VIAL. ONE (14:58)
[2020-06-05] MEDS ORDERED: PROPOFOL 10 MG/ML (20ML) VIAL. IV ONE (14:58)
[2020-06-05] MEDS ORDERED: IV RINGERS,LACTATED 1000ML 1,000 ML IV SCH (15:00)
[2020-06-05] MEDS: NORMAL SALINE IV SCH (15:00)
[2020-06-05] MEDS: DAPTOMYCIN IV SCH (15:00)
[2020-06-05 16:18] VITALS: BP 165/89
--- NOTE | 2020-06-05 16:32 | CARD ---
MR#: [id number] Date of Study: 06/05/2020 Ordering Physician: ESPERANZA VILLELA, Referring Physician: ESPERANZA VILLELA, Tech: Moira Mooney, [facility] APPROVED REPORT EXAM: Transesophageal echocardiogram with color flow Doppler. INDICATION BACTEREMIA, MRSA RISK FACTORS Hypertension Hyperlipidemia Diabetes Reason For Test : Rule out endocarditis. PROCEDURE After obtaining informed consent, patient underwent transesophageal echo in the PACU. Type of Sedation : General Anesthesia Sedation was administered by Juan. Sedation was achieved with Propofol 80mg intravenously. Transesophageal probe was inserted and advanced into esophagus by Tyrell Stewart MD. The ADAN was performed without complications. Throughout the procedure, the blood pressure, pulse oximetry, cardiac rhythm, and rate were monitored . The patient tolerated the procedure without adverse effects. Recovery from general anesthesia was une ventful and vital signs were stable. LEFT VENTRICLE The left ventricle is normal size. There is borderline to mild concentric left ventricular hypertroph y. The left ventricular systolic function is normal and the ejection fraction is within normal range. The Ejection Fraction is 50-55%. There is normal LV segmental wall motion. No left ventricle thrombu s noted on this study. There is no ventricular septal defect visualized. RIGHT VENTRICLE The right ventricle is normal size. There is normal right ventricular wall thickness. The right ventr icular systolic function is normal. ATRIA The left atrium size is normal. The right atrium size is normal. The interatrial septum is intact wit h no evidence for an atrial septal defect or patent foramen ovale as noted on 2-D or Doppler imaging. There is no thrombus noted in the left atrial appendage. AORTIC VALVE The aortic valve is normal in structure and function. Doppler and Color Flow revealed no significant aortic regurgitation. There is no significant aortic valvular stenosis. MITRAL VALVE The mitral valve is normal in structure and function. There is no mitral valve stenosis. Doppler and Color-flow revealed trace mitral regurgitation. TRICUSPID VALVE The tricuspid valve is normal in structure and function. Doppler and Color Flow revealed no tricuspid valve regurgitation noted. There is no tricuspid valve stenosis. PULMONIC VALVE The pulmonary valve is normal in structure and function. Doppler and Color Flow revealed no pulmonic valvular regurgitation. There is no pulmonic valvular stenosis. GREAT VESSELS The aortic root is normal in size. The IVC is normal in size and collapses >50% with inspiration. Critical Notification Critical Value: No <Conclusion> The left ventricular systolic function is normal and the ejection fraction is within normal range. Th e Ejection Fraction is 50-55%. There is normal LV segmental wall motion. There is no thrombus noted in the left atrial appendage. No evidence of endocarditis on this study. Signed by : Jhony Stewart, Electronically Approved : 06/05/2020 16:31:43
--- NOTE | 2020-06-05 18:59 | NUR ---
Pt transferred to room [facility] at approx 1850 by jerad WOOD and ISRAEL Wing. Belongings sent with pt at time of transfer. Addendum: 06/05/20 at 1901 by YVAN GAN RN Edit to previous: transferred to room 414 via bed. Wound vac remains in place.
[2020-06-05 19:00] VITALS: BP 159/82
[2020-06-05] MEDS: ATORVASTATIN CALCIUM 40 MG TABLET. PO SCH (20:27)
[2020-06-05] MEDS: SERTRALINE 50 MG TABLET. PO SCH (20:28)
[2020-06-05] MEDS: amLODIPine BESYLATE 5 MG TABLET PO SCH (20:29)
[2020-06-05 23:04] VITALS: BP 165/86
[2020-06-06] MEDS: PIPERACILLIN/TAZOBACTAM 3.375 GM in IV NORMAL SALINE 50ML 50 ML IV SCH ×4 (00:08→17:11)
[2020-06-06] MEDS: HYDROcodone/APAP 5/325MG 1 TAB TABLET PO PRN ×2 (01:55→20:36)
[2020-06-06 03:00] VITALS: BP 138/64
[2020-06-06 07:15] VITALS: BP 165/82
--- NOTE | 2020-06-06 08:41 | PDOC ---
[employer] PROGRESS NOTE Date of Service DOS: DATE: 06/06/20 TIME: 08:37 Chief Complaint Chief Complaint A/P: MRSA bacteremia 4 out of 4 bottles 05/31 POA Sepsis Left foot diabetic infection with gangrenous changes.- Sharp excisional debridement of the left lower leg. 06/01 Peripheral vascular disease Left lower extremity DVT KAYCEE due to vasomotor nephropathy History of diabetes mellitus type 2 Hypertensive urgency Anemia of chronic inflammation Elevated alkaline phosphatase Severe protein malnutrition Plan: Continue empiric IV antibiotics Pending OR with vascular surgery Wound care consult PT OT Lovenox for DVT prophylaxis ADA diet Full code Discussed with RN and SW Disposition pending surgical debridement Surrogate decision maker is the History of Present Illness History of Present Illness Afebrile overnight. ADAN negative for vegetation. 06/04/2020 blood cultures thus far negative. He is feeling weak but in good spirits. Plan: We will need skilled rehab long-term antibiotics as well as wound VAC nonweightbearing on left foot. Will need PICC prior to discharge will await final cultures from 06/04 prior to having PICC inserted. 06/05: Afebrile. No complaints, breathing room air. Wound VAC in place, s/p transmetatarsal amputation. Continue IV antibiotics, per ID, and local wound care. ADAN neg for vegetation 06/04: Patient seen and evaluated s/p left transmetatarsal amputation. Afebrile, no acute vents overnight. He is to have wound VAC placed today. Continue IV antibiotics, per ID. 06/01: No acute events overnight. Pain is well controlled. T-max of 100.2 this morning. Patient has no concerns at this time. No concerns from nursing. Mr Reid is a 55-year-old male who has peripheral vascular disease. He has had diabetes for many years. He has never had any surgeries on his legs, but the left lower extremity he has got a severe diabetic wound. Vitals/I&O Vitals/I&O: Vital Signs Date Time Temp Pulse Resp B/P (MAP) Pulse Ox O2 Delivery O2 Flow Rate FiO2 06/06/20 07:15 97.6 69 20 165/82 (109) 95 Room Air 97.6 06/05/20 15:28 8.0 I & O 06/05/20 06/05/20 06/06/20 15:00 23:00 07:00 Intake Total 410 ml 200 ml 240 ml Output Total 200 ml 125 ml Balance 410 ml 0 ml 115 ml Physical Exam General: Alert, Oriented X3, Cooperative Heart: Regular rate, Normal S1, Normal S2 Abdomen: Normal bowel sounds, Soft Extremities: No clubbing, No cyanosis, Other (Left foot with wound VAC in place) Skin: Other (Left foot wounds are clean, dry, and intact, there is no evidence of purulent drainage or worsening cellulitis) Labs Labs: Laboratory Tests Test 06/05/20 10:56 06/05/20 16:31 06/05/20 20:42 06/06/20 07:01 Glucose (Fingerstick) 179 mg/dL (70-99) 137 mg/dL (70-99) 238 mg/dL (70-99) 184 mg/dL (70-99) Assessment and Plan Assessmemt and Plan Problems Medical Problems: (1) Acute on chronic renal failure Status: Acute (2) Anemia Status: Acute (3) Diabetic foot ulcer Status: Acute Comment Review of Relevant I have reviewed the following items deepa (where applicable) has been applied. Medications: Current Medications Medications (Trade) Dose Ordered Sig/Beverly Route PRN Reason Start Time Stop Time Status Last Admin Dose Admin Benzocaine (Hurricaine One) 2 spray 1X ONCE MM 06/05/20 10:45 06/05/20 10:46 DC 06/05/20 14:46 Lidocaine HCl (Viscous Lidocaine) 15 ml 1X ONCE SWSW 06/05/20 10:45 06/05/20 10:46 DC 06/05/20 14:46 Lidocaine HCl (Xylocaine 2% Topical 30gm Tube) 1 arlene 1X ONCE TP 06/05/20 10:45 06/05/20 10:46 DC 06/05/20 14:46 Ringer's Solution 1,000 ml @ 50 mls/hr Q20H IV 06/05/20 15:00 06/06/20 02:59 DC 06/05/20 15:05 Justifications for Admission Other Justification CHANTEL FUCHS MD Jun 06, 2020 08:41
--- NOTE | 2020-06-06 08:49 | PDOC ---
Infectious Disease Note Subjective: Subjective Patient without complaints Denies any postop Denies nausea/vomiting /F/C/S/D/SOA/rash Vital Signs: Vital Signs Vital Signs Date Time Temp Pulse Resp B/P (MAP) Pulse Ox O2 Delivery O2 Flow Rate FiO2 06/06/20 07:15 97.6 69 20 165/82 (109) 95 Room Air 97.6 06/05/20 15:28 8.0 Medications: Inpatient Meds: Medications reviewed. Labs: Lab Laboratory Tests Test 06/05/20 10:56 06/05/20 16:31 06/05/20 20:42 06/06/20 07:01 Glucose (Fingerstick) 179 mg/dL (70-99) 137 mg/dL (70-99) 238 mg/dL (70-99) 184 mg/dL (70-99) Micro Reviewed Objective: Assessment: MRSA bacteremia 4 out of 4 bottles 05/31 POA ADAN - June 05, 2020 Repeat blood cultures - June 04, 2020 so far Leukocytosis - s/p Dexamethasone 06/01 Left foot diabetic infection with gangrenous changes- S/p Left transmetatarsal guillotine amputation. Sharp excisional debridement of the left lower leg. 06/01 Cultures positive for polymicrobial organism including MRSA Peripheral arterial disease. Diabetes. Hypertension. Renal insufficiency. Left foot swab culture STAPHYLOCOCCUS AUREUS (MRSA) PROTEUS VULGARIS GROUP STREPTOCOCCUS MITIS/ORALIS GRP UNIDENTIFIED ORGANISM BACTEROIDES THETAIOTAOMICRON G FUSOBACTERIUM NUCLEATUM Plan: Plan of Care Continue daptomycin and Zosyn CK 72 on June 03 Local wound care as directed Follow-up labs and cults Follow-up blood cultures from 06/04/2020 are negative so far ADAN negative Continue supportive care ESPERANZA VILLELA MD Jun 06, 2020 08:49
[2020-06-06] MEDS: CARVEDILOL 12.5 MG TABLET. PO SCH ×2 (09:44→17:10)
[2020-06-06] MEDS: TAMSULOSIN 0.4 MG CAP.ER.24H. PO SCH (09:44)
[2020-06-06] MEDS: LACTOBACILLUS RHAMNOSUS GG 1 CAPSULE. PO SCH ×2 (09:44→20:36)
[2020-06-06] MEDS: INSULIN LISPRO 300 UNITS/3 ML VIAL. SQ SCH ×3 (09:53→17:12)
--- NOTE | 2020-06-06 10:35 | NUR ---
ZAIRE following. Discussed with RN, pt from home with , room kathy ashley. Per Giovana () note, referral sent to Acute Rehab. ZAIRE contacted Acute Rehab to determine acceptance decision - they have not made a decision yet, and stated they do not have a bed until at least Thursday. ZAIRE met with pt, pt agreeable to referral being sent to other Acute Rehab facilities, and does not have a preference. [facility] has beds, and accepts pt's insurance. Referral faxed to [facility], awaiting acceptance decision. ZAIRE will continue to follow. Addendum: 06/06/20 at 1303 by NEISHA TAI Pt accepted at [facility], pending insurance auth. Mauro with [facility] will come to meet with pt this afternoon. ZAIRE will continue to follow.
--- NOTE | 2020-06-06 10:36 | PDOC ---
Provider Note Date of Service: DATE: 06/06/20 TIME: 10:24 Provider Note Provider Note Vascular S: Patient awake this morning, eating little bits of his breakfast. He has no complaints. Denies pain to his left foot. I spoke with PT, patient has remained nonweightbearing on the left foot, will be Wheelchair-bound. He does not have a PICC line. O: Vital signs stable, afebrile. Awake, alert, no apparent distress, respirations nonlabored on room air. Left foot wound VAC dressing removed, lower leg bryson wound is clean to the wound bed, there is a very small superficial wound just proximal and lateral to this wound that is also clean. Left TMA wound bed is clean, wound edges are slightly macerated, there are no areas of fluctuance or drainage. Small clots in base of wound. [place] tissue throughout though. A/P: He is s/p open left transmetatarsal amputation. Continue wound vac therapy. Continue IV abx per ID. Continue PT, NWB left foot. Will need rehab at discharge, anticipated for Thursday. We are ok for discharge from [facility] once medically stable and arrangements made. Will need PICC. Will try to check wound again on Thursday with vac change prior to discharge if possible. He will follow up with us, as well as with wound care center. Justicifation of Admission Dx: Justifications for Admission: Justification of Admission Dx: N/A TENISHA RAI Jun 06, 2020 10:36
[2020-06-06 11:04] VITALS: BP 159/82
[2020-06-06] MEDS: ENOXAPARIN 40 MG/0.4 ML SYRINGE. SQ SCH (12:31)
[2020-06-06 15:04] VITALS: BP 161/84
--- NOTE | 2020-06-06 15:26 | NUR ---
Wound Care Wound Type/Assessment: Follow up to reapply NPWT to L TMA and L medial venous wound s/p I&D on 06/01/20. Vascular surgery removed vac today to assess wound. R anterior leg has stable, intact, dry scabs. LLE has one superficial open area that is pink and moist from a de-roofed blister documented as LLE #1. L TMA is bright red with exposed bone, tendon,and adipose. L medial lower leg wound (LLE #3 per documentation) granulated with adipose .No other open wounds noted on head to toe assessment. Treatment Recommendations/Plan: NPWT to LLE and L TMA wounds. Will be changed by wound care nurses on Thursday. Painted RLE VLU and LLE blister with skin prep and left PIN ATTACHER Education provided: Educated to turn often to avoid skin breakdown and to call RN if wound vac alarms Offloading surface/device: able to turn independently, Rooke boot in place Recommended Referrals/Tests: NA Discharge Recommendations for dressings: As above. Follow up in wound clinic after DC
[2020-06-06] MEDS: NORMAL SALINE IV SCH (16:01)
[2020-06-06] MEDS: DAPTOMYCIN IV SCH (16:01)
--- NOTE | 2020-06-06 18:06 | PATHOLOGY ---
[facility] Accession Number: [id number] . 01 Material submitted: . foot - LEFT TRANSMETATARSAL AMPUTATION. Modifiers: left . 01 Clinical history: . GANGENE INCISION: DEBRIDEMAIL LEFT FOOT LEFT FOOT DIABETIC ULCER . 02 Diagnosis: Left foot, transmetatarsal amputation: - Gangrenous necrosis of toes with acute cellulitis and acute osteomyelitis of first toe phalangeal bone. - Hall Monitor sections of first and fifth metatarsal bone margins negative for acute osteomyelitis. . (JPM:mml; 06/06/2020) [facility] 06/06/2020 1722 Local . 02 Electronically signed: . João Chin MD, Pathologist NPI- [id number] . 01 Gross description: . The specimen is received in formalin, labeled "Forrest Westfall transmetatarsal amputation". Received is a left forefoot amputation measuring 11.3 x 10.5 x 4.5 cm in greatest dimensions. All five bone margins are smooth and concave in appearance, consistent with disarticulation. The soft tissue extends up to 5.0 cm proximal to the bone margins. All five toes are present. The epidermal surface on the dorsal aspect is dusky davis-coello to davis-brown and sloughing to focally crusted in appearance. On the plantar aspect of the great toe, the entire surface is brown-black and partially mummified in appearance. . Also received within the specimen container are five metatarsals, of which metatarsal 1 through 4 are attached to each other and metatarsal 5 is detached. The distal end of the five metatarsal bones are smooth and convex in appearance, consistent with disarticulation. The opposite end of each of the metatarsal bones is blunt in appearance, consistent with transection. All transected bone margins appear grossly viable. The specimen is submitted representatively as follows: . A1 horizontal cross-section through toe 5, following decalcification A2 longitudinal cross-section through metatarsal 5, following decalcification A3 horizontal cross-section through toe 1, following decalcification A4 longitudinal cross-section through bone margin of toe 1, following decalcification A5 longitudinal cross-section through bone margin of metatarsal 1, following decalcification. . Gross photographs are taken. ([facility]; 06/05/2020) QAC/QAC 06/06/2020 1610 Local . 02 Pathologist provided ICD-10: M86.172, L03.032 . 02 CPT . 036913, 195144 Specimen Comment: A courtesy copy of this report has been sent to [phone] Specimen Comment: Report sent to Performed at: 01 [facility] [address], [place] [id number] MD Calos Soliz MD Phone: [phone] Performed at: 02 [facility] [address] [place], [place] [id number] MD João Chin MD Phone: [phone]
[2020-06-06 19:00] VITALS: BP 169/88
[2020-06-06] MEDS: amLODIPine BESYLATE 5 MG TABLET PO SCH (20:37)
[2020-06-06] MEDS: ATORVASTATIN CALCIUM 40 MG TABLET. PO SCH (20:38)
[2020-06-06] MEDS: SERTRALINE 50 MG TABLET. PO SCH (20:38)
[2020-06-06 23:00] VITALS: BP 154/78
[2020-06-07] MEDS: PIPERACILLIN/TAZOBACTAM 3.375 GM in IV NORMAL SALINE 50ML 50 ML IV SCH ×4 (00:01→17:05)
[2020-06-07] MEDS: HYDROcodone/APAP 5/325MG 1 TAB TABLET PO PRN ×3 (02:49→21:01)
[2020-06-07 03:00] VITALS: BP 154/84
[2020-06-07 07:00] VITALS: BP 157/77
[2020-06-07 07:20] LABS: BASO # 0.1 x10^3/uL (0.0-0.2); BASO % 1 % (0-3); EOS # 0.2 x10^3/uL (0.0-0.7); EOS % 2 % (0-3); HEMATOCRIT 24.3 % (39.0-53.0); HEMOGLOBIN 8.4 g/dL (13.0-17.5); LYMPH # 1.9 x10^3/uL (1.0-4.8); LYMPH % 21 % (24-48); MEAN CORPUSCULAR HEMOGLOBIN 26 pg (25-35); MEAN CORPUSCULAR HGB CONC 34 g/dL (31-37); MEAN CORPUSCULAR VOLUME 76 fL (79-100); MONO # 0.7 x10^3/uL (0.0-1.1); MONO % 8 % (0-9); NEUT % 68 % (31-73); PLATELET COUNT 414 x10^3/uL (140-400); WHITE BLOOD COUNT 8.8 x10^3/uL (4.0-11.0)
[2020-06-07 07:42] LABS: ALBUMIN 1.6 g/dL (3.4-5.0); ALBUMIN/GLOBULIN RATIO 0.3 (1.0-1.7); CALCIUM 8.2 mg/dL (8.5-10.1); CREATININE 1.4 mg/dL (0.7-1.3); GFR 63.2; POTASSIUM 4.6 mmol/L (3.5-5.1); TOTAL BILIRUBIN 0.7 mg/dL (0.2-1.0); TOTAL PROTEIN 7.4 g/dL (6.4-8.2)
[2020-06-07] MEDS: INSULIN LISPRO 300 UNITS/3 ML VIAL. SQ SCH ×3 (08:00→17:09)
--- NOTE | 2020-06-07 08:46 | PDOC ---
[employer] NOTE Date of Service DOS: DATE: 06/07/20 TIME: 08:45 Chief Complaint Chief Complaint A/P: MRSA bacteremia 4 out of 4 bottles 05/31 POA Sepsis Left foot diabetic infection with gangrenous changes.- Sharp excisional debridement of the left lower leg. 06/01 Peripheral vascular disease Left lower extremity DVT KAYCEE due to vasomotor nephropathy History of diabetes mellitus type 2 Hypertensive urgency Anemia of chronic inflammation Elevated alkaline phosphatase Severe protein malnutrition Plan: Continue empiric IV antibiotics Pending OR with vascular surgery Wound care consult PT OT Lovenox for DVT prophylaxis ADA diet Full code Discussed with RN and SW Disposition pending surgical debridement Surrogate decision maker is the History of Present Illness History of Present Illness Afebrile overnight. Repeat cultures NGTD in blood. Sitting in chair eating. Good suction with wound vac. Still very weak. Plan: We will need skilled rehab long-term antibiotics as well as wound VAC nonweightbearing on left foot. Will need PICC prior to discharge, ordered today after d/w ID 06/06: Afebrile overnight. ADAN negative for vegetation. 06/04/2020 blood cultures thus far negative. He is feeling weak but in good spirits. 06/05: Afebrile. No complaints, breathing room air. Wound VAC in place, s/p transmetatarsal amputation. Continue IV antibiotics, per ID, and local wound care. ADAN neg for vegetation 06/04: Patient seen and evaluated s/p left transmetatarsal amputation. Afebrile, no acute vents overnight. He is to have wound VAC placed today. Continue IV antibiotics, per ID. 06/01: No acute events overnight. Pain is well controlled. T-max of 100.2 this morning. Patient has no concerns at this time. No concerns from nursing. Mr Reid is a 55-year-old male who has peripheral vascular disease. He has had diabetes for many years. He has never had any surgeries on his legs, but the left lower extremity he has got a severe diabetic wound. Vitals/I&O Vitals/I&O: Vital Signs Date Time Temp Pulse Resp B/P (MAP) Pulse Ox O2 Delivery O2 Flow Rate FiO2 06/07/20 07:00 98.4 75 16 157/77 (103) 93 Room Air 98.4 I & O 06/06/20 06/06/2021 15:00 23:00 07:00 Intake Total 480 ml 0 ml 100 ml Output Total 850 ml Balance 480 ml 0 ml -750 ml Physical Exam General: Alert, Oriented X3, Cooperative Heart: Regular rate, Normal S1, Normal S2 Abdomen: Normal bowel sounds, Soft Extremities: No clubbing, No cyanosis, Other (Left foot with wound VAC in place) Skin: Other (Left foot wounds are clean, dry, and intact, there is no evidence of purulent drainage or worsening cellulitis) Labs Labs: Laboratory Tests Test 06/06/20 11:12 06/06/20 16:48 06/06/20 19:36 06/07/20 06:15 Glucose (Fingerstick) 202 mg/dL (70-99) 177 mg/dL (70-99) 139 mg/dL (70-99) White Blood Count 8.8 x10^3/uL (4.0-11.0) Red Blood Count 3.20 x10^6/uL (4.30-5.70) Hemoglobin 8.4 g/dL (13.0-17.5) Hematocrit 24.3 % (39.0-53.0) Mean Corpuscular Volume 76 fL (79-100) Mean Corpuscular Hemoglobin 26 pg (25-35) Mean Corpuscular Hemoglobin Concent 34 g/dL (31-37) Red Cell Distribution Width 18.0 % (11.5-14.5) Platelet Count 414 x10^3/uL (140-400) Neutrophils (%) (Auto) 68 % (31-73) Lymphocytes (%) (Auto) 21 % (24-48) Monocytes (%) (Auto) 8 % (0-9) Eosinophils (%) (Auto) 2 % (0-3) Basophils (%) (Auto) 1 % (0-3) Neutrophils # (Auto) 6.0 x10^3/uL (1.8-7.7) Lymphocytes # (Auto) 1.9 x10^3/uL (1.0-4.8) Monocytes # (Auto) 0.7 x10^3/uL (0.0-1.1) Eosinophils # (Auto) 0.2 x10^3/uL (0.0-0.7) Basophils # (Auto) 0.1 x10^3/uL (0.0-0.2) Sodium Level 135 mmol/L (136-145) Potassium Level 4.6 mmol/L (3.5-5.1) Chloride Level 101 mmol/L (98-107) Carbon Dioxide Level 27 mmol/L (21-32) Anion Gap 7 (6-14) Blood Urea Nitrogen 8 mg/dL (8-26) Creatinine 1.4 mg/dL (0.7-1.3) Estimated GFR (Cockcroft-Gault) 63.2 BUN/Creatinine Ratio 6 (6-20) Glucose Level 122 mg/dL (70-99) Calcium Level 8.2 mg/dL (8.5-10.1) Total Bilirubin 0.7 mg/dL (0.2-1.0) Aspartate Amino Transf (AST/SGOT) 19 U/L (15-37) Alanine Aminotransferase (ALT/SGPT) 16 U/L (16-63) Alkaline Phosphatase 126 U/L (46-116) Total Protein 7.4 g/dL (6.4-8.2) Albumin 1.6 g/dL (3.4-5.0) Albumin/Globulin Ratio 0.3 (1.0-1.7) Test 06/07/20 07:36 Glucose (Fingerstick) 131 mg/dL (70-99) Assessment and Plan Assessmemt and Plan Problems Medical Problems: (1) Acute on chronic renal failure Status: Acute (2) Anemia Status: Acute (3) Diabetic foot ulcer Status: Acute Comment Review of Relevant I have reviewed the following items deepa (where applicable) has been applied. Medications: Current Medications Medications (Trade) Dose Ordered Sig/Beverly Route PRN Reason Start Time Stop Time Status Last Admin Dose Admin Enoxaparin Sodium (Lovenox 40mg Syringe) 40 mg Q24H SQ 06/06/20 12:00 06/06/20 12:31 Justifications for Admission Other Justification CHANTEL FUCHS MD Jun 07, 2020 08:46
[2020-06-07] MEDS: CARVEDILOL 12.5 MG TABLET. PO SCH ×2 (08:53→17:05)
[2020-06-07] MEDS: TAMSULOSIN 0.4 MG CAP.ER.24H. PO SCH (08:53)
[2020-06-07] MEDS: LACTOBACILLUS RHAMNOSUS GG 1 CAPSULE. PO SCH ×2 (08:53→20:59)
--- NOTE | 2020-06-07 09:40 | NUR ---
SW following. Discussed with RN, pt from home with , room air, ada diet, COVID-19 negative. Pt accepted at [facility], pending insurance auth. Cultures still pending, pt will need a PICC line and abx determination prior to discharge. ZAIRE faxed updates to [facility]. ZAIRE will continue to follow. Addendum: 06/07/20 at 1605 by NEISHA TAI Insurance denied acute rehab, but stated they would approve SNF. Peer to peer phone number provided to Dr. Murillo ([phone]). There are two additional options for the denial - the patient can appeal himself, and a reconsideration request can be made with new clinicals. ZAIRE will continue to follow.
--- NOTE | 2020-06-07 10:04 | PDOC ---
Infectious Disease Note Subjective: Subjective Patient without complaints Denies any postop Denies nausea/vomiting /F/C/S/D/SOA/rash Vital Signs: Vital Signs Vital Signs Date Time Temp Pulse Resp B/P (MAP) Pulse Ox O2 Delivery O2 Flow Rate FiO2 06/07/20 08:56 Room Air 06/07/20 08:53 75 157/77 06/07/20 07:00 98.4 16 93 98.4 Physical Exam: PHYSICAL EXAM GENERAL: Alert, oriented gentleman, not in distress. HEENT: Both pupils are round and reacting. No conjunctival lesion. No lesion in the mouth. NECK: Supple, no JVP, no lymphadenopathy. LUNGS: Clear. HEART: S1, S2 regular. ABDOMEN: Soft, nontender, no organomegaly. EXTREMITIES: The right lower extremity does have some superficial skin breakdowns and scabs present. Left lower extremity - dressed NEUROLOGIC: The patient is alert, awake and appropriate. No focal neurologic deficit. SKIN: No rash Medications: Inpatient Meds: Medications reviewed. Labs: Lab Laboratory Tests Test 06/06/20 11:12 06/06/20 16:48 06/06/20 19:36 06/07/20 06:15 Glucose (Fingerstick) 202 mg/dL (70-99) 177 mg/dL (70-99) 139 mg/dL (70-99) White Blood Count 8.8 x10^3/uL (4.0-11.0) Red Blood Count 3.20 x10^6/uL (4.30-5.70) Hemoglobin 8.4 g/dL (13.0-17.5) Hematocrit 24.3 % (39.0-53.0) Mean Corpuscular Volume 76 fL (79-100) Mean Corpuscular Hemoglobin 26 pg (25-35) Mean Corpuscular Hemoglobin Concent 34 g/dL (31-37) Red Cell Distribution Width 18.0 % (11.5-14.5) Platelet Count 414 x10^3/uL (140-400) Neutrophils (%) (Auto) 68 % (31-73) Lymphocytes (%) (Auto) 21 % (24-48) Monocytes (%) (Auto) 8 % (0-9) Eosinophils (%) (Auto) 2 % (0-3) Basophils (%) (Auto) 1 % (0-3) Neutrophils # (Auto) 6.0 x10^3/uL (1.8-7.7) Lymphocytes # (Auto) 1.9 x10^3/uL (1.0-4.8) Monocytes # (Auto) 0.7 x10^3/uL (0.0-1.1) Eosinophils # (Auto) 0.2 x10^3/uL (0.0-0.7) Basophils # (Auto) 0.1 x10^3/uL (0.0-0.2) Sodium Level 135 mmol/L (136-145) Potassium Level 4.6 mmol/L (3.5-5.1) Chloride Level 101 mmol/L (98-107) Carbon Dioxide Level 27 mmol/L (21-32) Anion Gap 7 (6-14) Blood Urea Nitrogen 8 mg/dL (8-26) Creatinine 1.4 mg/dL (0.7-1.3) Estimated GFR (Cockcroft-Gault) 63.2 BUN/Creatinine Ratio 6 (6-20) Glucose Level 122 mg/dL (70-99) Calcium Level 8.2 mg/dL (8.5-10.1) Total Bilirubin 0.7 mg/dL (0.2-1.0) Aspartate Amino Transf (AST/SGOT) 19 U/L (15-37) Alanine Aminotransferase (ALT/SGPT) 16 U/L (16-63) Alkaline Phosphatase 126 U/L (46-116) Total Protein 7.4 g/dL (6.4-8.2) Albumin 1.6 g/dL (3.4-5.0) Albumin/Globulin Ratio 0.3 (1.0-1.7) Test 06/07/20 07:36 Glucose (Fingerstick) 131 mg/dL (70-99) Micro Reviewed Objective: Assessment: MRSA bacteremia 4 out of 4 bottles 05/31 POA ADAN - June 05, 2020 negative Repeat blood cultures - June 04, 2020 so far Leukocytosis - s/p Dexamethasone 06/01 Left foot diabetic infection with gangrenous changes- S/p Left transmetatarsal guillotine amputation. Sharp excisional debridement of the left lower leg. 06/01 Cultures positive for polymicrobial organism including MRSA Peripheral arterial disease. Diabetes. Hypertension. Renal insufficiency. Left foot swab culture STAPHYLOCOCCUS AUREUS (MRSA) PROTEUS VULGARIS GROUP STREPTOCOCCUS MITIS/ORALIS GRP UNIDENTIFIED ORGANISM BACTEROIDES THETAIOTAOMICRON G FUSOBACTERIUM NUCLEATUM Plan: Plan of Care Continue daptomycin and Zosyn Transition to daptomycin and Invanz for discharge for 4 to 6 weeks CK 72 on June 03 Local wound care as directed Follow-up labs and cults Follow-up blood cultures from 06/04/2020 are negative so far ADAN negative Okay to place PICC line Continue supportive care Discussed with nursing staff ESPERANZA VILLELA MD Jun 07, 2020 10:04
[2020-06-07 11:00] VITALS: BP 118/70
[2020-06-07] MEDS: ENOXAPARIN 40 MG/0.4 ML SYRINGE. SQ SCH (11:59)
--- NOTE | 2020-06-07 12:00 | NUR ---
Brandi held d/t PICC placement
[2020-06-07 15:00] VITALS: BP 124/68
[2020-06-07] MEDS: NORMAL SALINE IV SCH (15:31)
[2020-06-07] MEDS: DAPTOMYCIN IV SCH (15:31)
[2020-06-07 19:00] VITALS: BP 161/44
[2020-06-07] MEDS: SERTRALINE 50 MG TABLET. PO SCH (20:59)
[2020-06-07] MEDS: ATORVASTATIN CALCIUM 40 MG TABLET. PO SCH (20:59)
[2020-06-07] MEDS: amLODIPine BESYLATE 5 MG TABLET PO SCH (21:00)
[2020-06-07 23:00] VITALS: BP 159/81
[2020-06-08] MEDS: PIPERACILLIN/TAZOBACTAM 3.375 GM in IV NORMAL SALINE 50ML 50 ML IV SCH ×4 (00:10→17:44)
[2020-06-08 03:00] VITALS: BP 173/94
[2020-06-08] MEDS: HYDROcodone/APAP 5/325MG 1 TAB TABLET PO PRN ×3 (04:05→16:45)
[2020-06-08 07:00] VITALS: BP 163/87
[2020-06-08] MEDS: INSULIN LISPRO 300 UNITS/3 ML VIAL. SQ SCH ×3 (08:00→17:51)
--- NOTE | 2020-06-08 09:06 | PDOC ---
Provider Note Date of Service: DATE: 06/08/20 TIME: 09:04 Provider Note Provider Note Vascular S: Patient seen and examined in room. He has no complaints. Denies pain to his left foot. O: Vital signs stable, afebrile. Awake, alert, no apparent distress, respirations nonlabored on room air. Left foot wound VAC dressing in place and functioning, minimal output in canister. Periwound intact. A/P: He is s/p open left transmetatarsal amputation. Continue wound vac therapy. Continue IV abx per ID. Continue PT, NWB left foot. Recommend rehab at discharge, placement pending. We are ok for discharge from [facility] once medically stable and arrangements made. Follow up in 2-3 weeks with us and regular follow up in [facility]. Justicifation of Admission Dx: Justifications for Admission: Justification of Admission Dx: N/A CLEVE VASQUEZ APRN Jun 08, 2020 09:06
--- NOTE | 2020-06-08 09:44 | NUR ---
SW following. Discussed with RN, pt from home with , room air, ada diet, COVID-19 negative. Insurance denied Acute Rehab (but will approve SNF), Dr. Murillo does not intend on doing the peer to peer. ZAIRE met with pt to discuss SNF, pt agreeable, does not have a preference where. ZAIRE phoned and faxed referral to [facility] (discussed IV abx with them). Pt will need a repeat COVID PCR to go to [facility], as his last COVID was over 72 hours ago. Awaiting acceptance decision. Pt getting PICC line placed today. ZAIRE will continue to follow. Addendum: 06/08/20 at 1121 by NEISHA TAI [facility] are not in network with pt's insurance. ZAIRE spoke with [facility], they are in network. Referral faxed to [facility], awaiting acceptance decision. Addendum: 06/08/20 at 1216 by NEISHA TAI Pt accepted at [facility] for SNF, pending insurance auth. Dr. Murillo notified. ZAIRE will continue to follow. Addendum: 06/08/20 at 1449 by NEISHA TAI Insurance approved SNF. Pt getting PICC line now. Stretcher transportation arranged by [facility] for 1899 pickup, awaiting discharge orders. ZAIRE spoke with pt's , Ana ROTH acceptance etc. ISRAEL notified. Addendum: 06/08/20 at 1602 by NEISHA TAI Discharge orders faxed to [facility]. Transportation scheduled for 1899. ISRAEL notified.
--- NOTE | 2020-06-08 09:50 | PDOC ---
Infectious Disease Note Vital Signs: Vital Signs Vital Signs Date Time Temp Pulse Resp B/P (MAP) Pulse Ox O2 Delivery O2 Flow Rate FiO2 06/08/20 07:00 98.4 67 16 163/87 (112) 96 Room Air 98.4 Medications: Inpatient Meds: Medications reviewed. Labs: Lab Laboratory Tests Test 06/07/20 11:30 06/07/20 17:00 06/07/20 20:46 06/08/20 07:23 Glucose (Fingerstick) 213 mg/dL (70-99) 186 mg/dL (70-99) 217 mg/dL (70-99) 136 mg/dL (70-99) Micro Reviewed Objective: Assessment: MRSA bacteremia 4 out of 4 bottles 05/31 POA ADAN - June 05, 2020 negative Repeat blood cultures - June 04, 2020 so far Leukocytosis - s/p Dexamethasone 06/01 Left foot diabetic infection with gangrenous changes- S/p Left transmetatarsal guillotine amputation. Sharp excisional debridement of the left lower leg. 06/01 Cultures positive for polymicrobial organism including MRSA Peripheral arterial disease. Diabetes. Hypertension. Renal insufficiency. Left foot swab culture STAPHYLOCOCCUS AUREUS (MRSA) PROTEUS VULGARIS GROUP STREPTOCOCCUS MITIS/ORALIS GRP UNIDENTIFIED ORGANISM BACTEROIDES THETAIOTAOMICRON G FUSOBACTERIUM NUCLEATUM Plan: Plan of Care Duplicate ESPERANZA VILLELA MD Jun 08, 2020 09:50
[2020-06-08] MEDS: LACTOBACILLUS RHAMNOSUS GG 1 CAPSULE. PO SCH (09:59)
[2020-06-08] MEDS: TAMSULOSIN 0.4 MG CAP.ER.24H. PO SCH (09:59)
[2020-06-08] MEDS: CARVEDILOL 12.5 MG TABLET. PO SCH ×2 (09:59→17:45)
[2020-06-08 11:00] VITALS: BP 136/70
--- NOTE | 2020-06-08 11:09 | PDOC ---
Infectious Disease Note Subjective: Subjective Patient without complaints Vital Signs: Vital Signs Vital Signs Date Time Temp Pulse Resp B/P (MAP) Pulse Ox O2 Delivery O2 Flow Rate FiO2 06/08/20 10:02 Room Air 06/08/20 09:59 67 163/87 06/08/20 07:00 98.4 16 96 98.4 Physical Exam: PHYSICAL EXAM GENERAL: Alert, oriented gentleman, not in distress. HEENT: Both pupils are round and reacting. No conjunctival lesion. No lesion in the mouth. NECK: Supple, no JVP, no lymphadenopathy. LUNGS: Clear. HEART: S1, S2 regular. ABDOMEN: Soft, nontender, no organomegaly. EXTREMITIES: The right lower extremity does have some superficial skin breakdowns and scabs present. Left lower extremity - dressed NEUROLOGIC: The patient is alert, awake and appropriate. No focal neurologic deficit. SKIN: No rash Medications: Inpatient Meds: Medications reviewed. Labs: Lab Laboratory Tests Test 06/07/20 11:30 06/07/20 17:00 06/07/20 20:46 06/08/20 07:23 Glucose (Fingerstick) 213 mg/dL (70-99) 186 mg/dL (70-99) 217 mg/dL (70-99) 136 mg/dL (70-99) Micro Reviewed STAPHYLOCOCCUS AUREUS (MRSA) PROTEUS VULGARIS GROUP STREPTOCOCCUS MITIS/ORALIS GRP UNIDENTIFIED ORGANISM BACTEROIDES THETAIOTAOMICRON G FUSOBACTERIUM NUCLEATUM Objective: Assessment: MRSA bacteremia 4 out of 4 bottles 05/31 POA ADAN - June 05, 2020 negative Repeat blood cultures - June 04, 2020 so far Leukocytosis - s/p Dexamethasone 06/01 Left foot diabetic infection with gangrenous changes- S/p Left transmetatarsal guillotine open amputation. Sharp excisional debridement of the left lower leg. 06/01 Cultures positive for polymicrobial organism including MRSA, see below Peripheral arterial disease. Diabetes. Hypertension. Renal insufficiency. Left foot swab culture STAPHYLOCOCCUS AUREUS (MRSA) PROTEUS VULGARIS GROUP STREPTOCOCCUS MITIS/ORALIS GRP UNIDENTIFIED ORGANISM BACTEROIDES THETAIOTAOMICRON G FUSOBACTERIUM NUCLEATUM Plan: Plan of Care Continue daptomycin and Zosyn ADAN negative PICC line Local wound /vac care as directed Follow-up labs and cults Follow-up blood cultures from 06/04/2020 are negative so far Prescription in [facility] Social service to assist with discharge antibiotic Continue supportive care Follow-up in ID clinic as scheduled Discussed with nursing staff ESPERANZA VILLELA MD Jun 08, 2020 11:09
[2020-06-08] MEDS: ENOXAPARIN 40 MG/0.4 ML SYRINGE. SQ SCH (12:00)
--- NOTE | 2020-06-08 13:54 | PDOC ---
[employer] PROGRESS NOTE Date of Service DOS: DATE: 06/08/20 TIME: 13:53 Chief Complaint Chief Complaint A/P: MRSA bacteremia 4 out of 4 bottles 05/31 POA Sepsis Left foot diabetic infection with gangrenous changes.- Sharp excisional debridement of the left lower leg. 06/01 Peripheral vascular disease Left lower extremity DVT KAYCEE due to vasomotor nephropathy History of diabetes mellitus type 2 Hypertensive urgency Anemia of chronic inflammation Elevated alkaline phosphatase Severe protein malnutrition Plan: Continue empiric IV antibiotics Pending OR with vascular surgery Wound care consult PT OT Lovenox for DVT prophylaxis ADA diet Full code Discussed with RN and SW Disposition pending surgical debridement Surrogate decision maker is the History of Present Illness History of Present Illness Afebrile overnight. Laying in bed. Wound vac working well. Awaiting PICC. Plan: We will need skilled rehab long-term antibiotics as well as wound VAC nonweightbearing on left foot. Will need PICC prior to discharge, ordered today after d/w ID 06/07: Afebrile overnight. Repeat cultures NGTD in blood. Sitting in chair eating. Good suction with wound vac. Still very weak. 06/06: Afebrile overnight. ADAN negative for vegetation. 06/04/2020 blood cultures thus far negative. He is feeling weak but in good spirits. 06/05: Afebrile. No complaints, breathing room air. Wound VAC in place, s/p transmetatarsal amputation. Continue IV antibiotics, per ID, and local wound care. ADAN neg for vegetation 06/04: Patient seen and evaluated s/p left transmetatarsal amputation. Afebrile, no acute vents overnight. He is to have wound VAC placed today. Continue IV an tibiotics, per ID. 06/01: No acute events overnight. Pain is well controlled. T-max of 100.2 this morning. Patient has no concerns at this time. No concerns from nursing. Mr Reid is a 55-year-old male who has peripheral vascular disease. He has had diabetes for many years. He has never had any surgeries on his legs, but the left lower extremity he has got a severe diabetic wound. Vitals/I&O Vitals/I&O: Vital Signs Date Time Temp Pulse Resp B/P (MAP) Pulse Ox O2 Delivery O2 Flow Rate FiO2 06/08/20 11:00 98.4 62 16 136/70 (92) 97 Room Air 98.4 I & O 06/07/20 06/07/20 06/08/20 15:00 23:00 07:00 Intake Total 120 ml Balance 120 ml Physical Exam Physical Exam: GENERAL: Alert, oriented gentleman, not in distress. HEENT: Both pupils are round and reacting. No conjunctival lesion. No lesion in the mouth. NECK: Supple, no JVP, no lymphadenopathy. LUNGS: Clear. HEART: S1, S2 regular. ABDOMEN: Soft, nontender, no organomegaly. EXTREMITIES: The right lower extremity does have some superficial skin breakdowns and scabs present. Left lower extremity - dressed NEUROLOGIC: The patient is alert, awake and appropriate. No focal neurologic deficit. SKIN: No rash General: Alert, Oriented X3, Cooperative Heart: Regular rate, Normal S1, Normal S2 Abdomen: Normal bowel sounds, Soft Extremities: No clubbing, No cyanosis, Other (Left foot with wound VAC in place) Skin: Other (Left foot wounds are clean, dry, and intact, there is no evidence of purulent drainage or worsening cellulitis) Labs Labs: Laboratory Tests Test 06/07/20 17:00 06/07/20 20:46 06/08/20 07:23 06/08/20 11:07 Glucose (Fingerstick) 186 mg/dL (70-99) 217 mg/dL (70-99) 136 mg/dL (70-99) 222 mg/dL (70-99) Assessment and Plan Assessmemt and Plan Problems Medical Problems: (1) Acute on chronic renal failure Status: Acute (2) Anemia Status: Acute (3) Diabetic foot ulcer Status: Acute Comment Review of Relevant I have reviewed the following items deepa (where applicable) has been applied. Justifications for Admission Other Justification CHANTEL FUCHS MD Jun 08, 2020 13:54
[2020-06-08] MEDS ORDERED: LACT1CAP19 PO (15:34)
[2020-06-08] MEDS ORDERED: ERTA1VIA16 IJ (15:34)
[2020-06-08] MEDS ORDERED: HYDR-2761 PO (15:34)
[2020-06-08] MEDS ORDERED: DAPT350V IV (15:34)
--- NOTE | 2020-06-08 15:39 | SNU/HH DC ---
DISCHARGE ORDERS DISCHARGE INFORMATION: DISCHARGE DATE: Jun 08, 2020 FINAL DIAGNOSIS Problems Medical Problems: (1) Acute on chronic renal failure Status: Acute (2) Anemia Status: Acute (3) Diabetic foot ulcer Status: Acute CONDITION ON DISCHARGE: Stable CODE STATUS: Code Status: Full DETENTION: SNF STAY <30 DAYS: Yes POST DISCHARGE ORDERS: ACTIVITY ORDERS: Resume previous activity WEIGHT BEARING STATUS: Other, see below (Non-weightbearing left foot) DIET AFTER DISCHARGE: ADA CHECKS AFTER DISCHARGE: CHECKS AFTER DISCHARGE: Check blood press - daily, Check blood sugar, ac/hs FOLLOW-UP: Additional Instructions: Dr. Crews - infectious disease follow up 2 weeks: call to schedule Daptomycin 6mg/kg IV daily for 4-6 weeks Invanz 1g IV daily for 4-6 weeks Q weekly CBC/BUN/Cr/CPK/ESR/CRP, fax results to TREATMENT/EQUIPMENT ORDERS: INFUSION EQUIPMENT NEEDED: PICC Line Physical Therapy For: Evalulation/Treatment Occupational Therapy For: Evaluation/Treatment DISCHARGE MEDICATIONS: Home Meds Active Scripts Ertapenem Sodium (INVANZ) 1 Gm Vial, 1 GM IJ DAILY for Abscess for 42 Days, #42 EACH Prov:CHANTEL FUCHS MD 06/08/20 Lactobacillus Rhamnosus Gg (CULTURELLE) 1 Each Cap.sprink, 1 CAP PO BID for Diarrhea for 30 Days, #60 CAP Prov:CHANTEL FUCHS MD 06/08/20 Hydrocodone Bit/Acetaminophen (HYDROCODONE-APAP 5-325 ) 1 Tab Tablet, 1 TAB PO PRN Q6HRS PRN for MODERATE PAIN 4-6 for 6 Days, #18 TAB Prov:CHANTEL FUCHS MD 06/08/20 Daptomycin (Daptomycin) 350 Mg Vial, 610 MG IV DAILY for Abscess for 42 Days, #74 EACH Prov:CHANTEL FUCHS MD 06/08/20 Reported Medications Amlodipine Besylate (AMLODIPINE BESYLATE) 5 Mg Tablet, 5 MG PO HS for HTN, TAB 05/31/20 Carvedilol (CARVEDILOL) 25 Mg Tablet, 25 MG PO BIDWMEALS for CARDIAC, TAB 05/31/20 Atorvastatin Calcium (ATORVASTATIN CALCIUM) 40 Mg Tablet, 80 MG PO HS for FOR CHOLESTEROL, #30 TAB 0 Refills 05/31/20 Sertraline Hcl (ZOLOFT) 100 Mg Tablet, 100 MG PO HS for ANTI-DEPRESSANT, TAB 0 Refills 05/31/20 Tamsulosin Hcl (FLOMAX) 0.4 Mg Cap.er.24h, 0.4 MG PO DAILY for BPH, TAB 05/31/20 Sitagliptin Phosphate (JANUVIA) 100 Mg Tablet, 100 MG PO DAILY for DM, TAB 05/31/20 Discontinued Reported Medications Metformin Hcl (METFORMIN HCL) 1,000 Mg Tablet, 1000 MG PO BIDWMEALS for DM, TAB 05/31/20 CHANTEL FUCHS MD Jun 08, 2020 15:39
--- NOTE | 2020-06-08 15:42 | PDOC3 ---
Discharge Summary Visit Information Date of Admission: May 31, 2020 Date of Discharge: Jun 08, 2020 Admitting Diagnosis: Left diabetic foot ulcer Final Diagnosis Problems Medical Problems: (1) Acute on chronic renal failure Status: Acute (2) Anemia Status: Acute (3) Diabetic foot ulcer Status: Acute Brief Hospital Course Allergies Allergies Coded Allergies Type Severity Reaction Last Updated Verified I S O L A T I O N *CONTACT* Allergy Unknown 06/04/20 Yes No Known Medication Allergies Allergy Unknown 06/04/20 Yes Vital Signs Vital Signs Date Time Temp Pulse Resp B/P (MAP) Pulse Ox O2 Delivery O2 Flow Rate FiO2 06/08/20 11:02 Room Air 06/08/20 11:00 98.4 62 16 136/70 (92) 97 98.4 Lab Results Laboratory Tests Test 06/06/20 16:48 06/06/20 19:36 06/07/20 06:15 06/07/20 07:36 Glucose (Fingerstick) 177 mg/dL (70-99) 139 mg/dL (70-99) 131 mg/dL (70-99) White Blood Count 8.8 x10^3/uL (4.0-11.0) Red Blood Count 3.20 x10^6/uL (4.30-5.70) Hemoglobin 8.4 g/dL (13.0-17.5) Hematocrit 24.3 % (39.0-53.0) Mean Corpuscular Volume 76 fL (79-100) Mean Corpuscular Hemoglobin 26 pg (25-35) Mean Corpuscular Hemoglobin Concent 34 g/dL (31-37) Red Cell Distribution Width 18.0 % (11.5-14.5) Platelet Count 414 x10^3/uL (140-400) Neutrophils (%) (Auto) 68 % (31-73) Lymphocytes (%) (Auto) 21 % (24-48) Monocytes (%) (Auto) 8 % (0-9) Eosinophils (%) (Auto) 2 % (0-3) Basophils (%) (Auto) 1 % (0-3) Neutrophils # (Auto) 6.0 x10^3/uL (1.8-7.7) Lymphocytes # (Auto) 1.9 x10^3/uL (1.0-4.8) Monocytes # (Auto) 0.7 x10^3/uL (0.0-1.1) Eosinophils # (Auto) 0.2 x10^3/uL (0.0-0.7) Basophils # (Auto) 0.1 x10^3/uL (0.0-0.2) Sodium Level 135 mmol/L (136-145) Potassium Level 4.6 mmol/L (3.5-5.1) Chloride Level 101 mmol/L (98-107) Carbon Dioxide Level 27 mmol/L (21-32) Anion Gap 7 (6-14) Blood Urea Nitrogen 8 mg/dL (8-26) Creatinine 1.4 mg/dL (0.7-1.3) Estimated GFR (Cockcroft-Gault) 63.2 BUN/Creatinine Ratio 6 (6-20) Glucose Level 122 mg/dL (70-99) Calcium Level 8.2 mg/dL (8.5-10.1) Total Bilirubin 0.7 mg/dL (0.2-1.0) Aspartate Amino Transf (AST/SGOT) 19 U/L (15-37) Alanine Aminotransferase (ALT/SGPT) 16 U/L (16-63) Alkaline Phosphatase 126 U/L (46-116) Total Protein 7.4 g/dL (6.4-8.2) Albumin 1.6 g/dL (3.4-5.0) Albumin/Globulin Ratio 0.3 (1.0-1.7) Test 06/07/20 11:30 06/07/20 17:00 06/07/20 20:46 06/08/20 07:23 Glucose (Fingerstick) 213 mg/dL (70-99) 186 mg/dL (70-99) 217 mg/dL (70-99) 136 mg/dL (70-99) Test 06/08/20 11:07 06/08/20 14:00 Glucose (Fingerstick) 222 mg/dL (70-99) Prothrombin Time 15.0 SEC (11.7-14.0) Prothromb Time International Ratio 1.2 (0.8-1.1) Laboratory Tests Test 06/07/20 17:00 06/07/20 20:46 06/08/20 07:23 06/08/20 11:07 Glucose (Fingerstick) 186 mg/dL (70-99) 217 mg/dL (70-99) 136 mg/dL (70-99) 222 mg/dL (70-99) Test 06/08/20 14:00 Prothrombin Time 15.0 SEC (11.7-14.0) Prothromb Time International Ratio 1.2 (0.8-1.1) Brief Hospital Course Mr Reid is a 55-year-old male who has peripheral vascular disease. He has had diabetes for many years. He has never had any surgeries on his legs, but the left lower extremity he has got a severe diabetic wound. 06/07: Afebrile overnight. Repeat cultures NGTD in blood. Sitting in chair eating. Good suction with wound vac. Still very weak. 06/06: Afebrile overnight. ADAN negative for vegetation. 06/04/2020 blood cultures thus far negative. He is feeling weak but in good spirits. 06/05: Afebrile. No complaints, breathing room air. Wound VAC in place, s/p transmetatarsal amputation. Continue IV antibiotics, per ID, and local wound care. ADAN neg for vegetation 06/04: Patient seen and evaluated s/p left transmetatarsal amputation. Afebrile, no acute vents overnight. He is to have wound VAC placed today. Continue IV antibiotics, per ID. 06/01: No acute events overnight. Pain is well controlled. T-max of 100.2 this morning. Patient has no concerns at this time. No concerns from nursing. Afebrile overnight. Laying in bed. Wound vac working well. S/p PICC. Plan: We will need skilled rehab long-term antibiotics as well as wound VAC nonweightbearing on left foot. Will need PICC prior to discharge, ordered today after d/w ID Daptomycin 6 mg/kg daily for 4 to 6 weeks Invanz 1 g IV daily weekly CBC BUN/creatinine CPK ESR CRP follow-up with ID and 2 weeks follow-up with vascular surgery in 3 weeks. Discussed with pathology the bone margins were clear of osteomyelitis. Consults: ID, vascular surgery Problem list: MRSA bacteremia 4 out of 4 bottles 05/31 POA - daptomycin IV Sepsis Left foot diabetic infection with gangrenous changes.- Sharp excisional debridement of the left lower leg. 06/01 Peripheral vascular disease Left lower extremity DVT - eliquis on d/c KAYCEE due to vasomotor nephropathy History of diabetes mellitus type 2 Hypertensive urgency Anemia of chronic inflammation Elevated alkaline phosphatase Severe protein malnutrition Plan: Continue empiric IV antibiotics Pending OR with vascular surgery Wound care consult PT OT Lovenox for DVT prophylaxis ADA diet Full code Discussed with RN and SW Disposition pending surgical debridement Surrogate decision maker is the Greater than 30 minutes spent on d/c to SNF Discharge Information Condition at Discharge: Improved Follow Up: Weeks (1) Disposition/Orders: D/C to Another Facility Scheduled Amlodipine Besylate (Amlodipine Besylate) 5 Mg Tablet, 5 MG PO HS for HTN, (Reported) Entered as Reported by: FELISA MA on 05/31/202306 Last Action: Continued on 06/02/201146 by BREA ASKEW Atorvastatin Calcium (Atorvastatin Calcium) 40 Mg Tablet, 80 MG PO HS for FOR CHOLESTEROL, #30 Ref 0 (Reported) Entered as Reported by: FELISA MA on 05/31/202306 Last Action: Continued on 06/02/201146 by BREA ASKEW Carvedilol (Carvedilol) 25 Mg Tablet, 25 MG PO BIDWMEALS for CARDIAC, (Reported) Entered as Reported by: FELISA MA on 05/31/202306 Last Action: Converted on 06/02/201146 by BREA ASKEW Daptomycin (Daptomycin) 350 Mg Vial, 610 MG IV DAILY for Abscess for 42 Days, #74 Prescribed by: CHANTEL FUCHS MD on 06/08/20 1534 Ertapenem Sodium (Invanz) 1 Gm Vial, 1 GM IJ DAILY for Abscess for 42 Days, #42 Prescribed by: CHANTEL FUCHS MD on 06/08/20 1534 Lactobacillus Rhamnosus Gg (Culturelle) 1 Each Cap.sprink, 1 CAP PO BID for Diarrhea for 30 Days, #60 Prescribed by: CHANTEL FUCHS MD on 06/08/20 1534 Sertraline Hcl (Zoloft) 100 Mg Tablet, 100 MG PO HS for ANTI-DEPRESSANT, Ref 0 (Reported) Entered as Reported by: FELISA MA on 05/31/202306 Last Action: Converted on 06/02/201146 by BREA ASKEW Sitagliptin Phosphate (Januvia) 100 Mg Tablet, 100 MG PO DAILY for DM, (Reported) Entered as Reported by: FELISA MA on 05/31/202306 Last Action: HELD on 06/02/201146 by BREA ASKEW Tamsulosin Hcl (Flomax) 0.4 Mg Cap.er.24h, 0.4 MG PO DAILY for BPH, (Reported) Entered as Reported by: FELISA MA on 05/31/202306 Last Action: Continued on 06/02/201146 by BREA ASKEW Scheduled PRN Hydrocodone Bit/Acetaminophen (Hydrocodone-Apap 5-325 ) 1 Tab Tablet, 1 TAB PO PRN Q6HRS PRN for MODERATE PAIN 4-6 for 6 Days, #18 Prescribed by: CHANTEL FUCHS MD on 06/08/20 1534 Discontinued Medications Metformin Hcl (Metformin Hcl) 1,000 Mg Tablet, 1,000 MG PO BIDWMEALS for DM, (Reported) Entered as Reported by: FELISA MA on 05/31/202306 Last Action: HELD on 06/02/201146 by BREA ASKEW Justicifation of Admission Dx: Justifications for Admission: Justification of Admission Dx: N/A CHANTEL FUCHS MD Jun 08, 2020 15:42
--- NOTE | 2020-06-08 15:54 | RAD ---
Procedure: Upper extremity PICC line placement Clinical Indication: Adult male requiring central venous access Sedation: Local anesthesia only was provided Antibiotics: None Fluoro Time: 0.6 minutes, images: 1 Contrast: None Sterility: All elements of maximal sterile barrier technique including the use of a cap, mask, sterile gown, sterile gloves, large sterile sheet, appropriate hand hygiene, and 2% chlorhexidine for cutaneous antisepsis (or acceptable alternative antiseptic per current guidelines) were followed for this procedure. Consent: The procedure was explained in its entirety to the patient or the patients designated medical detail representative by a member of the treatment team, including a discussion of the risks, benefits and commonly accepted alternatives to the procedure, as well as the expected consequences of no therapy whatsoever. Discussion of the risks included, but was not limited to, those that are most frequent and those that are rare but possibly severe or life-threatening, as well as the possibility of unforeseen complications. Technique and Findings: Following informed consent, the patient was prepped and draped in the usual sterile fashion. Ultrasound interrogation of the right arm revealed patency and compressibility of the right basilic vein. A hard copy ultrasound image was recorded. 1% Lidocaine was used to achieve local anesthesia and a 21-gauge micropuncture needle was used to gain access to the targeted vein. The needle was exchanged over wire for a 5 Vietnamese peel-away sheath which was used to deploy a PICC line under fluoroscopic guidance such that the distal tip resided at the cavoatrial junction. The catheter flushed and aspirated with ease and was sutured to the skin. Complications: No immediate Impression: 1. Ultrasound guided PICC line placement as described.
--- NOTE | 2020-06-08 16:10 | NUR ---
Wound Care Wound Type/Assessment: Notified that pt will d/c today to [facility]. Wound vacs to L calf and L TMA removed, wounds cleaned, measured and photographed for d/c. TMA is clean, beefy red, with significant granulation tissue present throughout, minimal bone and tendon exposed, dorsal foot with purplish discoloration measuring 4.5 x 3.2 cm. Left medial lower leg wound is well granulated and clean, beefy red, periwound intact. Treatment Recommendations/Plan: Continue wound vac to both wounds until seen at f/u by Vascular Surgeon for updated orders. Wounds redressed with Xeroform gauze, ABDs and kerlix, Rooke boot reapplied. Education provided: to pt and re: benefits of vac therapy, wound healing and off-loading. Offloading surface/device: L-NWB and Rooke boot in place Recommended Referrals/Tests: n/a Discharge Recommendations for dressings: continue vac therapy as ordered by Vascular MD *Pt may follow up at [facility] upon d/c from [facility].
[2020-06-08] MEDS: DAPTOMYCIN IV SCH (16:46)
[2020-06-08] MEDS: NORMAL SALINE IV SCH (16:46)
[2020-06-08 19:00] VITALS: BP 169/91
--- NOTE | 2020-06-08 19:41 | NUR ---
Pt discharging to [facility]. Report given to Carlyn. IV removed. PICC in place. Pt belongings were packed by CLINICAL SERVICES ASSISTANT.
== END 2020-06-08 21:00 | DRG 853 ==
LOC: ER 17:12 → 6 SOUTH 18:30 → 4 NORTH 06-05 19:00
PROVIDERS: ADMIT Internal Medicine; ATTEND Internal Medicine
PROC: 0Y6N0Z9 Detachment at Left Foot, Partial 1st Ray, Open Approach (ICD-10-PCS; 2020-06-01)
PROC: 0Y6N0ZB Detachment at Left Foot, Partial 2nd Ray, Open Approach (ICD-10-PCS; 2020-06-01)
PROC: 0Y6N0ZC Detachment at Left Foot, Partial 3rd Ray, Open Approach (ICD-10-PCS; 2020-06-01)
PROC: 0Y6N0ZD Detachment at Left Foot, Partial 4th Ray, Open Approach (ICD-10-PCS; 2020-06-01)
PROC: 0Y6N0ZF Detachment at Left Foot, Partial 5th Ray, Open Approach (ICD-10-PCS; 2020-06-01)
PROC: 0QBP0ZZ Excision of Left Metatarsal, Open Approach (ICD-10-PCS; principal; 2020-06-01 15:00)
PROC: B24BZZ4 Ultrasonography of Heart with Aorta, Transesophageal (ICD-10-PCS; 2020-06-05)
PROC: 02HV33Z Insertion of Infusion Device into Superior Vena Cava, Percutaneous Approach (ICD-10-PCS; 2020-06-08)
PROC: B5181ZA Fluoroscopy of Superior Vena Cava using Low Osmolar Contrast, Guidance (ICD-10-PCS; 2020-06-08)
PROC: B548ZZA Ultrasonography of Superior Vena Cava, Guidance (ICD-10-PCS; 2020-06-08)
DX: A41.02 Sepsis due to Methicillin resistant Staphylococcus aureus (principal); E43 Unspecified severe protein-calorie malnutrition; N17.0 Acute kidney failure with tubular necrosis; I70.262 Atherosclerosis of native arteries of extremities with gangrene, left leg; E11.52 Type 2 diabetes mellitus with diabetic peripheral angiopathy with gangrene; I82.402 Acute embolism and thrombosis of unspecified deep veins of left lower extremity; E11.622 Type 2 diabetes mellitus with other skin ulcer; E11.621 Type 2 diabetes mellitus with foot ulcer; E11.51 Type 2 diabetes mellitus with diabetic peripheral angiopathy without gangrene; M24.562 Contracture, left knee; E11.628 Type 2 diabetes mellitus with other skin complications; I16.0 Hypertensive urgency; R74.8 Abnormal levels of other serum enzymes; D64.9 Anemia, unspecified; E11.22 Type 2 diabetes mellitus with diabetic chronic kidney disease; E78.00 Pure hypercholesterolemia, unspecified; E78.5 Hyperlipidemia, unspecified; I12.9 Hypertensive chronic kidney disease with stage 1 through stage 4 chronic kidney disease, or unspecified chronic kidney disease; L97.523 Non-pressure chronic ulcer of other part of left foot with necrosis of muscle; N18.9 Chronic kidney disease, unspecified; Z83.3 Family history of diabetes mellitus; Z86.73 Personal history of transient ischemic attack (TIA), and cerebral infarction without residual deficits; Z90.49 Acquired absence of other specified parts of digestive tract; Z91.19 Patient's noncompliance with other medical treatment and regimen; Z99.3 Dependence on wheelchair; Z68.28 Body mass index [BMI] 28.0-28.9, adult; Z20.822 Contact with and (suspected) exposure to COVID-19
CPT/HCPCS: 36415; 36573; 71045; 73630; 77001; 80053; 81001; 82550; 82962; 83036; 83605; 84145; 85007; 85025; 85610; 85730; 87040; 87070; 87071; 87075; 87076; 87077; 87086; 87186; 87205; 87426; 88305; 88311; 93005; 93312; 93325; 93923; 93971; 96365; 96368; 99285; A4930; A6223; A6253; A6402; A6443; A6449; C1751; C1892; J0690; J0878; J1100; J1650; J1815; J2270; J2405; J2543; J2704; J3010; J3370; J3490; J7030; J7040; J7050; J7120; U0003; 97110-GO; 97110-GP; 97530-GO; 97530-GP; 97535-GO; G0378

== ENCOUNTER → 2020-09-05 | Outpatient (CLI) | payer OTHER ==
[~2020-09-05] MED LIST changes: +AMLO-186 PO; +ATOR40TA59 PO; +CARV25TA2 PO; +DAPT350V IV; +ERTA1VIA16 IJ; +HYDR-2761 PO; +LACT1CAP19 PO; +METF10007 PO; +SERT100T PO; +SITA100T PO; +TAMS0.4C97 PO
[2020-09-05 12:14] LABS: CALCIUM 8.9 mg/dL (8.5-10.1); CREATININE 1.3 mg/dL (0.7-1.3); GFR 68.8
[2020-09-05 12:20] LABS: BASO % 1 % (0-3); EOS # 0.1 x10^3/uL (0.0-0.7); EOS % 2 % (0-3); HEMOGLOBIN 11.5 g/dL (13.0-17.5); LYMPH # 1.4 x10^3/uL (1.0-4.8); LYMPH % 27 % (24-48); MEAN CORPUSCULAR HEMOGLOBIN 26 pg (25-35); MEAN CORPUSCULAR HGB CONC 33 g/dL (31-37); MEAN CORPUSCULAR VOLUME 78 fL (79-100); MONO # 0.3 x10^3/uL (0.0-1.1); MONO % 6 % (0-9); NEUT # 3.3 x10^3/uL (1.8-7.7); NEUT % 64 % (31-73); PLATELET COUNT 230 x10^3/uL (140-400); RED BLOOD COUNT 4.49 x10^6/uL (4.30-5.70); RED CELL DISTRIBUTION WIDTH 17.9 % (11.5-14.5); WHITE BLOOD COUNT 5.2 x10^3/uL (4.0-11.0)
== END ==
LOC: LAB 11:44
PROVIDERS: ATTEND Preventive Medicine Undersea and Hyperbaric Medicine
DX: E11.621 Type 2 diabetes mellitus with foot ulcer (principal)
CPT/HCPCS: 36415; 80048; 84134; 84466; 85025

== ENCOUNTER → 2020-09-21 | Outpatient (CLI) | payer OTHER | LOC: LAB 11:42 | PROVIDERS: ATTEND Plastic Surgery | DX: Z01.812 Encounter for preprocedural laboratory examination (principal); Z20.822 Contact with and (suspected) exposure to COVID-19; L97.528 Non-pressure chronic ulcer of other part of left foot with other specified severity | CPT/HCPCS: U0003 ==

== ENCOUNTER 2020-09-25 11:40 | Day surgery (SDC) | payer OTHER ==
[~2020-09-25] VITALS: Ht 188 cm; Wt 57.7 kg
[~2020-09-25 11:40] MED LIST changes: +HYDROmorphone 2 MG/ML VIAL IVP PRN; +IV RINGERS,LACTATED 1000ML 1,000 ML IV SCH; +MORPHINE SULFATE 2 MG/ML INJ. IVP PRN; +PROCHLORPERAZINE 10 MG/2 ML VIAL. IVP PRN; +fentaNYL PF VIAL 100 MCG/2 ML VIAL IVP PRN
[2020-09-25] MEDS ORDERED: INSULIN LISPRO 100 UNIT/ML 3ML VIAL for OP,RR ONLY. SQ PRN (11:45)
[2020-09-25] MEDS ORDERED: INSULIN LISPRO 100 UNIT/ML 3ML VIAL for OP,RR ONLY. SQ ONE (12:25)
[2020-09-25] MEDS ORDERED: MINERAL OIL for SURGERY 10 ML VIAL. MC ONE ×3 (12:32→12:33)
[2020-09-25] MEDS ORDERED: BUPIVACAINE-EPI 0.5% 30 ML VIAL KIT. ONE (12:32)
[2020-09-25] MEDS ORDERED: EPINEPHrine VIAL 30 MG/30 ML VIAL ONE (12:42)
[2020-09-25] MEDS ORDERED: PROPOFOL 10 MG/ML (20ML) VIAL. IV ONE (12:58)
[2020-09-25] MEDS ORDERED: DEXAMETHASONE SOD PHOS 4 MG/ML VIAL ONE (12:58)
[2020-09-25] MEDS ORDERED: ONDANSETRON PF 4 MG/2 ML VIAL. ONE (12:58)
[2020-09-25] MEDS ORDERED: SEVOFLURANE 61 TO 120 MINUTES. IH ONE (12:58)
[2020-09-25] MEDS ORDERED: LIDOCAINE 2% PF 5 ML VIAL. ONE (12:58)
[2020-09-25] MEDS ORDERED: ePHEDrine PF IN SALINE 50 MG/10 ML SYRINGE. IV ONE (13:17)
[2020-09-25 15:05] VITALS: BP 193/99
--- NOTE | 2020-09-27 11:40 | PDOC4 ---
OPERATIVE NOTE Date: Date: Sep 25, 2020 Pre-Op Diagnosis: Nonhealing left foot wound status post TMA Post-Op Diagnosis: same Procedure Performed: 1. Debridement of left foot wound in preparation for skin graft 2. Split thickness skin graft to left foot wound 6 x 4 cm, CPT 71561 3. Application of wound vac, CPT 74198 Surgeon: Flora Noriega MD Anesthesia Type: General endotracheal anesthesia Blood Loss: Minimal Specimans Obtained: None Findings: See op note Complications: None Operative Note: Informed consent was taken in the preoperative holding area. The risk of bleeding, infection, poor wound healing, failure of the skin graft, need for repeat procedures were discussed with the patient. He understood and desire to proceed. The patient was brought to the operating room and placed on the OR table. IV antibiotics were given.General endotracheal anesthesia was induced. The left lower extremity was prepped with Betadine and draped in a sterile fashion.A timeout was completed verifying the correct site, patient, and procedure. I began the procedure by measuring the wound which measured 6.0cm x 3.5 cm x 0.2cm. I then marked an area for the skin graft on the left lateral thigh. Using a solution of 30 mL normal saline with 0.25% bupivacaine with epinephrine the outlined area of the lateral thigh was anesthetized via tumescence. I then turned my attention to the left thigh wound. A curette was used to thoroughly debride the wound bed. The wound was irrigated with 1 L of saline. A lap sponge soaked with saline and epinephrine was placed over the wound bed. Mineral oil was placed over the site of the skin graft to be harvested from the left lateral thigh. A Kathrin dermatome was adjusted to 0.013 inches and used to harvest the skin graft. The skin graft was gently placed on the mesher and meshed in a 1: 1.5 ratio. The skin graft was then placed on the wound bed and secured with 4-0 chromic suture. The VAC drape was fenestrated and placed over the skin graft. A black VAC sponge was placed over the fenestrated drape and secured with additional vac drape The port was placed. Good seal was obtained. The left foot and thigh were then wrapp ed in 4 inch Kerlix followed by 4 inch lottie wrap.The patient tolerated the procedure well and was transferred to the recovery room in stable condition. FLORA NORIEGA MD 8, 2021 11:39
--- NOTE | 2020-10-01 12:27 | PDOC1 ---
H & P. DATE OF SERVICE: DATE: 09/25/20 TIME: 12:25 HPI: Pt has a nonhealing left foot wound s/p TMA and presents for a STSG and wound vac. ROS: Constitutional: Denies fever, fatigue, chills HEENT: Denies sore throat, vision changes Cardio: Denies chest pain, dyspnea with exertion, syncope, palpitations, edema Pulmonary: Denies shortness of breath, cough, wheezing GI: Denies nausea, vomiting, diarrhea, constipation : Denies dysuria, frequency, urgency, incontinence Skin: Denies new lesions Neuro: Denies weakness, paresthesias ED COURSE: NA PMH: See chart FAMILY HX: Noncontributory SOCIAL HX: No smoking SURGICAL HX: TMA 05/2020 MEDS: Reviewed and reconciled ALLERGIES: Reviewed PE: Alert, oriented, no acute distress EOMI, sclera non-icteric Neck supple RRR, no murmur CTAB, no wheezes, crackles or rhonchi Soft, NT, ND, normal bowel sounds, no rebound, guarding. Negative Huff's sign. No edema, cyanosis. Normal capillary refill. Calm, cooperative, mood/affect within normal limits ASSESSMENT & PLAN: Pt with nonhealing left foot wound s/p TMA for debridement, STSG, and wound vac placement. Will proceed. Flora Noriega MD Justifications for Admission Other Justification FLORA NORIEGA MD Oct 01, 2020 12:27
== END 2020-09-25 15:41 | disposition home or self-care (01) ==
LOC: SURG 11:40
PROVIDERS: ATTEND Plastic Surgery
DX: L97.528 Non-pressure chronic ulcer of other part of left foot with other specified severity (principal); I10 Essential (primary) hypertension; E78.00 Pure hypercholesterolemia, unspecified; M19.90 Unspecified osteoarthritis, unspecified site; E11.9 Type 2 diabetes mellitus without complications; F32.9 Major depressive disorder, single episode, unspecified; Z79.899 Other long term (current) drug therapy; Z98.890 Other specified postprocedural states
CPT/HCPCS: 15100; 82962; 97605; A4213; A4930; A6214; A6223; A6253; A6258; A6402; A6449; J0171; J1100; J1815; J2405; J2704